=== PATIENT | male | born 1970 | race Caucasian/White ===

== ENCOUNTER 2018-07-12 10:08 | Inpatient (IN) | payer MEDICAID, SELFPAY ==
[2015-04-11 18:33] VITALS: BMI 28.0
[2018-07-12 10:10] VITALS: BP 172/114; PULSE 88; RESP 16; TEMP 36.5; O2SAT 97; BMI 28.8
[2018-07-12 10:57] LABS: Absolute Neutrophil Count 5.1 X10^3/uL (2.0-7.7); Basophil# 0.03 X10^3/uL; Basophil% 0.4 % (0-1); Eosinophil# 0.09 X10^3/uL; Eosinophils% 1.1 % (0-5); Hemoglobin 14.6 g/dl (13.0-16.5); Lymphocyte % 19.6 % (19-41); Mean Corp Hgb Conc 33.2 g/gl (32-36); Mean Corpuscular Hgb 33.2 pg (27.0-32.0); Mean Platelet Vol. 9.1 fl (6.2-12.0); Monocyte# 1.31 X10^3/uL; Neutrophil # 5.12 X10^3/uL (2.7-7.7); Neutrophil % 62.7 % (47-70); Platelet Count 289 K/mm3 (150-450); RBC Distribution Width CV 12.9 % (11.6-14.6); RBC Distribution Width SD 47.4 fl (35.1-43.9); White Blood Count 8.2 K/mm3 (4.4-11.0)
[2018-07-12 10:58] LABS: POSITIVE COUNT NO; POSITIVE DIFFERENTIAL NO; POSITIVE MORPHOLOGY NO
[2018-07-12 11:09] LABS: ALB/GLOB Ratio 0.9 RATIO (0.9-2.4); AST(SGOT) 37 U/L (15-37); Alanine Aminotransfer ALT/SGPT 83 U/L (16-61); Albumin, Serum 3.9 g/dL (3.2-5.0); Alkaline Phosphatase 68 U/L (45-117); Anion Gap 7 (5-15); BUN 12 mg/dL (7-18); BUN/Creat Ratio 13.2 RATIO (10-20); Calcium,Total 8.3 mg/dL (8.5-10.1); Chloride 101 mmol/L (98-107); Creatinine, Serum 0.91 mg/dL (0.70-1.30); EST Glomerular Filtration Rate 94 mL/min (>60); Est Glom Filt Rate - Afr Amer 114 mL/min (>60); Estimated Creatinine Clearance 97.12 ml/min; Globulin 4.2 g/dL (2.2-4.2); Glucose 102 mg/dL (74-106); Lipase 291 U/L (73-393); Potassium 3.9 mmol/L (3.5-5.1); Protein, Total 8.1 g/dL (6.4-8.2); Sodium Level 136 mmol/L (136-145)
--- NOTE | 2018-07-12 11:13 | ED.VISSUMM ---
- ER Visit Summary Date of Service: 07/12/18 Chief Complaint: [Request for detox from alcohol] History of Present Illness: The patient is a 48 M [presents to the emergency department complaining of wanting to detox from alcohol today. Patient states his last drink was around 3 AM today. Patient spoke with Lindsey Junior and was advised to come to the emergency department. Patient complains of some mild nausea and feeling shaky. Patient states he last went through detox a week ago and was admitted as an inpatient for 4 days. Patient started drinking again the day he got out. Patient states that he has been since let go from his job even though he had a doctor's excuse for being absent. Patient feels like that caused him to want to continue drinking. Patient denies feeling homicidal or suicidal. He denies any significant abdominal pain, chest pain, shortness of breath. Patient has a history of hypertension.] Physical Examination: [HEENT-PERRLA, EOMI. Cranial nerves II through XII grossly intact. TMs clear. Mucous membranes moist. No adenopathy. Cardiovascular-regular rate and rhythm without murmur or ectopy Lungs-clear to auscultation, chest wall stable without crepitus or subcu emphysema Abdomen-normoactive bowel sounds, soft, nontender, no rebound or rigidity, no peritoneal signs. Neuro hrjf-ipqezo-uaeo and heel ordoñez testing within normal limits, negative Romberg, negative for drift, fundi benign. Patient has a faint tremor noted with arms extended. Extremities-intact ?4, normal range of motion, normal pulses, atraumatic] Test Results: [CBC with differential obtained was normal. Chemistries unremarkable. LFTs were normal. Lipase was 291. Alcohol level was 168.] Emergency Department Course and Treatment: [Patient received Librium 25 mg p.o. Patient was evaluated by lindsey junior and recommendation was made for admission.] Treatment Plan: [Patient will be evaluated by hospitalist for admission] Disposition: [Admit] Impression: [Alcohol withdrawal Request for alcohol detox] This note was generated with [employer] dictation software. It may contain incorrect words, spelling, and punctuation that were not noted in review of the chart prior to signing ED Disposition - Plan for ED Patient: Referrals: Care Physician,No Primary [Primary Care Provider] -
[2018-07-12] MEDS: chlordiazePOXIDE 25 MG Capsule PO (12:05)
--- NOTE | 2018-07-12 12:48 | HP.PCM_ITS ---
Problem List (1) Alcohol withdrawal Status: Acute (2) Essential (primary) hypertension Status: Chronic (3) Alcohol dependence Status: Chronic (4) Tobacco dependence Status: Chronic History of Present Illness Date of Admission: 07/12/18 Chief Complaint: Tremors The patient is a 48 year old M with past medical history pertinent for alcohol dependence who recently completed alcohol detox at the facility in [facility] but resumed drinking after getting out of the facility. Patient presented to the emergency department with chief complaints of tremulousness. His last alcohol use was on the morning prior to being admitted. Alcohol level on admission was 168. His CIWA score was estimated to be 15. Admitted to regular nursing floor for medical stabilization. Questioning patient denied any hallucination denied any nausea no vomiting but did complain of tremulousness as stated above in addition to feeling anxious. Past Medical History Past Medical History (Chronic Problems): Chronic Problems Essential (primary) hypertension (Chronic) Alcohol dependence (Chronic) Tobacco dependence (Chronic) Allergies No Known Allergies Allergy (Verified 07/12/18 10:10) Smoking Status: Heavy Smoker (>10/day) - *Family History Paternal History Items: - - No documented history of hypertension, diabetes, no alcohol use Review of Systems Constitutional: Denies: Anorexia, Chills, Fever, Night Sweats, Weight Change HEENT: Denies: Head Aches, Sinus Congestion, Sinus Drainage Cardiovascular: Denies: Chest Pain, Orthopnea, Palpitations, Paroxysmal Noc. Dyspnea Respiratory: Denies: Cough, Shortness of breath at rest, Shortness of breath upon exertion, Sputum production Gastrointestinal: Denies: Abdominal Pain, Hematemesis, Hematochezia, Nausea, Melena, Vomiting Genitourinary: Denies: Dysuria, Frequency, Hematuria, Urgency Musculoskeletal: Denies: Joint Pain, Joint Tenderness Skin: Denies: Rash Neurological: Reports: Tremor. Denies: Focal weakness, Numbness, Tingling Psychiatric: Reports: Anxiety. Denies: Homicidal Ideations, Suicidal Ideations Hematologic/ Lymphatic: Denies: Easy Bruising, Easy Bleeding VTE Information - Inpt Only VTE Present on Admission: No VTE Mechan Device Prophylaxis: None Reason prophylaxis not ordered:: Treatment Not Indicated Patient Problems: Active and Suspected Problems Alcohol withdrawal (Acute) Objective: GENERAL: cooperative HEENT: Atraumatic; moist oral mucosa EYES; Anicteric, Normal Conjunctiva NECK; supple, normal thyroid, no distended JVD. RESPIRATORY: Diminished to auscultation bilaterally, CARDIOVASCULAR: Regular S1 S2, no audible murmurs GI: soft, non-tender, normoactive bowel sounds, : No Renal angle tenderness; EXTREMITIES: No edema, no clubbing, no cyanosis. MUSCULOSKELETAL: No Joint Tenderness; no muscle waisting NEURO: Awake; no lateralizing signs. SKIN: No Rash PSYCH; Normal affect - Physical Exam Vital Signs Temp Pulse Resp BP Pulse Ox 97.7 F L 88 16 172/114 H 97 07/12/18 10:10 07/12/18 10:10 07/12/18 10:10 07/12/18 10:10 07/12/18 10:10 Oxygen Delivery Method Room Air Weight: 88.4 kg Body Mass Index (BMI) 28.8 Laboratory Tests Past 24 Hrs 07/12/18 07/12/18 07/12/18 10:45 10:45 10:45 WBC 8.2 RBC 4.40 L Hgb 14.6 Hct 44.0 MCV 100.0 H MCH 33.2 H MCHC 33.2 RDW 12.9 RDW Differential 47.4 H Plt Count 289 MPV 9.1 Immature Gran % (Auto) 0.200 Neut % (Auto) 62.7 Lymph % (Auto) 19.6 [place] % (Auto) 16.0 H Eos % (Auto) 1.1 Baso % (Auto) 0.4 Absolute Neuts (auto) 5.1 Absolute Lymphs (auto) 1.60 Total Counted Not Reportable Sodium 136 Potassium 3.9 Chloride 101 Carbon Dioxide 28.0 Anion Gap 7 BUN 12 Creatinine 0.91 Estim Creat Clear Calc 97.12 Est GFR (MDRD) Af Amer 114 Est GFR (MDRD) Non-Af 94 BUN/Creatinine Ratio 13.2 Glucose 102 Calcium 8.3 L Total Bilirubin 0.30 AST 37 ALT 83 H Alkaline Phosphatase 68 Total Protein 8.1 Albumin 3.9 Globulin 4.2 Albumin/Globulin Ratio 0.9 Lipase 291 Ethyl Alcohol 168.0 Assessment/Plan All Active Problems Alcohol withdrawal (Acute) Patient is a 48-year-old gentleman with history of chronic alcohol use presented with withdrawal symptoms 1. Acute alcohol withdrawal patient has been admitted to regular nursing floor for medical stabilization using Librium 2. Chronic alcohol abuse counseled on cessation 3. Tobacco dependence counseled on cessation, offered nicotine patch for tobacco cravings 4. Hypertension previously on lisinopril however patient has not remained compliant 5. DVT prophylaxis low risk did encourage early ambulation Code Visit Inpatient E&M: 35956 Init Hosp L3
[2018-07-12 13:52] VITALS: BMI 27.6
[2018-07-12 13:57] VITALS: BP 153/109; PULSE 85; RESP 18; TEMP 36.7; O2SAT 99
[2018-07-12 14:00] VITALS: BP 153/109; PULSE 85; RESP 18; TEMP 36.7
[2018-07-12 14:05] VITALS: BMI 27.6
[2018-07-12] MEDS: Multivitamins,Therapeutic Tablet 1 TABLET PO ×2 (14:49)
[2018-07-12] MEDS: Lactated Ringers 1,000 ML 125 ML IV (14:49)
[2018-07-12] MEDS: chlordiazePOXIDE 25 MG Capsule 50 MG PO ×2 (14:49→20:44)
[2018-07-12] MEDS: hydrOXYzine PAM 25 MG Capsule 50 MG PO (14:50)
[2018-07-12] MEDS: Famotidine 20 MG Tablet PO ×2 (14:50)
[2018-07-12] MEDS: Thiamine Hydrochloride 100 MG Tablet PO ×2 (14:50)
[2018-07-12 18:00] VITALS: BP 150/98; PULSE 96; RESP 18; TEMP 36.8
[2018-07-12] MEDS: Methocarbamol 750 MG Tablet PO (20:44)
[2018-07-12] MEDS: traZODone 50 MG Tablet PO (20:44)
[2018-07-12 20:52] VITALS: BP 149/80; PULSE 87; RESP 16; TEMP 36.7; O2SAT 97
[2018-07-12 20:55] VITALS: BP 149/80; PULSE 87; RESP 16; TEMP 36.7
[2018-07-13] MEDS: chlordiazePOXIDE 25 MG Capsule 50 MG PO ×3 (02:07→18:51)
[2018-07-13 02:14] VITALS: BP 130/85; PULSE 62; RESP 16; TEMP 36.3
[2018-07-13] MEDS: Methocarbamol 750 MG Tablet PO (06:35)
[2018-07-13] MEDS: hydrOXYzine PAM 25 MG Capsule 50 MG PO (06:35)
[2018-07-13] MEDS: 0.9% NaCl Peripheral Flush Adult/Peds IV (06:36)
[2018-07-13 06:39] VITALS: BP 121/87; PULSE 73; RESP 16; TEMP 36.3
--- NOTE | 2018-07-13 07:37 | PN_ITS ---
Patient Problems: Active and Suspected Problems Alcohol withdrawal (Acute) Subjective: Patient is a 48-year-old gentleman with history of chronic alcohol abuse admitted with acute alcohol withdrawal admitted to regular nursing floor where he is currently undergoing medical stabilization. Patient seen still complains of feeling tremulous Objective: GENERAL: cooperative HEENT: Atraumatic; moist oral mucosa EYES; Anicteric, Normal Conjunctiva NECK; supple, normal thyroid, no distended JVD. RESPIRATORY: Diminished to auscultation bilaterally, CARDIOVASCULAR: Regular S1 S2, no audible murmurs GI: soft, non-tender, normoactive bowel sounds, : No Renal angle tenderness; EXTREMITIES: No edema, no clubbing, no cyanosis. NEURO: Awake; no lateralizing signs. SKIN: No Rash PSYCH; Normal affect Vitals/I&O's: Vital Signs Temp Pulse Resp BP Pulse Ox 97.4 F L 73 16 121/87 H 97 07/13/18 06:39 07/13/18 06:39 07/13/18 06:39 07/13/18 06:39 07/12/18 20:52 Oxygen Delivery Method Room Air Weight: 84.822 kg Body Mass Index (BMI) 27.6 Intake and Output for Last 24 Hours 07/11/18 07/12/18 07/13/18 23:59 23:59 23:59 Intake Total 1643 / 1643 Balance 1643 / 1643 Laboratory Results 07/12/18 10:45: WBC 8.2, RBC 4.40 L, Hgb 14.6, Hct 44.0, MCV 100.0 H, MCH 33.2 H , MCHC 33.2, RDW 12.9, RDW Differential 47.4 H, Plt Count 289, MPV 9.1, Immature Gran % (Auto) 0.200, Neut % (Auto) 62.7, Lymph % (Auto) 19.6, [place] % (Auto) 16.0 H, Eos % (Auto) 1.1, Baso % (Auto) 0.4, Absolute Neuts (auto) 5.1, Absolute Lymphs (auto) 1.60, Total Counted Not Reportable 07/12/18 10:45: Sodium 136, Potassium 3.9, Chloride 101, Carbon Dioxide 28.0, Anion Gap 7, BUN 12, Creatinine 0.91, Estim Creat Clear Calc 97.12, Est GFR (MDRD) Af Amer 114, Est GFR (MDRD) Non-Af 94, BUN/Creatinine Ratio 13.2, Glucose 102, Calcium 8.3 L, Total Bilirubin 0.30, AST 37, ALT 83 H, Alkaline Phosphatase 68, Total Protein 8.1, Albumin 3.9, Globulin 4.2, Albumin/Globulin Ratio 0.9, Lipase 291 07/12/18 10:45: Ethyl Alcohol 168.0 Current Medications Acetaminophen (Tylenol) 500 mg PO Q4H PRN PRN PRN Reason: Temp > 100.4 F Al Hydroxide/Mg Hydroxide (Mylanta Ii) 30 ml PO Q6H PRN PRN PRN Reason: dyspesia Bisacodyl (Dulcolax) 10 mg RECTAL DAILY PRN PRN Reason: Constipation Bisacodyl (Dulcolax) 5 mg PO DAILY PRN PRN PRN Reason: Constipation Chlordiazepoxide (Librium) 50 mg PO Q6H COUNT INCLUDES THE [facility]; Taper Stop: 07/15/18 16:59 Last Admin: 07/13/18 02:07 Dose: 50 mg Dicyclomine HCl (Bentyl) 20 mg PO Q6H PRN PRN PRN Reason: abdominal discomfort Famotidine (Pepcid) 20 mg PO BID COUNT INCLUDES THE [facility] Last Admin: 07/12/18 14:50 Dose: 20 mg [facility]) [facility] Hydroxyzine Pamoate (Vistaril Pamoate Capsule) 50 mg PO Q6H PRN PRN PRN Reason: Mild Anxiety (score 1/3) Last Admin: 07/13/18 06:35 Dose: 50 mg Thiamine HCl 200 mg/ Sodium (Chloride) 52 mls @ 200 mls/hr IV DAILY COUNT INCLUDES THE [facility] Ibuprofen (Motrin) 600 mg PO Q8H PRN PRN PRN Reason: Mild-Moderate Pain (1-5/10) Loperamide HCl (Imodium) 2 - 4 mg PO UD PRN PRN Reason: LOOSE STOOLS Lorazepam (Ativan) 1 mg IV Q4H PRN PRN PRN Reason: Severe Anxiety Magnesium Hydroxide (Milk Of Magnesia) 30 ml PO DAILY PRN PRN PRN Reason: Constipation Methocarbamol (Methocarbamol) 750 mg PO Q6H PRN PRN PRN Reason: Muscle Aches Last Admin: 07/13/18 06:35 Dose: 750 mg Multivitamins (Multivitamin) [facility] Last Admin: 07/12/18 14:49 Dose: 1 tablet Nicotine (Nicoderm Cq (Pbkc)) 21 mg TRANSDERM. DAILY COUNT INCLUDES THE [facility] Last Admin: 07/12/18 14:50 Dose: 21 mg Ondansetron HCl (Zofran Odt) 4 mg PO Q6H PRN PRN PRN Reason: NAUSEA Psyllium Hydrophilic Mucilloid (Metamucil) 1 packet PO DAILY PRN PRN PRN Reason: CONSTIPATION Senna (Senokot) 1 tablet PO QHS PRN PRN Reason: Constipation Sodium Chloride () 5 - 15 ml IV UD PRN PRN Reason: SALINE FLUSH Last Admin: 07/13/18 06:36 Dose: 10 ml Thiamine HCl (Vitamin B1) [facility] Last Admin: 07/12/18 14:50 Dose: 100 mg Trazodone HCl (Desyrel) 50 mg PO QHS COUNT INCLUDES THE [facility] Last Admin: 07/12/18 20:44 Dose: 50 mg Medical Necessity - Tobacco Use Smoking Status: Heavy Smoker (>10/day) Assessment/Plan All Active Problems Alcohol withdrawal (Acute) Patient is a 48-year-old gentleman with history of chronic alcohol use presented with withdrawal symptoms 1. Acute alcohol withdrawal patient has been admitted to regular nursing floor for medical stabilization using Librium 2. Chronic alcohol abuse counseled on cessation 3. Tobacco dependence counseled on cessation, offered nicotine patch for tobacco cravings 4. Hypertension previously on lisinopril however patient has not remained compliant 5. DVT prophylaxis low risk did encourage early ambulation Code Visit Inpatient E&M: 11990 Subs Hosp L3
[2018-07-13 09:07] VITALS: BP 117/72; PULSE 70; RESP 16; TEMP 36.6; O2SAT 98
[2018-07-13] MEDS: Thiamine Hydrochloride 100 MG Tablet PO (09:23)
[2018-07-13] MEDS: Famotidine 20 MG Tablet PO ×2 (09:23→20:49)
[2018-07-13] MEDS: Folic Acid 1 MG Tablet PO (09:23)
[2018-07-13] MEDS: Multivitamins,Therapeutic Tablet 1 TABLET PO (09:23)
[2018-07-13 14:21] VITALS: BP 139/99; PULSE 79; RESP 18; TEMP 36.8; O2SAT 98
--- NOTE | 2018-07-13 16:09 | CHAPLAIN ---
Type of Pastoral Visit _x__ Initial Visit ___ Follow-up Visit ___ On-call Visit ___ General Patient Visit ___ Spiritual Assessment ___ Family Conference ___ Bereavement ___ Rapid Response ___ Code Blue ___ Other (describe below) Pastoral Care Referral From _x__ Patient ___ Family ___ Nurse ___ Physician ___ Bilingual Hr Generalist ___ Anatomic Pathologist _x- [facility] staff - Other (describe below) Sacrament/Intervention _x__ Active listening ___ Anointing ___ Religious ___ Bereavement ___ Communion _x__ Leanne exploration ___ _x__ Life review _x__ Prayer ___ Reconciliation ___ Sacrament of Sick _x__ Supportive presence ___ Wedding ___ Other (describe below) Pastoral Comments long presentation of life story and admissions of life regrets and decisions; pt has a heritage of [employer] and [employer] attendance in childhood and is open to spiritual help; pt is disconnected from spiritual support at this time but has supportive parents; pt says that his three children are doing very well in life; pt describes his situation as being at rock bottom; patient describes a list of worries and has anxiety about how he is going to get out of this mess; pt welcomes prayer and is open to further visits
[2018-07-13 18:52] VITALS: BP 131/72; PULSE 69; RESP 16; TEMP 36.4; O2SAT 97
[2018-07-13] MEDS: traZODone 50 MG Tablet PO (20:49)
[2018-07-13 20:56] VITALS: BP 113/71; PULSE 60; RESP 16; TEMP 36.4; O2SAT 97
[2018-07-14] MEDS: chlordiazePOXIDE 25 MG Capsule 50 MG PO ×2 (01:05→08:52)
[2018-07-14 01:32] VITALS: BP 117/79; PULSE 66; RESP 16; TEMP 36.3
[2018-07-14] MEDS: hydrOXYzine PAM 25 MG Capsule 50 MG PO (05:28)
--- NOTE | 2018-07-14 07:24 | PCM.PN.HOSP ---
Patient Problems: Active and Suspected Problems Alcohol withdrawal (Acute) Subjective: Patient seen he wants to be discharged so he can go to [facility] for his long-term rehab Objective: GENERAL: cooperative HEENT: Atraumatic; moist oral mucosa EYES; Anicteric, Normal Conjunctiva NECK; supple, normal thyroid, no distended JVD. RESPIRATORY: Diminished to auscultation bilaterally, CARDIOVASCULAR: Regular S1 S2, no audible murmurs GI: soft, non-tender, normoactive bowel sounds, : No Renal angle tenderness; EXTREMITIES: No edema, no clubbing, no cyanosis. NEURO: Awake; no lateralizing signs. SKIN: No Rash PSYCH; Normal affect Vitals/I&O's: Vital Signs Temp Pulse Resp BP Pulse Ox 97.4 F L 66 16 117/79 97 07/14/18 01:32 07/14/18 01:32 07/14/18 01:32 07/14/18 01:32 07/13/18 20:56 Oxygen Delivery Method Room Air Weight: 84.8 kg Body Mass Index (BMI) 27.6 Intake and Output for Last 24 Hours 07/12/18 07/13/18 07/14/18 23:59 23:59 23:59 Intake Total 1643 / 1643 Balance 1643 / 1643 Current Medications Acetaminophen (Tylenol) 500 mg PO Q4H PRN PRN PRN Reason: Temp > 100.4 F Al Hydroxide/Mg Hydroxide (Mylanta Ii) 30 ml PO Q6H PRN PRN PRN Reason: dyspesia Bisacodyl (Dulcolax) 10 mg RECTAL DAILY PRN PRN Reason: Constipation Bisacodyl (Dulcolax) 5 mg PO DAILY PRN PRN PRN Reason: Constipation Chlordiazepoxide (Librium) 50 mg PO Q8H COUNTS INCLUDE 234 BEDS AT THE [facility]; Taper Stop: 07/15/18 16:59 Last Admin: 07/14/18 01:05 Dose: 50 mg Dicyclomine HCl (Bentyl) 20 mg PO Q6H PRN PRN PRN Reason: abdominal discomfort Famotidine (Pepcid) 20 mg PO BID COUNTS INCLUDE 234 BEDS AT THE [facility] Last Admin: 07/13/18 20:49 Dose: 20 mg [facility] Last Admin: 07/13/18 09:23 Dose: 1 mg Hydroxyzine Pamoate (Vistaril Pamoate Capsule) 50 mg PO Q6H PRN PRN PRN Reason: Mild Anxiety (score 1/3) Last Admin: 07/14/18 05:28 Dose: 50 mg Ibuprofen (Motrin) 600 mg PO Q8H PRN PRN PRN Reason: Mild-Moderate Pain (1-5/10) Loperamide HCl (Imodium) 2 - 4 mg PO UD PRN PRN Reason: LOOSE STOOLS Lorazepam (Ativan) 1 mg IV Q4H PRN PRN PRN Reason: Severe Anxiety Magnesium Hydroxide (Milk Of Magnesia) 30 ml PO DAILY PRN PRN PRN Reason: Constipation Methocarbamol (Methocarbamol) 750 mg PO Q6H PRN PRN PRN Reason: Muscle Aches Last Admin: 07/13/18 06:35 Dose: 750 mg Multivitamins (Multivitamin) [facility] Last Admin: 07/13/18 09:23 Dose: 1 tablet Nicotine (Nicoderm Cq (Pbkc)) 21 mg TRANSDERM. DAILY COUNTS INCLUDE 234 BEDS AT THE [facility] Last Admin: 07/13/18 18:51 Dose: 21 mg Ondansetron HCl (Zofran Odt) 4 mg PO Q6H PRN PRN PRN Reason: NAUSEA Psyllium Hydrophilic Mucilloid (Metamucil) 1 packet PO DAILY PRN PRN PRN Reason: CONSTIPATION Senna (Senokot) 1 tablet PO QHS PRN PRN Reason: Constipation Sodium Chloride () 5 - 15 ml IV UD PRN PRN Reason: SALINE FLUSH Last Admin: 07/13/18 06:36 Dose: 10 ml Thiamine HCl (Vitamin B1) [facility] Last Admin: 07/13/18 09:23 Dose: 100 mg Trazodone HCl (Desyrel) 50 mg PO QHS COUNTS INCLUDE 234 BEDS AT THE [facility] Last Admin: 07/13/18 20:49 Dose: 50 mg Medical Necessity - Tobacco Use Smoking Status: Heavy Smoker (>10/day) Assessment/Plan All Active Problems Alcohol withdrawal (Acute) Patient is a 48-year-old gentleman with history of chronic alcohol use presented with withdrawal symptoms 1. Acute alcohol withdrawal patient has been admitted to regular nursing floor for medical stabilization using Librium 2. Chronic alcohol abuse counseled on cessation 3. Tobacco dependence counseled on cessation, offered nicotine patch for tobacco cravings 4. Hypertension previously on lisinopril however patient has not remained compliant 5. DVT prophylaxis low risk did encourage early ambulation Code Visit Inpatient E&M: 45216 Subs Hosp L2
--- NOTE | 2018-07-14 08:06 | DCINST_ITS ---
- Discharge Diagnoses Current Active Problems: Current Active and Chronic Problems Essential (primary) hypertension (Chronic) Alcohol withdrawal (Acute) Alcohol dependence (Chronic) Tobacco dependence (Chronic) You will use the following diet at home:: No restrictions Discharge Activity: May not drive while taking narcotic pain medications. Allergies/Adverse Reactions: Allergies No Known Allergies Allergy (Unverified 07/12/18 10:10) Medications to take at Discharge Allopurinol [Zyloprim] 100 mg PO DAILYCM 04/11/15 Hydrocodone/Acetaminophen [Hydrocodone-Acetamin 10-325 mg] 1 each PO DAILY 04/11/15 Omeprazole [Prilosec] 40 mg PO DAILY 04/11/15 Ondansetron [Zofran Odt] 8 mg PO Q8H PRN PRN #10 04/11/15 Lisinopril [Prinivil] 5 mg PO 07/12/18 Primary Care Physician: Care Physician,No Primary [Primary Care Provider] - Please follow up with your Primary Care Physician in: in 1-2 weeks Test Results: Test results from this visit will be discussed in further detail at your follow- up appointment, if applicable. Proposed Discharge Date: 07/14/18
--- NOTE | 2018-07-14 08:06 | PCM.DC.SUM ---
Discharge Date and Diagnosis - Problem List Patient Problems: Active and Suspected Problems Alcohol withdrawal (Acute) Date of Admission: 07/12/18 Date of Discharge: 07/14/18 - Primary Discharge Diagnosis Active and Suspected Problems Alcohol withdrawal (Acute) - Secondary Discharge Diagnosis Chronic Problems Essential (primary) hypertension (Chronic) Alcohol dependence (Chronic) Tobacco dependence (Chronic) Hospital Course and Treatment Summary of Care Provided: Patient is a 48-year-old gentleman with history of chronic alcohol use presented with withdrawal symptoms 1. Acute alcohol withdrawal patient has been admitted to regular nursing floor for medical stabilization using Librium patient requested to be discharged on 07/14/2018 2 days after his hospitalization so he called transition to [facility] in [facility] for long-term rehab 2. Chronic alcohol abuse counseled on cessation 3. Tobacco dependence counseled on cessation, offered nicotine patch for tobacco cravings 4. Hypertension previously on lisinopril however patient has not remained compliant 5. DVT prophylaxis low risk did encourage early ambulation Patient Problems: Active and Suspected Problems Alcohol withdrawal (Acute) Objective: GENERAL: cooperative HEENT: Atraumatic; moist oral mucosa EYES; Anicteric, Normal Conjunctiva NECK; supple, normal thyroid, no distended JVD. RESPIRATORY: Diminished to auscultation bilaterally, CARDIOVASCULAR: Regular S1 S2, no audible murmurs GI: soft, non-tender, normoactive bowel sounds, : No Renal angle tenderness; EXTREMITIES: No edema, no clubbing, no cyanosis. NEURO: Awake; no lateralizing signs. SKIN: No Rash PSYCH; Normal affect - Physical Exam Vital Signs Temp Pulse Resp BP Pulse Ox 97.4 F L 66 16 117/79 97 07/14/18 01:32 07/14/18 01:32 07/14/18 01:32 07/14/18 01:32 07/13/18 20:56 Oxygen Delivery Method Room Air Weight: 84.8 kg Body Mass Index (BMI) 27.6 Intake and Output for Last 24 Hours 07/12/18 07/13/18 07/14/18 23:59 23:59 23:59 Intake Total 1643 / 1643 Balance 1643 / 1643 Discharge Activity: May not drive while taking narcotic pain medications. Home Medications: Medications to take at Discharge Allopurinol [Zyloprim] 100 mg PO DAILYCM 04/11/15 Hydrocodone/Acetaminophen [Hydrocodone-Acetamin 10-325 mg] 1 each PO DAILY 04/11/15 Omeprazole [Prilosec] 40 mg PO DAILY 04/11/15 Ondansetron [Zofran Odt] 8 mg PO Q8H PRN PRN #10 04/11/15 Lisinopril [Prinivil] 5 mg PO 07/12/18 Primary Care Physician: Care Physician,No Primary [Primary Care Provider] - Please follow up with your Primary Care Physician in: in 1-2 weeks Disposition: Home Minutes spent on discharge:: 35 Patient Condition:: Stable Medical Necessity - Tobacco Use Smoking Status: Heavy Smoker (>10/day) Tobacco Use: Cigarettes Meaningful Use Info Meaningful Use Diagnoses (Choose all that apply): None applicable Code Visit Inpatient E&M: 48880 Disch Hosp
[2018-07-14] MEDS: Folic Acid 1 MG Tablet PO (08:41)
[2018-07-14] MEDS: Thiamine Hydrochloride 100 MG Tablet PO (08:41)
[2018-07-14] MEDS: Famotidine 20 MG Tablet PO (08:41)
[2018-07-14] MEDS: Multivitamins,Therapeutic Tablet 1 TABLET PO (08:42)
--- NOTE | 2018-07-14 08:58 | DCINST_ITS ---
- Discharge Diagnoses Current Active Problems: Current Active and Chronic Problems Essential (primary) hypertension (Chronic) Alcohol withdrawal (Acute) Alcohol dependence (Chronic) Tobacco dependence (Chronic) Discharge Activity: May not drive while taking narcotic pain medications. Allergies/Adverse Reactions: Allergies No Known Allergies Allergy (Unverified 07/12/18 10:10) Medications to take at Discharge Allopurinol [Zyloprim] 100 mg PO DAILYCM 04/11/15 Hydrocodone/Acetaminophen [Hydrocodone-Acetamin 10-325 mg] 1 each PO DAILY 04/11/15 Omeprazole [Prilosec] 40 mg PO DAILY 04/11/15 Ondansetron [Zofran Odt] 8 mg PO Q8H PRN PRN #10 04/11/15 Lisinopril [Prinivil] 5 mg PO DAILY 90 Days #90 tab 07/14/18 The following prescriptions were given: Lisinopril [Prinivil] 5 mg PO DAILY 90 Days #90 tab Primary Care Physician: Care Physician,No Primary [Primary Care Provider] - Please follow up with your Primary Care Physician in: in 1-2 weeks Test Results: Test results from this visit will be discussed in further detail at your follow- up appointment, if applicable. Proposed Discharge Date: 07/14/18
[2018-07-14 09:01] VITALS: BP 150/99; PULSE 83; RESP 18; TEMP 36.7; O2SAT 98
== END 2018-07-14 09:09 | disposition home or self-care (01) | DRG 775 ==
LOC: ED 10:50 → MS2 12:44
PROVIDERS: Admitting Provider Internal Medicine; Emergency Provider Emergency Medicine; Referring Provider Internal Medicine; Visit Provider Internal Medicine
DX: F10.239 Alcohol dependence with withdrawal, unspecified (principal); Y90.6 Blood alcohol level of 120-199 mg/100 ml; F17.210 Nicotine dependence, cigarettes, uncomplicated; I10 Essential (primary) hypertension
CPT/HCPCS: 80053; 80320; 83690; 85025; 97802; 99282; 99406; J7120; A4216; G0480

== ENCOUNTER → 2023-12-14 | Outpatient (CLI) | payer MEDICAID, SELFPAY ==
--- NOTE | 2023-12-14 14:50 | RAD_ITS ---
STUDY: X-RAY - CERVICAL SPINE REASON FOR EXAM: Male, 53 years old. Chronic neck pain TECHNIQUE: 5 view(s) of the cervical spine were obtained. COMPARISON: None FINDINGS: Normal anterior atlantoaxial articulation. Normal odontoid process. Normal cervical lordosis. 2 mm retrolisthesis of C5 on C6. There is multi-level endplate spondylosis. There is multi-level degenerative disc disease with multilevel disc space narrowing. There is multi-level osseous foraminal stenosis. The soft tissue structures are unremarkable. RAD/Cerv Spine 4 or 5 Views IMPRESSION: Degenerative disc disease. MRI may be useful. Electronically Signed: Conrad Clark MD at 8:49 EDT ,
== END | disposition home or self-care (01) ==
PROVIDERS: PCP Family Medicine; Referring Provider Family Medicine; Visit Provider Family Medicine
DX: M54.2 Cervicalgia (principal); G89.29 Other chronic pain
CPT/HCPCS: 72050

== ENCOUNTER 2024-07-30 06:11 | Outpatient (CLI) | payer MEDICAID, SELFPAY ==
[2024-07-30 06:31] LABS: Absolute Lymphocyte Count 2.78 X10^3/uL (0.83-4.51); Absolute Neutrophil Count 4.2 X10^3/uL (2.0-7.7); Basophil# 0.05 X10^3/uL; Basophil% 0.6 % (0-1); Eosinophil# 0.17 X10^3/uL; Eosinophils% 2.1 % (0-5); Hematocrit 40.5 % (40-54); Hemoglobin 13.2 g/dL (13.0-16.5); Lymphocyte # 2.78 X10^3/ul (0.83-4.51); Lymphocyte % 34.2 % (19-41); Mean Corp Hgb Conc 32.6 g/dL (32-36); Mean Corpuscular Hgb 31.8 pg (27.0-32.0); Mean Corpuscular Volume 97.6 fL (80-94); Mean Platelet Vol. 8.7 fl (6.2-12.0); Monocyte# 0.86 X10^3/uL; Monocyte% 10.6 % (0-10); NRBC Flagged by Analyzer 0 % (0-5); Neutrophil # 4.22 X10^3/uL (2.7-7.7); Neutrophil % 51.8 % (47-70); Platelet Count 281 K/mm3 (150-450); RBC Distribution Width CV 13.6 % (11.6-14.6); Red Blood Count 4.15 M/mm3 (4.6-6.2); White Blood Count 8.1 K/mm3 (4.4-11.0)
[2024-07-30 06:50] LABS: Hemoglobin A1c 5.7 % (<=5.6)
[2024-07-30 14:06] LABS: ALB/GLOB Ratio 1.3 RATIO (0.9-2.4); AST(SGOT) 18 U/L (<=37); Alanine Aminotransfer ALT/SGPT 9 U/L (<=46); Albumin, Serum 4.4 g/dL (3.5-5.0); Alkaline Phosphatase 84 U/L (40-129); Anion Gap 12 (5-15); BUN 18 mg/dL (4-19); BUN/Creat Ratio 10.8 RATIO (10-20); Calcium,Total 9.4 mg/dL (7.6-11.0); Carbon Dioxide 24.7 mmol/L (21.0-32.0); Chloride 101 mmol/L (98-108); Cholesterol 192 mg/dL (<=200); Creatinine, Serum 1.65 mg/dL (0.70-1.20); EST Glomerular Filtration Rate 48 (>60); Globulin 3.4 g/dL (2.2-4.2); Glucose 109 mg/dL (70-99); High Density Lipoprotein 55 mg/dL; Low Density Lipoprotein Calc. 101 mg/dL; Potassium 4.9 mmol/L (3.3-5.1); Protein, Total 7.8 g/dL (5.9-8.4); Sodium Level 138 mmol/L (133-145); Total Bilirubin 0.29 mg/dL (0.00-1.30); Triglycerides 183 mg/dL; Very Low Density Lipoprotein 37 mg/dL (5-40)
== END 2024-07-30 23:59 | disposition home or self-care (01) ==
PROVIDERS: PCP Family Medicine; Referring Provider Family Medicine; Visit Provider Family Medicine
DX: I10 Essential (primary) hypertension (principal); J44.9 Chronic obstructive pulmonary disease, unspecified; Z12.5 Encounter for screening for malignant neoplasm of prostate; Z13.220 Encounter for screening for lipoid disorders; R53.83 Other fatigue
CPT/HCPCS: 36415; 80053; 80061; 82306; 83036; 84443; 85025

== ENCOUNTER 2024-08-21 00:04 | Inpatient (IN) | payer MEDICAID, SELFPAY ==
[2024-08-21] VITALS (8 sets, daily range): BP systolic 115–145; BP diastolic 68–90; PULSE 66–89; RESP 16–18; TEMP 36.5–36.8; O2SAT 93–98; BMI 32.6; BMI 32.2
[2024-08-21 02:51] LABS: ALB/GLOB Ratio 1.3 RATIO (0.9-2.4); AST(SGOT) 20 U/L (<=37); Alanine Aminotransfer ALT/SGPT 8 U/L (<=46); Albumin, Serum 4.3 g/dL (3.5-5.0); Alcohol, Blood (Medical)-Serum < 10.1 mg/dL (<=10.0); Alkaline Phosphatase 87 U/L (40-129); Anion Gap 13 (5-15); BUN 25 mg/dL (4-19); BUN/Creat Ratio 16.3 RATIO (10-20); Calcium,Total 9.1 mg/dL (7.6-11.0); Carbon Dioxide 22.2 mmol/L (21.0-32.0); Chloride 100 mmol/L (98-108); Creatinine, Serum 1.53 mg/dL (0.70-1.20); EST Glomerular Filtration Rate 53 (>60); Estimated Creatinine Clearance 60.98 ml/min (50-250); Globulin 3.3 g/dL (2.2-4.2); Glucose 94 mg/dL (70-99); Potassium 4.4 mmol/L (3.3-5.1); Protein, Total 7.5 g/dL (5.9-8.4); Sodium Level 135 mmol/L (133-145); Total Bilirubin 0.35 mg/dL (0.00-1.30)
[2024-08-21 02:52] LABS: Amphetamine Urine NEGATIVE (<1000 ng/mL); Barbiturate Urine NEGATIVE (< 200 ng/mL); Benzodiazepine Urine PRESUMPTIVE POSITIVE (< 200 ng/mL); Buprenorphine Urine NEGATIVE (< 200 ng/mL); Cocaine Urine NEGATIVE (< 300 ng/mL); Fentanyl, Urine NEGATIVE; Methadone Urine NEGATIVE (< 300 ng/mL); Opiates Urine NEGATIVE (< 300 ng/mL); Oxycodone, Urine NEGATIVE (< 100 ng/mL); PCP Urine NEGATIVE (< 25 ng/mL); THC Urine NEGATIVE (< 50 ng/mL)
[2024-08-21 02:58] LABS: Absolute Lymphocyte Count 1.75 X10^3/uL (0.83-4.51); Absolute Neutrophil Count 5.1 X10^3/uL (2.0-7.7); Basophil# 0.04 X10^3/uL; Basophil% 0.5 % (0-1); Eosinophil# 0.16 X10^3/uL; Eosinophils% 2.1 % (0-5); Hematocrit 37.4 % (40-54); Hemoglobin 12.7 g/dL (13.0-16.5); Lymphocyte # 1.75 X10^3/ul (0.83-4.51); Lymphocyte % 22.9 % (19-41); Mean Corpuscular Hgb 32.8 pg (27.0-32.0); Mean Corpuscular Volume 96.6 fL (80-94); Mean Platelet Vol. 8.6 fl (6.2-12.0); Monocyte# 0.55 X10^3/uL; Monocyte% 7.2 % (0-10); NRBC Flagged by Analyzer 0.3 % (0-5); Neutrophil # 5.08 X10^3/uL (2.7-7.7); Neutrophil % 66.5 % (47-70); Platelet Count 262 K/mm3 (150-450); RBC Distribution Width CV 14.6 % (11.6-14.6); RBC Distribution Width SD 51.8 fl (35.1-43.9); Red Blood Count 3.87 M/mm3 (4.6-6.2); White Blood Count 7.6 K/mm3 (4.4-11.0)
--- NOTE | 2024-08-21 03:25 | PCM.HP.STD ---
[facility] - General General Date of Admission: 08/21/24 Date of Service: 08/21/24 Chief Complaint: EtOH Withdrawal. HPI Narrative CARROLL BUTTS, is a 54 M with a past medical history of essential hypertension; on amlodipine and lisinopril, hypothyroidism; on levothyroxine, obesity; with a BMI of 32.6 this admission, MONICA, chronic alcohol abuse; with patient admitting to drinking 1/5 of vodka daily plus multiple 'screwdrivers', history of tobacco abuse;with subsequent COPD, history of RA, history of umbilical hernia; s/p repair, history of renal calculi, RLS, bipolar disorder; on escitalopram, fluoxetine, bupropion, alprazolam nightly and as needed hydroxyzine 3 times daily and history of admission here from July 12, 2018 to July 14, 2018 for treatment of acute alcohol withdrawal with patient subsequently transition to [facility] in [place], [place] for long-term rehabilitation who presents to [facility] ER complaining of alcohol withdrawal. Mr. Butts reports his symptoms began approximately shortly after he took his last alcoholic drink on the morning of August 20, 2024 with a gradual-onset of tremors and heightened anxiety so he decided to come in for further evaluation and treatment. He also admits to increasing abdominal distention that is new with patient denying history of cirrhosis or similar previous episodes. His accompanied him at the bedside and helped augment the history. There was no report of fever, chills, nausea, vomiting, diarrhea, abdominal pain, chest pain or headache. In the ER he was noted to have a MADHU less than 10 mg/dL and he was diagnosed with Acute EtOH Withdrawal in the setting of Chronic EtOH Abuse complicated by suspected new-onset Cirrhosis and he was then admitted to the general medical floor for ongoing care for stay that is expected to extend beyond 2 midnights. FOR[facility], LATER [facility] Medical History (Updated 08/21/24 @ 04:[address] Julito Jones, DO) Umbilical hernia Restless legs High cholesterol Substance abuse Alcohol abuse Bipolar disorder Anxiety Depression Hypothyroidism Diabetes Rheumatoid arthritis Kidney stones Smoker Sleep apnea COPD (chronic obstructive pulmonary disease) Irregular heart beat Chest pain Hypertension Home Medications ?Medication ?Instructions ?Recorded ?Last Taken ?Type alprazolam 0.5 mg tablet 0.5 mg PO QHS anxiety 08/21/24 Unknown History amlodipine 10 mg tablet 10 mg PO DAILY bp 08/21/24 Unknown History bupropion HCl 150 mg 24 hr tablet, 150 mg PO DAILY depression 08/21/24 Unknown History extended release escitalopram oxalate 20 mg tablet 20 mg PO DAILY mood 08/21/24 Unknown History fluoxetine 20 mg capsule 20 mg PO DAILY mood 08/21/24 Unknown History hydroxyzine HCl 25 mg tablet 25 mg PO TID PRN PRN anxiety 08/21/24 Unknown History levothyroxine 50 mcg tablet 50 mcg PO DAILY thyroid 08/21/24 Unknown History lisinopril 10 mg tablet 10 mg PO DAILY bp 08/21/24 Unknown History Allergy/AdvReac Type Severity Reaction Status Date / Time No Known Allergies Allergy Verified 08/21/24 00:07 Social History (System 08/08/18 @ 14:59 by Yoselyn Winchester) Smoking Status: Heavy Smoker (>10/day) ROS ROS Narrative Review of Systems: Constitutional: Patient denies fever or chills. Eyes: Patient denies changes in vision or discharge from eyes. ENT: Patient denies runny nose, sore throat or ear pain. Resp: Patient denies shortness of breath or cough. CV: Patient denies chest pain, palpitations or heart racing. GI: Patient admits to increasing abdominal distention but he denies pain, nausea, vomiting, constipation or diarrhea. : Patient denies dysuria or hematuria. MSK: Patient denies arthralgias or myalgias. Skin: Patient denies rash, abscess, wounds or jaundice. Psych: Patient admits to heightened anxiety but he denies SI or HI. Neuro: Patient admits to tremors in his upper extremities but he denies headache, paresthesias or focal neurologic deficits. Allergy: Patient denies lip swelling, tongue swelling or urticaria. Hematology: Patient denies easy bleeding or easy bruisability. Endocrinology: Patient denies polyuria, polydipsia, polyphagia or heat/cold intolerance. 14 point ROS otherwise negative except for positives noted above in HPI. Vital Signs Vital Signs Vital Signs: 08/21/24 00:05 Temperature 98 F Temperature Source Oral Pulse Rate 81 Respiratory Rate 16 Blood Pressure 136/90 H Blood Pressure Mean 105 Pulse Ox 97 Oxygen Delivery Method Room Air Weight Weight: 214 lb 9.6 oz Body Mass Index (BMI) 32.6 Physical Exam Const alert, oriented x3 and no apparent distress Constitutional Narrative: Obese and tremulous. General Appearance: cooperative HEENT normocephalic, head/scalp atraumatic, hearing grossly normal bilaterally and moist oral mucous membranes Eyes PERRL and EOMs intact bilaterally Neck no lymphadenopathy and supple Resp normal respiratory effort, no retractions, no use of accessory muscles and clear to auscultation bilaterally Cardio regular rate and regular rhythm GI normal to inspection, nondistended, normoactive bowel sounds, soft to palpation, non-tender and non-distended Extremity normal to inspection, full ROM and no clubbing, cyanosis or edema Skin Skin Narrative: Patient has no evidence of rash, abscess, wounds or jaundice. Neuro oriented x3, CN's II-XII intact bilaterally, moves all extremities and no focal motor deficits Sensorium / Orientation: awake, alert, oriented to person, oriented to place and oriented to time Speech: speech normal Psych affect normal Results Medical Records Data Attestation: I reviewed the patient's medical records Lab / Micro Data Attestation: I reviewed the patient's lab results. 08/21/24 01:05 08/21/24 01:05 Labs: Laboratory Results - last 24 hr 08/21/24 01:05: WBC 7.6, RBC 3.87 L, Hgb 12.7 L, Hct 37.4 L, MCV 96.6 H, MCH 32.8 H, MCHC 34.0, RDW Std Deviation 51.8 H, RDW Coeff of Debbie 14.6, Plt Count 262, MPV 8.6, Immature Gran % (Auto) 0.800, Neut % (Auto) 66.5, Lymph % (Auto) 22.9, [place] % (Auto) 7.2, Eos % (Auto) 2.1, Baso % (Auto) 0.5, Absolute Neuts (auto) 5.1, Absolute Lymphs (auto) 1.75, Nucleated RBC % 0.3, Sodium 135, Potassium 4.4, Chloride 100, Carbon Dioxide 22.2, Anion Gap 13, BUN 25 H, Creatinine 1.53 H, Estim Creat Clear Calc 60.98, Est GFR (MDRD) Non-Af 53 L, BUN/Creatinine Ratio 16.3, Glucose 94, Calcium 9.1, Total Bilirubin 0.35, AST 20, ALT 8, Alkaline Phosphatase 87, Total Protein 7.5, Albumin 4.3, Globulin 3.3, Albumin/Globulin Ratio 1.3, Ethyl Alcohol < 10.1 08/21/24 01:15: Urine Opiates Screen NEGATIVE, U Buprenorphine Qual NEGATIVE, Ur Oxycodone Screen NEGATIVE, Urine Methadone Screen NEGATIVE, Urine Fentanyl Screen NEGATIVE, Ur Barbiturates Screen NEGATIVE, Ur Phencyclidine Scrn NEGATIVE, Ur Amphetamines Screen NEGATIVE, U Benzodiazepines Scrn PRESUMPTIVE POSITIVE, Urine Cocaine Screen NEGATIVE, U Cannabinoids Screen NEGATIVE Assessment & Plan Assessment/Plan (1) Alcohol withdrawal: QUALIFIERS: Complication of substance-induced condition: uncomplicated Qualified Code(s): F10.930 - Alcohol use, unspecified with withdrawal, uncomplicated (2) Alcohol dependence: QUALIFIERS: Complication of substance-induced condition: uncomplicated Substance use status: in withdrawal Qualified Code(s): F10.230 - Alcohol dependence with withdrawal, uncomplicated (3) Cirrhosis: QUALIFIERS: Hepatic cirrhosis type: alcoholic cirrhosis Ascites presence: with ascites Qualified Code(s): K70.31 - Alcoholic cirrhosis of liver with ascites (4) Bipolar disorder: QUALIFIERS: Active/Remission status: remission status unspecified Qualified Code(s): F31.9 - Bipolar disorder, unspecified (5) Essential (primary) hypertension: (6) Obesity (BMI 30.0-34.9): (7) Tobacco dependence: PLAN: Plan 1. Acute EtOH Withdrawal in setting of Chronic EtOH Abuse; with suspected new Cirrhosis - Admit to general medical floor for treatment under the EtOH detoxification program primarily consisting of phenobarbital taper. EtOH cessation will be strongly encouraged. Give ondansetron ODT as needed for nausea and vomiting. Give ibuprofen as needed for pain or fever. Check PT/INR to evaluate liver synthetic function. Check abdominal ultrasound to confirm suspicion of cirrhosis and quantify amount of ascites. We will consult case management see this patient on rounds in a.m. to help set him up with a RAMP program with help appreciated in advance. Finally, we will consult gastroenterology disease patient on rounds in the a.m. for further recommendations regarding his new cirrhosis with help appreciated in advance. 2. Bipolar disorder; on escitalopram, fluoxetine, bupropion, alprazolam nightly and as needed hydroxyzine 3 times daily complicating #1 - Maintain home regimen. 3. Essential hypertension; on amlodipine and lisinopril compounding #1 & #2 - Continue home regimen as previous plus give as needed IV hydralazine for systolic blood pressure greater than 160 mmHg. 4. Obesity; with a BMI of 32.6 this admission plus MONICA adding to the burden of disease outlined in #1 - #3 - Weight loss will be recommended. Check TSH. This complicates his case and may hamper recovery 5. History of tobacco abuse; with subsequent COPD - Tobacco Cessation will be strongly encouraged with Nicotine patch offered to control cravings. 6. History of admission here from July 12, 2018 to July 14, 2018 for treatment of acute alcohol withdrawal with patient subsequently transition to [facility] in [place], [place] for long-term rehabilitation - Noted. 7. Hypothyroidism; on levothyroxine - Resume levothyroxine as before and check TSH. 8. History of RA - Stable with no evidence of acute flare. 9. History of renal calculi - Noted with no evidence of recurrence at this time. 10. RLS - Stable. 11. History of umbilical hernia; s/p repair - Noted. 12. DVT prophylaxis - Lovenox 40 mg q daily. Total time: Approximately (but not less than) 75 minutes. Charges/Coding Visit Charges Inpatient E&M: 69244 Init Hosp L3
--- NOTE | 2024-08-21 03:29 | EX.ED.DYSGE1 ---
HPI History of Present Illness Chief Complaint: Substance Abuse Informant: patient and spouse/S.O. Narrative Narrative: Patient is a 54-year-old male with past medical history of hypertension as well as bipolar disorder. He also reports a longstanding history of alcohol abuse/use. 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 He states he has been in rehab before but the most recent placement was in 2016. He states that his last drink was at 8 AM on August 20. He denies any known history of cirrhosis. However this time he states he wishes to try and get sober once again and therefore comes in for evaluation. He admits alcohol use but states he does not use any other illicit substance. He also denies any progression to delirium tremens/seizures with his previous times in rehab [facility] Medical History (Updated 08/21/24 @ 06:[address] Jay Crocker, DO) Umbilical hernia Restless legs High cholesterol Substance abuse Alcohol abuse Bipolar disorder Anxiety Depression Hypothyroidism Diabetes Rheumatoid arthritis Kidney stones Smoker Sleep apnea COPD (chronic obstructive pulmonary disease) Irregular heart beat Chest pain Hypertension Home Medications ?Medication ?Instructions ?Recorded ?Last Taken ?Type alprazolam 0.5 mg tablet 0.5 mg PO QHS anxiety 08/21/24 Unknown History amlodipine 10 mg tablet 10 mg PO DAILY bp 08/21/24 Unknown History bupropion HCl 150 mg 24 hr tablet, 150 mg PO DAILY depression 08/21/24 Unknown History extended release escitalopram oxalate 20 mg tablet 20 mg PO DAILY mood 08/21/24 Unknown History fluoxetine 20 mg capsule 20 mg PO DAILY mood 08/21/24 Unknown History hydroxyzine HCl 25 mg tablet 25 mg PO TID PRN PRN anxiety 08/21/24 Unknown History levothyroxine 50 mcg tablet 50 mcg PO DAILY thyroid 08/21/24 Unknown History lisinopril 10 mg tablet 10 mg PO DAILY bp 08/21/24 Unknown History Allergy/AdvReac Type Severity Reaction Status Date / Time No Known Allergies Allergy Verified 08/21/24 00:07 Social History (System 08/08/18 @ 14:59 by Yoselyn Winchester) Smoking Status: Heavy Smoker (>10/day) ROS ROS ED Constitutional Constitutional ED: Denies chills or fever(s) Eyes Eyes: Denies blurry vision or change in vision ENT ENT ED: Denies sore throat Cardiovascular Cardiovascular: Denies chest pain, palpitations or racing heartbeat Respiratory/Chest Respiratory/Chest: Denies cough or dyspnea Gastrointestinal Gastrointestinal: Denies abdominal pain, diarrhea, nausea or vomiting Genitourinary Genitourinary ED: Denies dysuria Musculoskeletal Musculoskeletal: Denies myalgias Integumentary Denies rash Neurologic Neurologic: Denies headache(s) Psychiatric Psychiatric: Denies suicidal ideation or suicidal thoughts Hematologic/Lymphatic Hematologic/Lymphatic: Denies easy bleeding or easy bruising EXAM Physical Exam Const Vital Signs: 08/21/24 00:05 08/21/24 02:05 08/21/24 03:37 Temperature 98 F 98 F Temperature Source Oral Pulse Rate 81 89 78 Respiratory Rate 16 16 16 Blood Pressure 136/90 H 145/70 H 133/73 H Blood Pressure Mean 105 95 93 Pulse Ox 97 98 95 Oxygen Delivery Method Room Air Room Air Positive well nourished, well developed and obese General Appearance ED: well developed Nutritional Appearance: obese HEENT HEENT Narrative: Normocephalic atraumatic Eyes PERRL and EOMs intact bilaterally Eyes Narrative: Faint scleral icterus is noted Neck supple and no JVD Resp normal respiratory effort and clear to auscultation bilaterally Cardio regular rate and regular rhythm GI non-tender and no masses GI Narrative: Abdomen is soft with slight distention. There is no pain with palpation. Bowel sounds are normal active. There is faint fluid wave noted concerning for abdominal ascites. No peritoneal signs. No rigidity. No pulsatile mass Auscultation: normoactive bowel sounds Palpation: soft Extremity Extremity Narrative: There is +1 pitting edema to the bilateral lower extremities that is equal and symmetric Negative Homans' sign bilaterally Neuro oriented x3, CN's II-XII intact bilaterally and no sensory deficits noted Neuro Narrative: Patient does have faint tremors of bilateral hands Sensorium / Orientation: alert Motor Exam: strength 5/5 throughout Psych mental status grossly normal Psych Narrative: No homicidal or suicidal ideation Skin no rashes or lesions noted General Skin Exam: Negative for jaundice MDM MDM MDM Narrative Medical decision making narrative: Patient arrived to the ER with stable vitals. He reported approximate 24 hours from his last drink. At this time with the large amount of alcohol he ingested over a prolonged period there is high likelihood for progression to delirium tremens/seizure disorder if he continues without alcohol for another 24 to 48 hours. Secondary to this he was given 130 mg of IV phenobarbital to prevent this. In order to ensure he does not have acute kidney injury severe electrolyte abnormality or acute blood loss anemia from the chronic alcohol use basic blood work was obtained. Labs revealed no clinically significant findings. At this time his CIWA score is low but as he is high likelihood to progress to a critical value if left untreated I do not feel that outpatient therapy is his safest option. Therefore the case was discussed with the hospitalist who agrees to accept the patient for continued care History & Record Review Discussion w/independent historian: Patient and Significant other Lab Data Attestation: I reviewed the patient's lab results. Labs: Laboratory Results - last 24 hr 08/21/24 08/21/24 01:05 01:15 WBC 7.6 RBC 3.87 L Hgb 12.7 L Hct 37.4 L MCV 96.6 H MCH 32.8 H MCHC 34.0 RDW Std Deviation 51.8 H RDW Coeff of Debbie 14.6 Plt Count 262 MPV 8.6 Immature Gran % (Auto) 0.800 Neut % (Auto) 66.5 Lymph % (Auto) 22.9 [place] % (Auto) 7.2 Eos % (Auto) 2.1 Baso % (Auto) 0.5 Absolute Neuts (auto) 5.1 Absolute Lymphs (auto) 1.75 Nucleated RBC % 0.3 Sodium 135 Potassium 4.4 Chloride 100 Carbon Dioxide 22.2 Anion Gap 13 BUN 25 H Creatinine 1.53 H Estim Creat Clear Calc 60.98 Est GFR (MDRD) Non-Af 53 L BUN/Creatinine Ratio 16.3 Glucose 94 Calcium 9.1 Magnesium 2.0 Total Bilirubin 0.35 AST 20 ALT 8 Alkaline Phosphatase 87 Total Protein 7.5 Albumin 4.3 Globulin 3.3 Albumin/Globulin Ratio 1.3 Urine Opiates Screen NEGATIVE U Buprenorphine Qual NEGATIVE Ur Oxycodone Screen NEGATIVE Urine Methadone Screen NEGATIVE Urine Fentanyl Screen NEGATIVE Ur Barbiturates Screen NEGATIVE Ur Phencyclidine Scrn NEGATIVE Ur Amphetamines Screen NEGATIVE U Benzodiazepines Scrn PRESUMPTIVE POSITIVE Urine Cocaine Screen NEGATIVE U Cannabinoids Screen NEGATIVE Ethyl Alcohol < 10.1 Management Discussion w/another healthcare provider: Hospitalist Discharge Plan Dx/Rx/DC Orders Clinical Impression: Alcohol withdrawal, Essential (primary) hypertension, Alcohol dependence, Desire for detoxification, Bipolar disorder Disposition Disposition: Acute Care Hospital [facility] Discharge Date/Time: 08/21/24 04:02
[2024-08-21] MEDS: 0.9% Saline Lock 10 ML Syringe IV ×4 (04:36→21:10)
[2024-08-21] MEDS: 0.9% Normal Saline (1000mL) 1,000 ML 100 ML IV (04:36)
--- NOTE | 2024-08-21 05:00 | US_ITS ---
PROCEDURE: ABDOMEN COMPLETE 08/21/2024 REASON FOR EXAM: NEW-ONSET CIRRHOSIS. TECHNIQUE: Complete abdominal ultrasound jones-scale images with color doppler. PATIENT PREPARATION: Per protocol COMPARISON: No relevant prior. FINDINGS: Liver: Mild hepatomegaly at 19.1 cm in length. Hyperechogenic parenchyma. Homogeneous texture. Gallbladder: Unremarkable. Common bile duct: 0.56 cm in diameter. No ductal dilatation.. Pancreas: Normal. No ductal dilatation. Kidneys: The right kidney measures 11.2 x 5.3 x 5.7 cm. Right renal cortex measures 1.5 cm. The left kidney measures 11.2 x 5.4 x 5.5 cm.. Left renal cortex measures 1.0 cm. Left renal cyst measuring 3.2 x 3.2 x 3.0 cm. No calcifications. Spleen: 8.5 x 3.6 x 3.7 cm. No masses or other abnormalities.. Portal blood flow: Hepatopetal. Aorta: The proximal and distal aorta were not visualized. Mid abdominal aorta measures 1.5 cm in diameter. IVC: Unremarkable. Peritoneal Findings: Unremarkable. US/Abdomen Complete IMPRESSION: Mild hepatomegaly. Steatosis. Left renal cyst. Suboptimal evaluation of the aorta due to superimposed bowel-gas. Reading Location: [place] [id number]
[2024-08-21] MEDS: Phenobarbital 32.4 MG Tablet 64.8 MG PO ×4 (05:05→21:11)
[2024-08-21] MEDS: Levothyroxine 50 MCG Tablet PO (05:06)
--- NOTE | 2024-08-21 08:27 | PN.HOSP_ITS ---
Reason for Visit Reason for Visit: Acute alcohol withdrawal Subjective Subjective Mr. Cabrera is a 54-year-old white male who presents emergency department at [facility] early on the morning of 08/22/2023 with a chief complaint of alcohol withdrawal. On presentation he admitted to drinking 1/5 of vodka daily plus multiple screwdrivers. He was admitted here from July 12 through July 14, 2018 and transitioned to [facility] in [facility] for long-term rehabilitation. Clearly, since then he has relapsed. Patient reported he took his also alcohol drink on the morning of 08/20/2024 and had a gradual onset of tremors with heightened anxiety so he decided he wanted to come in for evaluation and treatment. He also complained of increasing abdominal distention that was new and had no previous diagnosis of cirrhosis. Vital signs on presentation showed a temperature of 98, heart rate 81, blood pressure 136/90 and pulse ox was 97% room air. CBC on presentation showed mild anemia with a hemoglobin of 12.7. This is macrocytic in nature. Platelet count was normal. Coags are pending. Chemistry panel showed elevated serum creatinine 1.53 but was otherwise unremarkable. Liver functions were normal. Liver functions were normal. Toxicology was presumptive positive for benzodiazepines and alcohol level was less than 10. Ultrasound of the abdomen was ordered and pending due to patient's complaint of abdominal swelling. Objective Data Objective Data Vital Signs: Vital Signs Temp Pulse Resp BP Pulse Ox O2 Del Method 98.2 F 68 18 123/69 H 94 Room Air 08/21/24 04:27 08/21/24 04:27 08/21/24 04:27 08/21/24 04:27 08/21/24 04:27 08/21/24 04:48 Oxygen Delivery Method Room Air Weight: 96.1 kg Body Mass Index (BMI) 32.2 Intake & Output: Intake and Output for Last 24 Hours 08/19/24 08/20/24 08/21/24 23:59 23:59 23:59 Intake Total 200 / 200 Balance 200 / 200 Lab / Micro Data 08/21/24 01:05 08/21/24 01:05 Labs: Laboratory Results - last 24 hr 08/21/24 01:05: WBC 7.6, RBC 3.87 L, Hgb 12.7 L, Hct 37.4 L, MCV 96.6 H, MCH 32.8 H, MCHC 34.0, RDW Std Deviation 51.8 H, RDW Coeff of Debbie 14.6, Plt Count 262, MPV 8.6, Immature Gran % (Auto) 0.800, Neut % (Auto) 66.5, Lymph % (Auto) 22.9, [place] % (Auto) 7.2, Eos % (Auto) 2.1, Baso % (Auto) 0.5, Absolute Neuts (auto) 5.1, Absolute Lymphs (auto) 1.75, Nucleated RBC % 0.3, Sodium 135, Potassium 4.4, Chloride 100, Carbon Dioxide 22.2, Anion Gap 13, BUN 25 H, C reatinine 1.53 H, Estim Creat Clear Calc 60.98, Est GFR (MDRD) Non-Af 53 L, BUN/Creatinine Ratio 16.3, Glucose 94, Calcium 9.1, Magnesium 2.0, Total Bilirubin 0.35, AST 20, ALT 8, Alkaline Phosphatase 87, Total Protein 7.5, Albumin 4.3, Globulin 3.3, Albumin/Globulin Ratio 1.3, Ethyl Alcohol < 10.1 08/21/24 01:15: Urine Opiates Screen NEGATIVE, U Buprenorphine Qual NEGATIVE, Ur Oxycodone Screen NEGATIVE, Urine Methadone Screen NEGATIVE, Urine Fentanyl Screen NEGATIVE, Ur Barbiturates Screen NEGATIVE, Ur Phencyclidine Scrn NEGATIVE, Ur Amphetamines Screen NEGATIVE, U Benzodiazepines Scrn PRESUMPTIVE POSITIVE, Urine Cocaine Screen NEGATIVE, U Cannabinoids Screen NEGATIVE Assessment & Plan Assessment/Plan (1) Alcohol withdrawal: (2) Alcohol dependence: (3) Abdominal distention, non-gaseous: PLAN: Plan Acute alcohol withdrawal -LFTs are within normal limits -Patient is drinking about 1/5 of vodka daily plus multiple mixed drinks -Phenobarbital taper as ordered -Supportive medications as needed -180 consultation pending Abdominal Swelling -Hold on GI consultation for now--> no acute need for GI and if patient is cirrhotic we will treat appropriately and make outpatient referral unless something acute changes -Ultrasound is pending -Coags are pending -LFTs are normal -Patient has mild macrocytic anemia but normal platelet count Macrocytic anemia -Suspect chronic -Hemoglobin appears to be close to baseline -Monitor as needed Elevated serum creatinine -Baseline is unknown -Will repeat in a.m. to reassess Bipolar disorder -Continue escitalopram -Continue fluoxetine -Continue Wellbutrin -Continue as needed hydroxyzine Essential hypertension -Continue home amlodipine -Continue home lisinopril -Continue as needed Xanax but would recommend using sparingly -As needed hydralazine available for systolic pressures greater than 160 Hypothyroidism -Continue home levothyroxine -TSH is just slightly elevated but suspect euthyroid sick syndrome Tobacco abuse -Patient still smoking but recommend cessation strongly -Nicotine patch available Obesity -BMI is 32.2 -Recommend weight loss -Complicates treatment, prognosis, outcomes CODE STATUS -Full code
[2024-08-21 08:51] LABS: Phosphorus 3.2 mg/dL (2.7-4.5)
[2024-08-21 09:05] LABS: Prothrombin Time (Protime)PT. 13.5 SECONDS (11.7-14.9)
[2024-08-21] MEDS: Enoxaparin 40 MG/0.4 ML Syringe SC (10:46)
--- NOTE | 2024-08-21 12:11 | ADDICTION ---
This property underwriter met with PT to conduct ASAM, MSE, AUDIT, DUDIT assessments and to plan for d/c. PT A+Ox4 and participated actively. All assessments completed. PT plans to f/u with [facility] for follow-up outpatient treatment services. Pt reports he does not have a need for transportation post discharge.
--- NOTE | 2024-08-21 12:34 | ADDICTION ---
Pt was screened and assessed for the Vivitrol shot. He meets criteria and would like it administered before discharge. He will have follow up injections at [facility].
[2024-08-21] MEDS: buPROPion (XL) 150 MG TABLET.XL PO (14:51)
[2024-08-21] MEDS: amLODIPine 10 MG Tablet PO (14:51)
[2024-08-21] MEDS: Folic Acid 1 MG Tablet PO (14:52)
[2024-08-21] MEDS: Escitalopram Oxalate 20 MG Tablet PO (14:52)
[2024-08-21] MEDS: FLUoxetine 20 MG Capsule PO (14:52)
[2024-08-21] MEDS: Thiamine Hydrochloride 100 MG Tablet PO (14:52)
[2024-08-21] MEDS: Lisinopril 10 MG Tablet PO (14:52)
[2024-08-21] MEDS: Glucerna Shake 120 ML LIQUID PO (14:57)
[2024-08-21] MEDS: hydrOXYzine PAM 25 MG Capsule PO (18:41)
[2024-08-21] MEDS: MELATONIN 3 MG TABLET PO (21:11)
[2024-08-22 00:46] VITALS: BP 120/71; PULSE 65; RESP 18; TEMP 36.3; O2SAT 94
[2024-08-22] MEDS: Phenobarbital 32.4 MG Tablet 64.8 MG PO ×6 (00:48→20:41)
[2024-08-22 04:53] VITALS: BP 122/80; PULSE 73; RESP 18; TEMP 36.6; O2SAT 95
[2024-08-22] MEDS: hydrOXYzine PAM 25 MG Capsule PO (04:54)
[2024-08-22] MEDS: Levothyroxine 50 MCG Tablet PO (04:54)
[2024-08-22 06:00] VITALS: BMI 32.1
--- NOTE | 2024-08-22 07:27 | PN.HOSP_ITS ---
Reason for Visit Reason for Visit: EtOH withdrawl Subjective Subjective No reported issues overnight. Pt sleeping at the time of my evaluation. Objective Data Objective Data Vital Signs: Vital Signs Temp Pulse Resp BP Pulse Ox O2 Del Method 97.9 F 73 18 122/80 H 95 Room Air 08/22/24 04:53 08/22/24 04:53 08/22/24 04:53 08/22/24 04:53 08/22/24 04:53 08/22/24 04:53 Oxygen Delivery Method Room Air Weight: 96.1 kg Body Mass Index (BMI) 32.1 Intake & Output: Intake and Output for Last 24 Hours 08/20/24 08/21/24 08/22/24 23:59 23:59 23:59 Intake Total 2100 / 2100 200 / 200 Output Total 1800 / 1800 700 / 700 Balance 300 / 300 -500 / -500 Lab / Micro Data 08/22/24 06:58 08/22/24 06:58 Labs: Laboratory Results - last 24 hr 08/21/24 07:41: PT 13.5, INR 1.0, Phosphorus 3.2, TSH 5.180 H Physical Exam Const no apparent distress and well nourished Constitutional Narrative: Obese middle aged white male lying in bed, sleeping, appears comfortable HEENT head/scalp atraumatic Head and Scalp: normocephalic Resp normal respiratory effort, no retractions, no use of accessory muscles and clear to auscultation bilaterally Resp Narrative: diminished but clear Auscultation: Negative for rales, rhonchi or wheezes Cardio regular rate, regular rhythm, S1 normal heart sound, S2 normal heart sound, no murmurs, no rub, no gallops and no clicks GI normal to inspection, nondistended, normoactive bowel sounds, soft to palpation and non-tender GI Narrative: no fluid wave Extremity no clubbing, cyanosis or edema Extremity Narrative: 2+ pedal pulses Neuro Neuro Narrative: sleeping Psych Psych Narrative: sleeping Assessment & Plan Assessment/Plan (1) Desire for detoxification: (2) Alcohol dependence: QUALIFIERS: Substance use status: in withdrawal Complication of substance-induced condition: uncomplicated Qualified Code(s): F10.230 - Alcohol dependence with withdrawal, uncomplicated (3) Alcohol withdrawal: QUALIFIERS: Complication of substance-induced condition: u ncomplicated Qualified Code(s): F10.930 - Alcohol use, unspecified with withdrawal, uncomplicated PLAN: Plan Acute alcohol withdrawal -LFTs are within normal limits -Patient is drinking about 1/5 of vodka daily plus multiple mixed drinks -Phenobarbital taper as ordered -Supportive medications as needed -180 consultation following and plan is Vivitrol at d/c with f/u at a new day Abdominal Swelling -not cirrhosis -US shows mild hepatomegaly and steatosis -suspect weight gain Macrocytic anemia -Suspect chronic -hgb remains stable -Monitor as needed Elevated serum creatinine -resolved Bipolar disorder -Continue escitalopram -Continue fluoxetine -Continue Wellbutrin -Continue as needed Xanax but would recommend using sparingly -Continue as needed hydroxyzine Essential hypertension -BP control is good -Continue home amlodipine -Continue home lisinopril -As needed hydralazine available for systolic pressures greater than 160 Hypothyroidism -Continue home levothyroxine -TSH is just slightly elevated but suspect euthyroid sick syndrome--> outpt f/u Tobacco abuse -Patient still smoking but recommend cessation strongly -Nicotine patch available Obesity -BMI is 32.2 -Recommend weight loss -Complicates treatment, prognosis, outcomes CODE STATUS -Full code Charges/Coding Visit Charges Inpatient E&M: 60526 Subs Hosp L2
[2024-08-22 07:41] LABS: Absolute Lymphocyte Count 1.91 X10^3/uL (0.83-4.51); Absolute Neutrophil Count 3.2 X10^3/uL (2.0-7.7); Basophil# 0.04 X10^3/uL; Basophil% 0.7 % (0-1); Eosinophil# 0.16 X10^3/uL; Eosinophils% 2.7 % (0-5); Hematocrit 35.4 % (40-54); Lymphocyte # 1.91 X10^3/ul (0.83-4.51); Lymphocyte % 32.6 % (19-41); Mean Corp Hgb Conc 33.9 g/dL (32-36); Mean Corpuscular Hgb 32.8 pg (27.0-32.0); Mean Corpuscular Volume 96.7 fL (80-94); Mean Platelet Vol. 8.9 fl (6.2-12.0); Monocyte# 0.55 X10^3/uL; Monocyte% 9.4 % (0-10); NRBC Flagged by Analyzer 0 % (0-5); Neutrophil # 3.15 X10^3/uL (2.7-7.7); Neutrophil % 53.7 % (47-70); Platelet Count 232 K/mm3 (150-450); RBC Distribution Width CV 14.4 % (11.6-14.6); RBC Distribution Width SD 51.2 fl (35.1-43.9); Red Blood Count 3.66 M/mm3 (4.6-6.2); White Blood Count 5.9 K/mm3 (4.4-11.0)
[2024-08-22 08:11] LABS: Magnesium 2.1 mg/dL (1.5-2.2)
[2024-08-22 08:30] LABS: AST(SGOT) 19 U/L (<=37); Alanine Aminotransfer ALT/SGPT 6 U/L (<=46); Albumin, Serum 3.4 g/dL (3.5-5.0); Alkaline Phosphatase 72 U/L (40-129); Anion Gap 11 (5-15); BUN 16 mg/dL (4-19); BUN/Creat Ratio 13.5 RATIO (10-20); Calcium,Total 8.4 mg/dL (7.6-11.0); Chloride 100 mmol/L (98-108); Creatinine, Serum 1.17 mg/dL (0.70-1.20); EST Glomerular Filtration Rate 73 (>60); Estimated Creatinine Clearance 79.25 ml/min (50-250); Globulin 3.3 g/dL (2.2-4.2); Glucose 82 mg/dL (70-99); Potassium 4.4 mmol/L (3.3-5.1); Protein, Total 6.8 g/dL (5.9-8.4); Sodium Level 132 mmol/L (133-145); Total Bilirubin < 0.15 mg/dL (0.00-1.30)
[2024-08-22 09:08] VITALS: BP 97/63; PULSE 72; RESP 18; TEMP 36.7; O2SAT 96
[2024-08-22] MEDS: Thiamine Hydrochloride 100 MG Tablet PO (09:17)
[2024-08-22] MEDS: Folic Acid 1 MG Tablet PO (09:17)
[2024-08-22] MEDS: Escitalopram Oxalate 20 MG Tablet PO (09:17)
[2024-08-22] MEDS: buPROPion (XL) 150 MG TABLET.XL PO (09:17)
[2024-08-22] MEDS: FLUoxetine 20 MG Capsule PO (09:18)
[2024-08-22] MEDS: Glucerna Shake 120 ML LIQUID PO ×2 (09:20→17:05)
[2024-08-22] MEDS: Enoxaparin 40 MG/0.4 ML Syringe SC (10:55)
[2024-08-22] MEDS: amLODIPine 10 MG Tablet PO (10:56)
[2024-08-22] MEDS: Lisinopril 10 MG Tablet PO (10:56)
[2024-08-22 10:59] VITALS: BP 110/72; PULSE 70; RESP 18; O2SAT 92
[2024-08-22 16:52] VITALS: BP 121/68; PULSE 67; RESP 16; TEMP 36.5; O2SAT 97
[2024-08-22 20:40] VITALS: BP 107/70; PULSE 71; RESP 16; TEMP 36.7; O2SAT 97
[2024-08-22] MEDS: MELATONIN 3 MG TABLET PO (20:41)
[2024-08-22] MEDS: 0.9% Saline Lock 10 ML Syringe IV (20:41)
[2024-08-22 21:28] LABS: Phosphorus 3.2 mg/dL (2.7-4.5)
[2024-08-23] MEDS: Phenobarbital 32.4 MG Tablet 64.8 MG PO ×5 (01:26→18:36)
[2024-08-23 04:29] VITALS: BMI 32.4
[2024-08-23 05:10] VITALS: BP 109/68; PULSE 61; RESP 18; TEMP 36.6; O2SAT 99
[2024-08-23] MEDS: Levothyroxine 50 MCG Tablet PO (05:13)
[2024-08-23] MEDS: hydrOXYzine PAM 25 MG Capsule PO (05:13)
[2024-08-23 08:42] VITALS: BP 128/84; PULSE 70; RESP 18; TEMP 36.6; O2SAT 94
[2024-08-23] MEDS: amLODIPine 10 MG Tablet PO (08:46)
[2024-08-23] MEDS: Thiamine Hydrochloride 100 MG Tablet PO (08:47)
[2024-08-23] MEDS: Enoxaparin 40 MG/0.4 ML Syringe SC (08:47)
[2024-08-23] MEDS: FLUoxetine 20 MG Capsule PO (08:48)
[2024-08-23] MEDS: Escitalopram Oxalate 20 MG Tablet PO (08:48)
[2024-08-23] MEDS: Folic Acid 1 MG Tablet PO (08:48)
[2024-08-23] MEDS: buPROPion (XL) 150 MG TABLET.XL PO (08:48)
[2024-08-23 08:52] VITALS: PULSE 70
[2024-08-23 11:12] VITALS: BP 121/80; PULSE 66
--- NOTE | 2024-08-23 11:23 | NURSING ---
Nickie Collins notified pt will not be discharged today, she was very understanding.
--- NOTE | 2024-08-23 13:54 | PN.HOSP_ITS ---
Reason for Visit Reason for Visit: Acute alcohol withdrawal Subjective Subjective Patient states overall he is feeling much better. CIWA is still 5. Continues on phenobarbital taper. Patient is agreeable to get Vivitrol and follow-up at a new date at the time of discharge. We discussed that he would likely be ready tomorrow. Objective Data Objective Data Vital Signs: Vital Signs Temp Pulse Resp BP Pulse Ox O2 Del Method 97.9 F 66 18 121/80 H 94 Room Air 08/23/24 08:42 08/23/24 11:12 08/23/24 08:42 08/23/24 11:12 08/23/24 08:42 08/23/24 08:42 Oxygen Delivery Method Room Air Weight: 97.2 kg Body Mass Index (BMI) 32.4 Intake & Output: Intake and Output for Last 24 Hours 08/21/24 08/22/24 08/23/24 23:59 23:59 23:59 Intake Total 2100 / 2100 1600 / 1600 300 / 300 Output Total 1800 / 1800 1100 / 1100 Balance 300 / 300 500 / 500 300 / 300 Lab / Micro Data 08/22/24 06:58 08/22/24 06:58 Labs: Laboratory Results - last 24 hr 08/22/24 06:58: Phosphorus 3.2 Physical Exam Const alert, oriented x3, no apparent distress and well nourished; Negative for average body habitus or healthy appearing Constitutional Narrative: Obese middle aged white male sitting up in bed watching television, appears comfortable and nontoxic General Appearance: cooperative Resp Resp Narrative: diminished but clear GI GI Narrative: no fluid wave Extremity Extremity Narrative: 2+ pedal pulses Skin Skin Narrative: Patient has no evidence of rash, abscess, wounds or jaundice. Psych affect normal Psych Narrative: Eye contact is good and patient interacts appropriately Assessment & Plan Assessment/Plan (1) Desire for detoxification: (2) Alcohol dependence: QUALIFIERS: Substance use status: in withdrawal Complication of substance-induced condition: uncomplicated Qualified Code(s): F10.230 - Alcohol dependence with withdrawal, uncomplicated (3) Alcohol withdrawal: QUALIFIERS: Complication of substance-induced condition: u ncomplicated Qualified Code(s): F10.930 - Alcohol use, unspecified with withdrawal, uncomplicated PLAN: Plan Acute alcohol withdrawal -LFTs are within normal limits -Patient is drinking about 1/5 of vodka daily plus multiple mixed drinks -Phenobarbital taper as ordered -KEO is currently about 5 -Vistaril ordered for a.m. his discharge is likely tomorrow -Supportive medications as needed -180 consultation following and plan is Vivitrol at d/c with f/u at a new day Abdominal Swelling -not cirrhosis -US shows mild hepatomegaly and steatosis -suspect weight gain -No further workup required at this time Macrocytic anemia -Suspect chronic -hgb remains stable -Monitor as needed Elevated serum creatinine -resolved Bipolar disorder -Continue escitalopram -Continue fluoxetine -Continue Wellbutrin -Continue as needed Xanax but would recommend using sparingly -Continue as needed hydroxyzine Essential hypertension -BP control is good -Continue home amlodipine -Continue home lisinopril -As needed hydralazine available for systolic pressures greater than 160 Hypothyroidism -Continue home levothyroxine -TSH is just slightly elevated but suspect euthyroid sick syndrome--> outpt f/u Tobacco abuse -Patient still smoking but recommend cessation strongly -Nicotine patch available Obesity -BMI is 32.6 -Recommend weight loss -Complicates treatment, prognosis, outcomes CODE STATUS -Full code Charges/Coding Visit Charges Inpatient E&M: 11271 Subs Hosp L1
[2024-08-23 15:48] VITALS: BP 117/80; PULSE 61; RESP 18; TEMP 36.7; O2SAT 95
[2024-08-23] MEDS: Lisinopril 10 MG Tablet PO (15:57)
[2024-08-23 20:24] VITALS: BP 124/88; PULSE 66; RESP 14; TEMP 36.8; O2SAT 93
[2024-08-24 00:24] VITALS: BP 124/87; PULSE 70; RESP 16; TEMP 36.8; O2SAT 95
[2024-08-24] MEDS: Phenobarbital 32.4 MG Tablet 64.8 MG PO ×2 (00:40→06:25)
[2024-08-24] MEDS: MELATONIN 3 MG TABLET PO (00:40)
[2024-08-24] MEDS: hydrOXYzine PAM 25 MG Capsule PO (00:40)
[2024-08-24 03:23] VITALS: BMI 32.3
[2024-08-24] MEDS: Levothyroxine 50 MCG Tablet PO (06:25)
[2024-08-24 06:42] VITALS: BP 119/74; PULSE 59; RESP 16; TEMP 36.4; O2SAT 96
[2024-08-24] MEDS: Thiamine Hydrochloride 100 MG Tablet PO (07:58)
[2024-08-24] MEDS: Escitalopram Oxalate 20 MG Tablet PO (07:58)
[2024-08-24] MEDS: buPROPion (XL) 150 MG TABLET.XL PO (07:58)
[2024-08-24] MEDS: amLODIPine 10 MG Tablet PO (07:58)
[2024-08-24] MEDS: FLUoxetine 20 MG Capsule PO (07:58)
[2024-08-24] MEDS: Folic Acid 1 MG Tablet PO (07:58)
[2024-08-24] MEDS: Enoxaparin 40 MG/0.4 ML Syringe SC (07:59)
[2024-08-24] MEDS: Lisinopril 10 MG Tablet PO (11:15)
[2024-08-24 11:17] VITALS: BP 115/71; PULSE 62; RESP 18; TEMP 36.7; O2SAT 97
[2024-08-24] MEDS: Naltrexone Microspheres 380 MG SYRINGE IM (11:58)
[2024-08-24] MEDS: Vivitrol Administration Needles 1 EACH MC (11:59)
[2024-08-24] MEDS: Vivitrol ID Card 1 EACH MC (12:00)
--- NOTE | 2024-08-24 12:02 | PCM.DC.SUM ---
Providers Date of Admission: 08/21/24 Date of Discharge: 08/24/24 Primary Care Physician: Iris Potter MD Reason For Visit: ACUTE ETOH WITHDRAWAL Diagnosis Discharge Diagnosis (1) Desire for detoxification: Status: Acute (2) Alcohol dependence: Status: Chronic Code(s): F10.20 - Alcohol dependence, uncomplicated Qualifiers: Complication of substance-induced condition: uncomplicated Substance use status: in withdrawal Qualified Code(s): F10.230 - Alcohol dependence with withdrawal, uncomplicated (3) Alcohol withdrawal: Status: Acute Code(s): F10.239 - Alcohol dependence with withdrawal, unspecified Qualifiers: Complication of substance-induced condition: uncomplicated Qualified Code(s): F10.930 - Alcohol use, unspecified with withdrawal, uncomplicated Medications at Discharge Home Medications alprazolam 0.5 mg tablet 0.5 mg PO QHS anxiety 08/21/24 amlodipine 10 mg tablet 10 mg PO DAILY bp 08/21/24 bupropion HCl 150 mg 24 hr tablet, extended release 150 mg PO DAILY depression 08/21/24 escitalopram oxalate 20 mg tablet 20 mg PO DAILY mood 08/21/24 fluoxetine 20 mg capsule 20 mg PO DAILY mood 08/21/24 hydroxyzine HCl 25 mg tablet 25 mg PO TID PRN PRN anxiety 08/21/24 levothyroxine 50 mcg tablet 50 mcg PO DAILY thyroid 08/21/24 lisinopril 10 mg tablet 10 mg PO DAILY bp 08/21/24 Hospital Course Summary of Care Provided Minutes Spent on Discharge: 22 Hospital Course: Mr. Cabrera is a 54-year-old white male who presents emergency department at [facility] early on the morning of 08/22/2023 with a chief complaint of alcohol withdrawal. On presentation he admitted to drinking 1/5 of vodka daily plus multiple screwdrivers. He was admitted here from July 12 through July 14, 2018 and transitioned to [facility] in [facility] for long-term rehabilitation. Clearly, since then he has relapsed. Patient reported he took his also alcohol drink on the morning of 08/20/2024 and had a gradual onset of tremors with heightened anxiety so he decided he wanted to come in for evaluation and treatment. He also complained of increasing abdominal distention that was new and had no previous diagnosis of cirrhosis. Vital signs on presentation showed a temperature of 98, heart rate 81, blood pressure 136/90 and pulse ox was 97% room air. CBC on presentation showed mild anemia with a hemoglobin of 12.7. This is macrocytic in nature. Platelet count was normal. Coags are pending. Chemistry panel showed elevated serum creatinine 1.53 but was otherwise unremarkable. Liver functions were normal. Liver functions were normal. Toxicology was presumptive positive for benzodiazepines and alcohol level was less than 10. Ultrasound the abdomen was unremarkable for any signs of cirrhosis and only showed some hepatosteatosis related to his alcohol use. He was placed on a phenobarbital taper with supportive medications for symptoms of withdrawal. He did fairly well and was seen by 180 during his hospitalization. He is to set up an appointment with a new day after discharge and was given Vivitrol on the day of discharge. The patient was discharged home with no medication changes other than the Vivitrol in stable condition and asked to call a new day after discharge to set up an appointment to be seen. Discharge diagnoses: Acute alcohol withdrawal Chronic alcohol abuse Macrocytic anemia Elevated serum creatinine-resolved Bipolar disorder Essential hypertension Hypothyroidism Tobacco abuse Obesity Physical Exam Const alert, oriented x3, no apparent distress, no limitations and well nourished; Negative for average body habitus or healthy appearing Constitutional Narrative: Obese middle aged white male sitting up in bed watching television, appears comfortable and nontoxic General Appearance: cooperative, comfortable, well kempt and well developed HEENT normocephalic, head/scalp atraumatic and moist oral mucous membranes Resp normal respiratory effort, no retractions, no use of accessory muscles and clear to auscultation bilaterally Resp Narrative: diminished but clear Auscultation: Negative for rales, rhonchi or wheezes Cardio regular rate, regular rhythm, S1 normal heart sound, S2 normal heart sound, no murmurs, no rub, no gallops and no clicks GI normal to inspection, nondistended, normoactive bowel sounds, soft to palpation and non-tender Extremity no clubbing, cyanosis or edema Extremity Narrative: 2+ pedal pulses Neuro oriented x3, moves all extremities and no focal motor deficits Neuro Narrative: sleeping Speech: speech normal Psych affect normal Psych Narrative: Eye contact is good and patient interacts appropriately Weight / BMI Weight Weight: 97 kg Body Mass Index (BMI) 32.3 ABG / Lab / Microbiology Data 08/22/24 06:58 08/22/24 06:58 D/C Instructions Discharge Diet: No restrictions Discharge Activity: Return to Normal Activity Return to work on: 08/25/24 DC O2, CPAP, BIPAP Needs Home O2 Discharge instructions: No Meaningful Use Info Meaningful Use Meaningful Use Diagnoses (Choose all that apply): None applicable Ischemic Stroke Statin Dosing Therapy Reference: STATIN DOSE THERAPY REFERENCE: * Patients > 75 years receive moderate or high dose statin therapy. * Patients 75 years or YOUNGER should receive HIGH intensity statin dose unless contraindicated. You will be required to document reason for non-treatment if statin daily dose does not meet guidelines. HIGH DOSE STATIN THERAPY DAILY Atorvastatin > than or = to 40 mg Rosuvastatin > than or = to 20 mg Amlodipine + Atorvastatin > than or = to 2.5/40 mg Ezetimibe + Simvastatin 10/80 mg Simvastatin 80mg Discharge Plan Admission Admit Date/Time: 08/21/24 03:45 Primary Reason for Your Visit: Alcohol detox Attending Provider: Eveline Bradford Primary Care Provider: Iris Potter Consulting Providers: Julito Jones Instructions Additional Instructions / Restrictions: 1. Please follow-up at a new day as instructed by addiction medicine Discharge Orders/Prescriptions Prescriptions: Continued alprazolam 0.5 mg tablet 0.5 mg PO QHS amlodipine 10 mg tablet 10 mg PO DAILY hydroxyzine HCl 25 mg tablet 25 mg PO TID PRN PRN (Reason: anxiety) escitalopram oxalate 20 mg tablet 20 mg PO DAILY bupropion HCl 150 mg tablet extended release 24 hr 150 mg PO DAILY fluoxetine 20 mg capsule 20 mg PO DAILY levothyroxine 50 mcg tablet 50 mcg PO DAILY lisinopril 10 mg tablet 10 mg PO DAILY Referrals / Follow Up: Iris Potter MD [Primary Care Provider] - In 1 Week Disposition Disposition (needs filled in before D/C Order can be placed): Home, Self Care Charges/Coding Visit Charges Inpatient E&M: 42865 Disch Hosp
== END 2024-08-24 12:29 | disposition home or self-care (01) | DRG 775 ==
LOC: ED 03:29 → MS3 03:56
PROVIDERS: Admitting Provider Internal Medicine; Emergency Provider Emergency Medicine; PCP Family Medicine; Visit Provider Internal Medicine
DX: F10.130 Alcohol abuse with withdrawal, uncomplicated (principal); F31.9 Bipolar disorder, unspecified; D53.9 Nutritional anemia, unspecified; E11.9 Type 2 diabetes mellitus without complications; E03.9 Hypothyroidism, unspecified; E07.81 Sick-euthyroid syndrome; J44.9 Chronic obstructive pulmonary disease, unspecified; I10 Essential (primary) hypertension; K76.0 Fatty (change of) liver, not elsewhere classified; E66.9 Obesity, unspecified; G47.33 Obstructive sleep apnea (adult) (pediatric); E78.00 Pure hypercholesterolemia, unspecified; F17.200 Nicotine dependence, unspecified, uncomplicated; K70.0 Alcoholic fatty liver; Y90.0 Blood alcohol level of less than 20 mg/100 ml; R79.89 Other specified abnormal findings of blood chemistry; Z68.32 Body mass index [BMI] 32.0-32.9, adult; Z79.890 Hormone replacement therapy; Z79.899 Other long term (current) drug therapy
CPT/HCPCS: 36415; 76700; 80053; 80307; 82077; 83735; 84100; 84443; 85025; 85610; 94668; 99284; 99406; A4216

== ENCOUNTER → 2024-08-24 | Outpatient (CLI) | payer MEDICAID, SELFPAY ==
--- NOTE | 2024-08-24 12:40 | RAD_ITS ---
EXAM: XR Lumbosacral Spine Flexion/Extension Only, 2 or 3 Views CLINICAL INDICATION: LOW BACK PAIN TECHNIQUE: Lateral flexion/extension views of the lumbar spine and sacrum. COMPARISON: No relevant prior studies available. FINDINGS: VERTEBRAE: Facet arthropathy of L5-S1. Normal sagittal alignment. No acute fracture. SACRUM/COCCYX: Unremarkable as visualized. No acute fracture. DISC SPACES: No acute findings. No significant narrowing. SOFT TISSUES: Unremarkable. RAD/L/S Spine Min 4 Views IMPRESSION: No acute fracture. Reading Location: [facility]
--- NOTE | 2024-08-24 12:40 | RAD_ITS ---
EXAM: XR Bilateral Hips With Pelvis When Performed, 2 Views CLINICAL INDICATION: PAIN TECHNIQUE: Frontal view of the bilateral hips with pelvis when performed. COMPARISON: No relevant prior studies available. FINDINGS: BONES/JOINTS: Unremarkable. No acute fracture. No dislocation. SOFT TISSUES: Unremarkable. RAD/Hips B/L min 2 views w/ Pelvis IMPRESSION: Normal bilateral hip x-ray. Reading [facility]
== END | disposition home or self-care (01) ==
LOC: RAD 12:34
PROVIDERS: PCP Family Medicine; Referring Provider Family Medicine; Visit Provider Family Medicine
DX: M54.50 Low back pain, unspecified (principal); M25.551 Pain in right hip; M25.552 Pain in left hip
CPT/HCPCS: 72110; 73521

== ENCOUNTER 2024-11-05 16:53 | Observation (INO) | payer MEDICAID, SELFPAY ==
[2024-11-05 16:53] VITALS: BP 116/71; PULSE 93; RESP 14; TEMP 36.6; O2SAT 98; BMI 31.2
--- NOTE | 2024-11-05 17:48 | EX.ED.SAOD ---
HPI History of Present Illness Chief Complaint: ETOH Intox Informant: patient Onset/Context/Timing Onset: Weeks (3) Context: Gradual Onset Timing: Continuous Worsened by: Nothing Relieved by: Nothing Associated Symptoms Associated Symptoms: Positive for tremor; Negative for vomiting*, diarrhea*, fever*, rash*, seizure, palpatations, change in mental status, trauma, suicidal ideation or homicidal ideation Narrative Narrative: Patient presents requesting detox from alcohol. Patient states he drinks a fifth of alcohol per day. Patient states his last drink was this morning. Patient states he went through detox approximately 2 months ago but started drinking again 3 weeks ago. Patient admits to some tremors. Patient denies any seizures. Patient denies any vomiting or diarrhea. Patient admits to some nausea and abdominal cramping. Patient denies any suicidal or homicidal ideations. [facility] Medical History Obesity (BMI 30.0-34.9) Bipolar disorder Alcohol dependence Tobacco dependence Alcohol dependence Essential (primary) hypertension Umbilical hernia Restless legs High cholesterol Substance abuse Alcohol abuse Bipolar disorder Anxiety Depression Hypothyroidism Diabetes Rheumatoid arthritis Kidney stones Smoker Sleep apnea COPD (chronic obstructive pulmonary disease) Irregular heart beat Chest pain Hypertension Home Medications ?Medication ?Instructions ?Recorded ?Last Taken ?Type amlodipine 10 mg tablet 10 mg PO DAILY bp 08/21/24 11/05/24 History bupropion HCl 150 mg 24 hr tablet, 150 mg PO DAILY depression 08/21/24 11/05/24 History extended release escitalopram oxalate 20 mg tablet 20 mg PO DAILY mood 08/21/24 11/05/24 History hydroxyzine HCl 25 mg tablet 25 mg PO TID PRN PRN anxiety 08/21/24 11/05/24 History lisinopril 10 mg tablet 10 mg PO DAILY bp 08/21/24 11/05/24 History cariprazine 1.5 mg capsule 1.5 mg PO DAILY 11/05/24 11/05/24 History (Vraylar) levothyroxine 75 mcg tablet 75 mcg PO DAILY 11/05/24 11/05/24 History lorazepam 1 mg tablet 1 mg PO BID 11/05/24 11/05/24 History Allergy/AdvReac Type Severity Reaction Status Date / Time No Known Allergies Allergy Verified 11/05/24 16:54 Social History (Updated 11/05/24 @ 17:[address] Armani Sosa, DO) Smoking Status: Heavy Smoker (>10/day) alcohol intake: current alcohol intake frequency: 3 or more drinks per day Alcohol type: hard liquor ROS ROS ED Constitutional Constitutional ED: Denies chills or fever(s) Eyes Eyes: Denies blurry vision or change in vision ENT ENT ED: Reports sore throat; Denies rhinorrhea Cardiovascular Cardiovascular: Denies chest pain or palpitations Respiratory/Chest Respiratory/Chest: Reports cough; Denies dyspnea Gastrointestinal Gastrointestinal: Reports abdominal pain and nausea; Denies vomiting Genitourinary Genitourinary ED: Denies dysuria or hematuria Musculoskeletal Musculoskeletal: Denies back pain or neck pain Integumentary Denies abscess or rash Neurologic Neurologic: Denies headache(s) or weakness Allergic/Immunologic Allergic/Immunologic ED: Denies mouth swelling or urticaria EXAM Physical Exam Const Vital Signs: 11/05/24 16:53 Temperature 98 F Temperature Source Temporal Pulse Rate 93 Respiratory Rate 14 Blood Pressure 116/71 Blood Pressure Mean 86 Pulse Ox 98 Oxygen Delivery Method Room Air Positive well nourished and well developed General Appearance ED: well developed and NAD HEENT Reports moist mucous membranes Neck supple and no JVD Chest Wall palpation of chest normal Resp normal respiratory effort and clear to auscultation bilaterally Cardio regular rate and regular rhythm GI soft to palpation, non-tender and non-distended Neuro oriented x3, CN's II-XII intact bilaterally and no sensory deficits noted Ragini Coma Scale: document GCS findings Spontaneous Obeys Commands Oriented 15 Sensorium / Orientation: alert Motor Exam: strength 5/5 throughout Psych mental status grossly normal and thought process normal MDM MDM MDM Narrative Medical decision making narrative: Medical screening labs will be obtained. CBC will be obtained to assess for leukocytosis and anemia. Comprehensive metabolic profile will be obtained to assess for hepatic function, renal function, and electrolyte abnormality. Lipase will be obtained to assess for pancreatitis. Serum alcohol level will be obtained to assess for alcohol intoxication. Urine drug screen will be obtained to assess for substance abuse. History & Record Review Additional record(s) reviewed:: Prior inpatient record, Prior ED visit and Prior labs Lab Data Attestation: I reviewed the patient's lab results. Lab results narrative: CBC reviewed. There is a mild anemia with hemoglobin of 12.5 and hematocrit of 37.0. Platelets were normal. Comprehensive metabolic profile was reviewed. BUN was 21 and creatinine was 1.55. This is consistent with previous results. Lipase was reviewed and was normal at 42. Serum alcohol level was reviewed and was slightly elevated at 47.9. Labs: Laboratory Results - last 24 hr 11/05/24 18:00 WBC 5.0 RBC 3.85 L Hgb 12.5 L Hct 37.0 L MCV 96.1 H MCH 32.5 H MCHC 33.8 RDW Std Deviation 53.1 H RDW Coeff of Debbie 15.2 H Plt Count 275 MPV 8.6 Immature Gran % (Auto) 1.600 H Neut % (Auto) 58.3 Lymph % (Auto) 28.4 Garfield % (Auto) 8.5 Eos % (Auto) 2.4 Baso % (Auto) 0.8 Absolute Neuts (auto) 2.9 Absolute Lymphs (auto) 1.43 Nucleated RBC % 0.6 Sodium 136 Potassium 4.9 Chloride 100 Carbon Dioxide 22.6 Anion Gap 13 BUN 21 H Creatinine 1.55 H Estim Creat Clear Calc 60.86 Est GFR (MDRD) Non-Af 52 L BUN/Creatinine Ratio 13.5 Glucose 92 Calcium 8.7 Total Bilirubin 0.20 AST 14 ALT 8 Alkaline Phosphatase 90 Total Protein 6.8 Albumin 4.0 Globulin 2.8 Albumin/Globulin Ratio 1.4 Lipase 42 Ethyl Alcohol 47.9 H Management Discussion w/another healthcare provider: Hospitalist Treatment and Re-Evaluation Narrative: Case was discussed with the hospitalist for admission. She will admit the patient to her service. Patient understood and was agreeable with plan. All questions were answered. Discharge Plan Triage Chief Complaint: ETOH Intox ED Provider: Armani Sosa Dx/Rx/DC Orders Clinical Impression: Alcohol withdrawal, Essential (primary) hypertension, Tobacco dependence Prescriptions: No Action amlodipine 10 mg tablet 10 mg PO DAILY hydroxyzine HCl 25 mg tablet 25 mg PO TID PRN PRN (Reason: anxiety) escitalopram oxalate 20 mg tablet 20 mg PO DAILY Patient Comments: states pt is taking 30mg bupropion HCl 150 mg tablet extended release 24 hr 150 mg PO DAILY lisinopril 10 mg tablet 10 mg PO DAILY levothyroxine 75 mcg tablet 75 mcg PO DAILY lorazepam 1 mg tablet 1 mg PO BID Vraylar 1.5 mg capsule 1.5 mg PO DAILY Primary Care Provider: Iris Potter Referrals: Iris Potter MD [Primary Care Provider] - Print Language: Irish Disposition Disposition: Acute Care Hospital [facility]
[2024-11-05 17:53] VITALS: BP 112/77; PULSE 91; RESP 18; O2SAT 99
[2024-11-05 18:06] LABS: Absolute Lymphocyte Count 1.43 X10^3/uL (0.83-4.51); Absolute Neutrophil Count 2.9 X10^3/uL (2.0-7.7); Basophil# 0.04 X10^3/uL; Basophil% 0.8 % (0-1); Eosinophil# 0.12 X10^3/uL; Eosinophils% 2.4 % (0-5); Hemoglobin 12.5 g/dL (13.0-16.5); Lymphocyte # 1.43 X10^3/ul (0.83-4.51); Lymphocyte % 28.4 % (19-41); Mean Corp Hgb Conc 33.8 g/dL (32-36); Mean Corpuscular Hgb 32.5 pg (27.0-32.0); Mean Corpuscular Volume 96.1 fL (80-94); Mean Platelet Vol. 8.6 fl (6.2-12.0); Monocyte# 0.43 X10^3/uL; Monocyte% 8.5 % (0-10); NRBC Flagged by Analyzer 0.6 % (0-5); Neutrophil # 2.93 X10^3/uL (2.7-7.7); Neutrophil % 58.3 % (47-70); Platelet Count 275 K/mm3 (150-450); RBC Distribution Width CV 15.2 % (11.6-14.6); RBC Distribution Width SD 53.1 fl (35.1-43.9); Red Blood Count 3.85 M/mm3 (4.6-6.2)
[2024-11-05 18:29] LABS: ALB/GLOB Ratio 1.4 RATIO (0.9-2.4); AST(SGOT) 14 U/L (<=37); Alanine Aminotransfer ALT/SGPT 8 U/L (<=46); Alcohol, Blood (Medical)-Serum 47.9 mg/dL (<=10.0); Alkaline Phosphatase 90 U/L (40-129); Anion Gap 13 (5-15); BUN 21 mg/dL (4-19); BUN/Creat Ratio 13.5 RATIO (10-20); Calcium,Total 8.7 mg/dL (7.6-11.0); Carbon Dioxide 22.6 mmol/L (21.0-32.0); Chloride 100 mmol/L (98-108); Creatinine, Serum 1.55 mg/dL (0.70-1.20); EST Glomerular Filtration Rate 52 (>60); Estimated Creatinine Clearance 60.86 ml/min (50-250); Globulin 2.8 g/dL (2.2-4.2); Glucose 92 mg/dL (70-99); Lipase 42 U/L (13-75); Potassium 4.9 mmol/L (3.3-5.1); Protein, Total 6.8 g/dL (5.9-8.4); Sodium Level 136 mmol/L (133-145)
[2024-11-05 18:45] VITALS: BP 112/77; PULSE 91; RESP 18; TEMP 36.4; O2SAT 99
--- NOTE | 2024-11-05 18:50 | PCM.HP.STD ---
HPI - General General Date of Admission: 11/05/24 Date of Service: 11/05/24 Chief Complaint: Requesting ETOH detox HPI Narrative CARROLL BUTTS, is a 54-year-old male history of alcohol and tobacco dependence, hypertension, hypothyroidism, depression and anxiety presented to [facility] ED 11/05/2024 requesting detox from alcohol. He states he drinks 1/5 a day with his last drink this a.m. Last went through detox 2 months ago but started drinking again 3 weeks ago. In the ED creatinine 1.55, LFTs within normal limits, lipase normal, blood alcohol level 47.9, CBC with hemoglobin 12.5 which seems to be baseline. Vitally stable. Hospitalist contacted for admission for alcohol detox. Patient evaluated at bedside. He reports 3 weeks ago he relapsed and has been drinking 1/5th of whiskey daily with last drink this AM. Currently feeling a little shaky and nauseated. No headache, no abd pain, no diarrhea. No other new or acute complaints. Does note he has an appt w/ his psychiatrist on Tuesday and will need to be d/c'd by Tuesday morning [facility] Medical History Obesity (BMI 30.0-34.9) Bipolar disorder Alcohol dependence Tobacco dependence Alcohol dependence Essential (primary) hypertension Umbilical hernia Restless legs High cholesterol Substance abuse Alcohol abuse Bipolar disorder Anxiety Depression Hypothyroidism Diabetes Rheumatoid arthritis Kidney stones Smoker Sleep apnea COPD (chronic obstructive pulmonary disease) Irregular heart beat Chest pain Hypertension Home Medications ?Medication ?Instructions ?Recorded ?Last Taken ?Type amlodipine 10 mg tablet 10 mg PO DAILY bp 08/21/24 11/05/24 History bupropion HCl 150 mg 24 hr tablet, 150 mg PO DAILY depression 08/21/24 11/05/24 History extended release escitalopram oxalate 20 mg tablet 20 mg PO DAILY mood 08/21/24 11/05/24 History hydroxyzine HCl 25 mg tablet 25 mg PO TID PRN PRN anxiety 08/21/24 11/05/24 History lisinopril 10 mg tablet 10 mg PO DAILY bp 08/21/24 11/05/24 History cariprazine 1.5 mg capsule 1.5 mg PO DAILY 11/05/24 11/05/24 History ([place]) levothyroxine 75 mcg tablet 75 mcg PO DAILY 11/05/24 11/05/24 History lorazepam 1 mg tablet 1 mg PO BID 11/05/24 11/05/24 History Allergy/AdvReac Type Severity Reaction Status Date / Time No Known Allergies Allergy Verified 11/05/24 16:54 Social History (Updated 11/05/24 @ 17:[address] Armani Sosa, DO) Smoking Status: Heavy Smoker (>10/day) alcohol intake: current alcohol intake frequency: 3 or more drinks per day Alcohol type: hard liquor ROS ROS Narrative General: Denies fever/chills HENT: Denies headache, denies stuffy nose, denies sore throat EYES: Denies changes in vision Resp: Denies cough, denies shortness of breath Cardiac: Denies chest pain GI: Denies abdominal pain, denies changes in bowel, a little bit of nausea : Denies changes in urination Extremity: Denies swelling MSK: Denies weakness Neuro: Denies any numbness/tingling, is feeling shaky Heme: Denies any bleeding or bruising Skin: Denies rashes Psychiatric: feels like shit Vital Signs Vital Signs Vital Signs: 11/05/24 16:53 11/05/24 17:53 11/05/24 18:45 Temperature 98 F 97.6 F L Temperature Source Temporal Pulse Rate 93 91 91 Respiratory Rate 14 18 18 Blood Pressure 116/71 112/77 112/77 Blood Pressure Mean 86 88 88 Pulse Ox 98 99 99 Oxygen Delivery Method Room Air Weight Weight: 96.1 kg Body Mass Index (BMI) 31.2 Physical Exam Narrative General: Alert, oriented, appears to feel unwell HEENT: Atraumatic, normocephalic Eyes: Anicteric, normal conjunctiva, extraocular movements grossly intact Neck: Supple Respiratory: Clear to auscultation bilaterally, normal respiratory effort Cardiovascular: Regular rate and rhythm GI: slightly firm, non tender, no rebound, guarding, rigidity Extremities: No edema Musculoskeletal: Moving all extremities Neuro: No overt focal neurological deficits, some tremors appreciated Skin: No rashes appreciated Psych: overall cooperative Results Lab / Micro Data 11/05/24 18:00 11/05/24 18:00 Labs: Laboratory Results - last 24 hr 11/05/24 18:00: WBC 5.0, RBC 3.85 L, Hgb 12.5 L, Hct 37.0 L, MCV 96.1 H, MCH 32.5 H, MCHC 33.8, RDW Std Deviation 53.1 H, RDW Coeff of Debbie 15.2 H, Plt Count 275, MPV 8.6, Immature Gran % (Auto) 1.600 H, Neut % (Auto) 58.3, Lymph % (Auto) 28.4, Braxton % (Auto) 8.5, Eos % (Auto) 2.4, Baso % (Auto) 0.8, Absolute Neuts (auto) 2.9, Absolute Lymphs (auto) 1.43, Nucleated RBC % 0.6, Sodium 136, Potassium 4.9, Chloride 100, Carbon Dioxide 22.6, Anion Gap 13, BUN 21 H, Creatinine 1.55 H, Estim Creat Clear Calc 60.86, Est GFR (MDRD) Non-Af 52 L, BUN/Creatinine Ratio 13.5, Glucose 92, Calcium 8.7, Total Bilirubin 0.20, AST 14, ALT 8, Alkaline Phosphatase 90, Total Protein 6.8, Albumin 4.0, Globulin 2.8, Albumin/Globulin Ratio 1.4, Lipase 42, Ethyl Alcohol 47.9 H Assessment & Plan Assessment/Plan (1) Alcohol withdrawal: PLAN: Plan #Alcohol use disorder - We will begin CIWA every 4 for 24 hours, then every 6 for 24 hours, then every 12 until discharge -Will begin phenobarbital taper -Gabapentin 300 mg every 8 as needed -Will start Bentyl and hydroxyzine as needed as well as loperamide as needed -Trazodone 100 mg p.o. nightly as needed sleep -Begin thiamine and folic acid supplementation -Zofran as needed for nausea -Case management consult to assist with discharge planning -EtOH 47.9 -UDS ordered #Hypothyroidism -Continue Synthroid #Depression/anxiety -Continue home medications #Hypertension - Hold home antihypertensives as multiple of the detox medications can lower blood pressure #DVT ppx: Low risk, ambulatory Bev Garcia MD Charges/Coding Visit Charges Inpatient E&M: 30602 Init Hosp L2
[2024-11-05 19:50] VITALS: BP 127/80; PULSE 85; RESP 18; TEMP 36.8; O2SAT 95
[2024-11-05 19:50] LABS: Amphetamine Urine NEGATIVE (<1000 ng/mL); Barbiturate Urine NEGATIVE (< 200 ng/mL); Benzodiazepine Urine PRESUMPTIVE POSITIVE (< 200 ng/mL); Buprenorphine Urine NEGATIVE (< 200 ng/mL); Cocaine Urine NEGATIVE (< 300 ng/mL); Fentanyl, Urine NEGATIVE; Methadone Urine NEGATIVE (< 300 ng/mL); Opiates Urine NEGATIVE (< 300 ng/mL); Oxycodone, Urine NEGATIVE (< 100 ng/mL); PCP Urine NEGATIVE (< 25 ng/mL); THC Urine NEGATIVE (< 50 ng/mL)
[2024-11-05 19:59] VITALS: BMI 31.4
[2024-11-05] MEDS: Ondansetron 8 MG Tablet PO (20:21)
[2024-11-05] MEDS: Loperamide 2 MG Capsule PO (20:21)
[2024-11-05] MEDS: Phenobarbital 32.4 MG Tablet 64.8 MG PO (20:21)
[2024-11-05] MEDS: hydrOXYzine PAM 25 MG Capsule 50 MG PO (20:21)
[2024-11-05] MEDS: 0.9% Normal Saline (1000mL) 1,000 ML 100 ML IV (20:21)
--- OUTSIDE RECORDS SUMMARY | 2024-11-05 23:18 | XMS RPT_ITS | CCD ---
Author Organization [facility] Care Team Providers Care Commodity Loan Clerk Name Role Phone Esther Chavez Adilia Unavailable Unavailable Aniya Perez Attending Unavailabl e REFERRING, PHY WO ID Primary Care Physician Unav ailable REFERRING, MARYANY WO RETA Attending Unavailable REFERRING, PHCarter WO RETA Primary Care Unavailable Tariq CISNEROS, Iris Primary Care Provider [phone] Iris Potter MD Attending Provider [phone] Iris Potter MD Referring Provider Dr. Jay Crocker DO Emergency Provider Jones DO, Dr. Vila Admit Provider Unavail able Jones DO, Dr. Vila Attending Provider Unav isabelable Jones DO, Dr. Vila Other Provider Unavail able Dr. Eveline Bradford DO Attending Provider [phone] Dr. Eveline Bradford DO Other Provider Tariq, Chalon Primary Care Unavailable Tariq, Iris Attending Unavailable Tariq, Chalon Referring Unavailable Tariq, Chalon Primary Care Unavailable Tariq, Iirs Attending Unavailable Tariq, Chalon Referring Unavailable Eveline Bradford Attending Unavailable Julito Jones Consulting Unavailable Julito Jones Admitting Unavailable Tariq, Chalon Primary Care Unavailable Eveline Bradford Consulting Unavailable Tariq, Chalon Primary Care Unavailable Eveline Bradford Attending Unavailable Julito Jones Admitting Unavailable Julito Jones Consulting Unavailable Julito Jones Attending Unavailable Tariq, Iris Attending Unavailable Tariq, Chalon Referring Unavailable Tariq, Chalon Primary Care Unavailable Medications Current Medications Medication Drug Class(es) Dates Sig (Normalized) Sig (Original) ALPRAZolam 0.5 mg oral tablet (3 sources) Benzodiazepine Start: 08-21-2024 take 1 tablet by mouth at bedtime Alprazolam 0.5 mg tablet Active 0.5 mg PO AT BEDTIME August 21, 2024 12:00am amLODIPine 10 mg oral tablet (3 sources) Dihydropyridine Calcium Channel Lauren Start: 08-21-2024 take 1 tablet by mouth once daily Amlodipine 10 mg tablet Active 10 mg PO DAILY August 21, 2024 12:00am 24 hr buPROPion hydrochloride 150 mg extended release oral tablet (3 sources) Aminoketone Start: 08-21-2024 take 1 tablet by mouth once daily Bupropion Hcl 150 mg tablet extended release 24 hr Active 150 mg PO DAILY August 21, 2024 12:00am escitalopram 20 mg oral tablet (3 sources) Serotonin Reuptake Inhibitor Start: 08-21-2024 take 1 tablet by mouth once daily Escitalopram Oxalate 20 mg tablet Active 20 mg PO DAILY August 21, 2024 12:00am FLUoxetine 20 mg oral capsule (3 sources) Serotonin Reuptake Inhibitor Start: 08-21-2024 take 1 capsule by mouth once daily Fluoxetine 20 mg capsule Active 20 mg PO DAILY August 21, 2024 12:00am hydrOXYzine hydrochloride 25 mg oral tablet (3 sources) Antihistamine Start: 08-21-2024 take 1 tablet by mouth three times daily as needed for anxiety Hydroxyzine Hcl 25 mg tablet Active 25 mg PO 3 TIMES DAILY NEEDED as needed for anxiety August 21, 2024 12:00am levothyroxine sodium 0.05 mg oral tablet (3 sources) l-Thyroxine Start: 08-21-2024 take 1 tablet by mouth once daily Levothyroxine 50 mcg tablet Active 50 ug PO DAILY August 21, 2024 12:00am lisinopril 10 mg oral tablet (11 sources) Angiotensin Converting Enzyme Inhibitor Start: 08-21-2024 take 1 tablet by mouth once daily Lisinopril 10 mg tablet Active 10 mg PO DAILY August 21, 2024 12:00am Start: 07-12-2018 End: 10-12-2018 take 1 tablet by mouth once daily Lisinopril 5 MG tablet Discontinued 5 mg PO DAILY 90 90 July 14, 2018 9:57am October 11, 2018 12:00am October 12, 2018 12:06am Completed/Discontinued Medications Medication Drug Class(es) Dates Sig (Normalized) Sig (Original) allopurinol 100 mg oral tablet (4 sources) Xanthine Oxidase Inhibitor Start: 04-11-2015 End: 08-21-2024 take 1 tablet by mouth once daily at mealtime as needed for pain Allopurinol 100 MG tablet Discontinued 100 mg PO DAILY WITH MEALS as needed for Pain April 11, 2015 1:00am August 21, 2024 1:33am gout Problems Active Problems Problem Classification Problem Date Documented Da te Episodic/Chronic Alcohol-related disorders (20 sources) Alcohol dependence; Translations: [Alcohol dependence, uncomplicated] Onset: 08-24-2024 07-12-2018 Chronic Essential hypertension (13 sources) Essential hypertension; Translations: [Essential (primary) hypertension] Onset: 08-04-2024 07-12-2018 Chronic Mood disorders (7 sources) Bipolar disorder; Translations: [Bipolar disorder, unspecified] Onset: 08-24-2024 08-21-2024 Chronic Other gastrointestinal disorders (4 sources) Swollen abdomen; Translations: [Abdominal distension (gaseous)] 08-21-2024 Episodic Other gastrointestinal disorders (1 source) Abdominal distension (gaseous); Translations: [Abdominal distension (gaseous)] Onset: 08-24-2024 Episodic Other liver diseases (2 sources) Cirrhosis of liver; Translations: [Unspecified cirrhosis of liver] 08-24-2024 Chronic Other nutritional; endocrine; and metabolic disorders (6 sources) Obese class I; Translations: [Class 1 obesity] 08-21-2024 Chronic Substance-related disorders (12 sources) Tobacco dependence syndrome; Translations: [Nicotine dependence, unspecified, uncomplicated] Onset: 08-24-2024 07-12-2018 Chronic Unclassified (2 sources) Z79.899,E55.9~ Onset: 08-11-2018 Unclassified (5 sources) Readiness finding 08-21-2024 Unclassified (1 source) Low back pain, unspecified; Translations: [Low back pain, unspecified] Onset: 08-29-2024 Unclassified (1 source) Alcohol use, unspecified with withdrawal, uncomplicated; Translations: [Alcohol use, unspecified with withdrawal, uncomplicated] Onset: 08-24-2024 Unclassified (1 source) Obesity, class 1; Translations: [Obesity, class 1] Onset: 08-24-2024 Past or Other Problems Problem Classification Problem Date Documented Da te Episodic/Chronic Spondylosis; intervertebral disc disorders; other back problems (1 source) Cervicalgia; Translations: [Cervicalgia] Onset: 01-08-2024 Episodic Results Test Name Value Interpretation Reference Range Facility Hips B/L min 2 views w/ Pelv nick 08-24-2024 Hips B/L min 2 views w/ Pelvis [facility] Imaging Services [address] [place] [address] Hips B/L min 2 views w/ Pelvis MR#: [id number] Acct: [id number] Name: CARROLL BUTTS P Rep #: [id number] : 1970 M 54 From: Ferny Khan MD PCP: Dr. Iris Potter MD Status: REG CLI Study: Hips B/L min 2 views w/ Pelvis Date of Exam: 0 08/24/24 Exam# [id number] Ordering Dr: Iris Potter MD EXAM: XR Bilateral Hips With Pelvis When Performed, 2 Views CLINICAL INDICATION: PAIN TECHNIQUE: Frontal view of the bilateral hips with pelvis when performed. COMPARISON: No relevant prior studies available. FINDINGS: BONES/JOINTS: Unremarkable. No acute fracture. No dislocation. SOFT TISSUES: Unremarkable. RAD/Hips B/L min 2 views w/ Pelvis IMPRESSION: Normal bilateral hip x-ray. [facility] CC: Dr. Iris Potter MD Design Assistant: Signed Normal [facility] L/S Spine Min 4 Viewson 08-14 L/S Spine Min 4 Views [facility] Imaging Services [address] [place] [address] L/S Spine Min 4 Views MR#: [id number] Acct: [id number] Name: LIZZYRASTACARROLL P Rep #: [id number] : 1970 M 54 From: Ferny Khan MD PCP: Dr. Iris Potter MD Status: REG CLI Study: L/S Spine Min 4 Views Date of Exam: 08/24/24 Exam# [id number] Ordering Dr: Iris Potter MD EXAM: XR Lumbosacral Spine Flexion/Extension Only, 2 or 3 Views CLINICAL INDICATION: LOW BACK PAIN TECHNIQUE: Lateral flexion/extension views of the lumbar spine and sacrum. COMPARISON: No relevant prior studies available. FINDINGS: VERTEBRAE: Facet arthropathy of L5-S1. Normal sagittal alignment. No acute fracture. SACRUM/COCCYX: Unremarkable as visualized. No acute fracture. DISC SPACES: No acute findings. No significant narrowing. SOFT TISSUES: Unremarkable. RAD/L/S Spine Min 4 Views IMPRESSION: No acute fracture. Reading Location: [facility] CC: Dr. Iris Potter MD Design Assistant: Signed Normal [facility] Absolute neutrophil countOrd ered By: Julito Dela Cruz on 08-22-2024 Neutrophils (Bld) [#/Vol] 3.2 10*3/uL 2.0-7.7 [facility] Anion gap in Serum or Plasma Ordered By: Julito Dela Cruz on 08-22-2024 Anion gap [Moles/Vol] 11 mmol/L 5-15 [facility] BUN/creatinine ratioOrdered By: Julito Dela Cruz on 08-22-2024 Urea nitrogen/Creatinine [Mass ratio] 13.5 mg/mg 10-20 [facility] Basophil percentageOrdered B y: Julito Dela Cruz on 08-22-2024 Basophils/100 WBC (Bld) 0.7 % 0-1 [facility] Bilirubin, totalOrdered By: Julito Dela Cruz on 08-22-2024 Bilirubin [Mass/Vol] mg/dL 0.00-1.30 [facility] CBC W/Diff, Automatedon 04-0 Absolute Lymph 1.91 X10 3/uL Normal 0.83-4.51 [facility] Comment on above: Performed By: #### L 501.5200, L500.4050, L100.0100 ####[facility] [address] [place], [address] Absolute Neut 3.2 X10 3/uL Normal 2.0-7.7 [facility] Comment on above: Performed By: #### L 501.5200, L500.4050, L100.0100 ####[facility] [address] [place], [address] Basophils/100 WBC (Bld) 0.7 % Normal 0-1 [facility] Comment on above: Performed By: #### L 501.5200, L500.4050, L100.0100 ####[facility] [address] [place], [address] Eosinophils/100 WBC (Bld) 2.7 % Normal 0-5 [facility] Comment on above: Performed By: #### L 501.5200, L500.4050, L100.0100 ####[facility] [address] [place], [address] Erythrocyte distribution width (RBC) [Ratio] 14.4 % Normal 11.6-14.6 [facility] Comment on above: Performed By: #### L 501.5200, L500.4050, L100.0100 ####[facility] [address] [place], [address] Hematocrit (Bld) [Volume fraction] 35.4 % Low 40-54 [facility] Comment on above: Performed By: #### L 501.5200, L500.4050, L100.0100 ####[facility] [address] [place], [address] Hemoglobin (Bld) [Mass/Vol] 12.0 g/dL Low 13.0-16.5 [facility] Comment on above: Performed By: #### L 501.5200, L500.4050, L100.0100 ####[facility] [address] [place], [address] IG% 0.900 Normal 0.0-0.9 [facility] Comment on above: Result Comment: IG% - Immature Granulocytes (promyelocytes, myelocytes and metamyelocytes) > 1% indicates that a LEFT SHIFT is Present. Performed By: #### L 501.5200, L500.4050, L100.0100 ####[facility] [address] [place], [address] Lymphocytes/100 WBC (Bld) 32.6 % Normal 19-41 [facility] Comment on above: Performed By: #### L 501.5200, L500.4050, L100.0100 ####[facility] [address] [place], [address] MCH (RBC) [Entitic mass] 32.8 pg High 27.0-32.0 [facility] Comment on above: Performed By: #### L 501.5200, L500.4050, L100.0100 ####[facility] [address] [place], [address] MCHC (RBC) [Mass/Vol] 33.9 g/dL Normal 32-36 [facility] Comment on above: Performed By: #### L 501.5200, L500.4050, L100.0100 ####[facility] [address] [place], [address] MCV (RBC) [Entitic vol] 96.7 fL High 80-94 [facility] Comment on above: Performed By: #### L 501.5200, L500.4050, L100.0100 ####[facility] [address] [place], [address] Monocytes/100 WBC (Bld) 9.4 % Normal 0-10 [facility] Comment on above: Performed By: #### L 501.5200, L500.4050, L100.0100 ####[facility] [address] [place], [address] Neutrophils/100 WBC (Bld) 53.7 % Normal 47-70 [facility] Comment on above: Performed By: #### L 501.5200, L500.4050, L100.0100 ####[facility] [address] [place], [address] Nucleated RBC (Bld) [#/Vol] 0 10*3/uL Normal 0-5 [facility] Comment on above: Performed By: #### L 501.5200, L500.4050, L100.0100 ####[facility] [address] [place], [address] Platelet mean volume (Bld) [Entitic vol] 8.9 fL Normal 6.2-12.0 [facility] Comment on above: Performed By: #### L 501.5200, L500.4050, L100.0100 ####[facility] [address] [place], [address] Platelets (Bld) [#/Vol] 232 10*3/uL Normal 150-450 [facility] Comment on above: Performed By: #### L 501.5200, L500.4050, L100.0100 ####[facility] [address] [place], [address] RBC (Bld) [#/Vol] 3.66 10*6/uL Low 4.6-6.2 [facility] Comment on above: Performed By: #### L 501.5200, L500.4050, L100.0100 ####[facility] [address] [place], [address] RDW SD 51.2 fl High 35.1-43.9 [facility] Comment on above: Performed By: #### L 501.5200, L500.4050, L100.0100 ####[facility] [address] [place], [address] WBC (Bld) [#/Vol] 5.9 10*3/uL Normal 4.4-11.0 [facility] Comment on above: Performed By: #### L 501.5200, L500.4050, L100.0100 ####[facility] [address] [place], [address] Carbon dioxide, total [Moles /volume] in Central venous bloodOrdered By: Julito Dela Cruz on 08-22-2024 CO2 [Moles/Vol] 21.0 mmol/L 21.0-32.0 [facility] Chloride assayOrdered By: Ajay Dela Cruz on 08-22-2024 Chloride [Moles/Vol] 100 mmol/L 98-108 [facility] Comprehensive Metabolic Prof ilon 08-22-2024 Albumin [Mass/Vol] 3.4 g/dL Low 3.5-5.0 [facility] Comment on above: Performed By: #### L 100.0100, L500.4100 #### [facility] [address] [place], [address] Albumin/Globulin [Mass ratio] 1.0 {ratio} Normal 0.9-2.4 [facility] Comment on above: Performed By: #### L 100.0100, L500.4100 #### [facility] [address] [place], [address] ALK PHOS 72 U/L Normal 40-129 [facility] Comment on above: Performed By: #### L 100.0100, L500.4100 #### [facility] [address] [place], [address] ALT [Catalytic activity/Vol] 6 U/L Normal <=46 [facility] Comment on above: Performed By: #### L 100.0100, L500.4100 #### [facility] [address] [place], [address] AST [Catalytic activity/Vol] 19 U/L Normal <=37 [facility] Comment on above: Performed By: #### L 100.0100, L500.4100 #### [facility] [address] [place], [address] BUN/CRE 13.5 RATIO Normal 10-20 [facility] Comment on above: Performed By: #### L 100.0100, L500.4100 #### [facility] [address] [place], [address] Calcium [Mass/Vol] 8.4 mg/dL Normal 7.6-11.0 [facility] Comment on above: Performed By: #### L 100.0100, L500.4100 #### [facility] [address] [place], [address] Chloride [Moles/Vol] 100 mmol/L Normal 98-108 [facility] Comment on above: Performed By: #### L 100.0100, L500.4100 #### [facility] [address] [place], [address] CO2 [Moles/Vol] 21.0 mmol/L Normal 21.0-32.0 [facility] Comment on above: Performed By: #### L 100.0100, L500.4100 #### [facility] [address] [place], [address] Creatinine [Mass/Vol] 1.17 mg/dL Normal 0.70-1.20 [facility] Comment on above: Performed By: #### L 100.0100, L500.4100 #### [facility] [address] [place], [address] ECRCL 79.25 ml/min Normal 50-250 [facility] Comment on above: Performed By: #### L 100.0100, L500.4100 #### [facility] [address] [place], [address] GAP 11 Normal 5-15 [facility] Comment on above: Performed By: #### L 100.0100, L500.4100 #### [facility] [address] [place], [address] GFR/1.73 sq M.predicted among non-blacks MDRD (S/P/Bld) [Vol rate/Area] 73 mL/min/{1.73_m2} Normal >60 [facility] Comment on above: Result Comment: mL/m in/1.73m2 CKD-EPI Creatinine Equation (2020) Performed By: #### L 100.0100, L500.4100 #### [facility] [address] [place], [address] Globulin (S) [Mass/Vol] 3.3 g/dL Normal 2.2-4.2 [facility] Comment on above: Performed By: #### L 100.0100, L500.4100 #### [facility] [address] [place], [address] Glucose [Mass/Vol] 82 mg/dL Normal 70-99 [facility] Comment on above: Performed By: #### L 100.0100, L500.4100 #### [facility] [address] [place], [address] Potassium [Moles/Vol] 4.4 mmol/L Normal 3.3-5.1 [facility] Comment on above: Performed By: #### L 100.0100, L500.4100 #### [facility] [address] [place], [address] Sodium [Moles/Vol] 132 mmol/L Low 133-145 [facility] Comment on above: Performed By: #### L 100.0100, L500.4100 #### [facility] [address] [place], [address] T BILI < 0.15 Normal 0.00-1.30 [facility] Comment on above: Performed By: #### L 100.0100, L500.4100 #### [facility] [address] [place], [address] T PROT 6.8 g/dL Normal 5.9-8.4 [facility] Comment on above: Performed By: #### L 100.0100, L500.4100 #### [facility] [address] [place], [place], [address] Urea nitrogen [Mass/Vol] 16 mg/dL Normal 4-19 [facility] Comment on above: Performed By: #### L 100.0100, L500.4100 #### [facility] [address] [place], [place], [address] Eosinophil percentageOrdered By: Julito Dela Cruz on 08-22-2024 Eosinophils/100 WBC (Bld) 2.7 % 0-5 [facility] Erythrocyte distribution wid th (RBC) [Ratio]Ordered By: Julito Dela Cruz on 08-22-2024 Erythrocyte distribution width (RBC) [Entitic vol] 51.2 fL High 35.1-43.9 [facility] Erythrocyte distribution wid th ratioOrdered By: Julito Dela Cruz on 08-22-2024 Erythrocyte distribution width (RBC) [Ratio] 14.4 % 11.6-14.6 [facility] Estimation of creatinine rubin aranceOrdered By: Juliot Dela Cruz on 08-22-2024 Estimated Creatinine Clearance Calc 79.25 ml/min 50-250 [facility] GFR/1.73 sq M.predicted moreno g non-blacks MDRD (S/P/Bld) [Vol rate/Area]Ordered By: Julito Dela Cruz on 08-22-2024 Estimated GFR (MDRD) Non-Af Amer 73 >60 [facility] Comment on above: mL/min/1.73m2 CKD-EP I Creatinine Equation (2020) Hematocrit Auto (Bld) [Volum e fraction]Ordered By: Julito Dela Cruz on 08-22-2024 Hematocrit (Bld) [Volume fraction] 35.4 % Low 40-54 [facility] Hemoglobin measurementOrdere d By: Julito Dela Cruz on 08-22-2024 Hemoglobin (Bld) [Mass/Vol] 12.0 g/dL Low 13.0-16.5 [facility] Immature granulocytes/100 WB C Auto (Bld)Ordered By: Julito Dela Cruz on 08-22-2024 Immature granulocytes/100 WBC (Bld) 0.900 % 0.0-0.9 [facility] Comment on above: IG% - Immature Granu locytes (promyelocytes, myelocytes and metamyelocytes) > 1% indicates that a LEFT SHIFT is Present. Laboratory - Chemistry and C hemistry - challengeOrdered By: Julito Dela Cruz on 08-22-2024 AST [Catalytic activity/Vol] 19 U/L <38 [facility] Lymphocytes Auto (Unsp spec) [#/Vol]Ordered By: Julito Dela Cruz on 08-22-2024 Lymphocytes (Bld) [#/Vol] 1.91 10*3/uL 0.83-4.51 [facility] Lymphocytes/100 WBC Auto (Un sp spec)Ordered By: Julito Dela Cruz on 08-22-2024 Lymphocytes/100 WBC (Bld) 32.6 % 19-41 [facility] MCV (mean corpuscular volume ) determinationOrdered By: Julito Dela Cruz on 08-22-2024 MCV (RBC) [Entitic vol] 96.7 fL High 80-94 [facility] Magnesiumon 08-22-2024 Magnesium [Mass/Vol] 2.1 mg/dL Normal 1.5-2.2 [facility] Comment on above: Performed By: #### L 100.0100, L500.4100 #### [facility] [address] [place] [address], [address] Magnesium (Unsp spec) [Mass/ Vol]Ordered By: Eveline Bradford on 08-22-2024 Magnesium [Mass/Vol] 2.1 mg/dL 1.5-2.2 [facility] Mean corpuscular hemoglobin (MCH) determinationOrdered By: Julito Dela Cruz on 08-22-2024 MCH (RBC) [Entitic mass] 32.8 pg High 27.0-32.0 [facility] Mean corpuscular hemoglobin concentration (MCHC) determinationOrdered By: Julito Dela Cruz on 08-22-2024 MCHC (RBC) [Mass/Vol] 33.9 g/dL 32-36 [facility] Mean platelet volume determi nationOrdered By: Julito Dela Cruz on 08-22-2024 Platelet mean volume (Bld) [Entitic vol] 8.9 fL 6.2-12.0 [facility] Monocyte percentageOrdered B y: Julito Dela Cruz on 08-22-2024 Monocytes/100 WBC (Bld) 9.4 % 0-10 [facility] Neutrophil percentageOrdered By: Julito Dela Cruz on 08-22-2024 Neutrophils/100 WBC (Bld) 53.7 % 47-70 [facility] Nucleated red blood cell per centageOrdered By: Julito Dela Cruz on 08-22-2024 Nucleated RBC/100 WBC (Bld) [Ratio] 0 % 0-5 [facility] Phosphoruson 08-22-2024 Phosphate [Mass/Vol] 3.2 mg/dL Normal 2.7-4.5 [facility] Comment on above: Performed By: #### L 100.0100, L500.4100 #### [facility] [address] [place] [address], [address] Platelet countOrdered By: Ajay Dela Cruz on 08-22-2024 Platelets (Bld) [#/Vol] 232 10*3/uL 150-450 [facility] Potassium (Unsp spec) [Mass/ Vol]Ordered By: Julito Dela Cruz on 08-22-2024 Potassium [Moles/Vol] 4.4 mmol/L 3.3-5.1 [facility] RBC Auto (Bld) [#/Vol]Ordere d By: Julito Dela Cruz on 08-22-2024 RBC (Bld) [#/Vol] 3.66 10*6/uL Low 4.6-6.2 [facility] Serum creatinine measurement (mass/volume)Ordered By: Julito Dela Cruz on 08-22-2024 Creatinine [Mass/Vol] 1.17 mg/dL 0.70-1.20 [facility] Serum globulin measurementOr dered By: Julito Dela Cruz on 08-22-2024 Globulin (S) [Mass/Vol] 3.3 g/dL 2.2-4.2 [facility] Serum glucose measurement (m ass/volume)Ordered By: Julito Dela Cruz on 08-22-2024 Glucose [Mass/Vol] 82 mg/dL 70-99 [facility] Serum or plasma alanine urias otransferase (ALT) measurementOrdered By: Julito Dela Cruz on 08-22-2024 ALT [Catalytic activity/Vol] 6 U/L <47 [facility] Serum or plasma albumin antonio urement (mass/volume)Ordered By: Julito Dela Cruz on 08-22-2024 Albumin [Mass/Vol] 3.4 g/dL Low 3.5-5.0 [facility] Serum or plasma albumin/glob ulin mass ratioOrdered By: Julito Dela Cruz on 08-22-2024 Albumin/Globulin [Mass ratio] 1.0 {ratio} 0.9-2.4 [facility] Serum or plasma alkaline syd sphatase measurementOrdered By: Julito Dela Cruz on 08-22-2024 ALP [Catalytic activity/Vol] 72 U/L 40-129 [facility] Serum or plasma calcium antonio urement (mass/volume)Ordered By: Julito Dela Cruz on 08-22-2024 Calcium [Mass/Vol] 8.4 mg/dL 7.6-11.0 [facility] Serum or plasma urea nitroge n measurement (mass/volume)Ordered By: Julito Dela Cruz on 08-22-2024 Urea nitrogen [Mass/Vol] 16 mg/dL 4-19 [facility] Serum phosphorus measurement Ordered By: Eveline Bradford on 08-22-2024 Phosphorus Level 3.2 mg/dL 2.7-4.5 [facility] Sodium levelOrdered By: Eder Dela Cruz on 08-22-2024 Sodium [Moles/Vol] 132 mmol/L Low 133-145 [facility] Total proteinOrdered By: Tenzin Dela Cruz on 08-22-2024 Protein [Mass/Vol] 6.8 g/dL 5.9-8.4 [facility] White blood cell (WBC) count Ordered By: Julito Dela Cruz on 08-22-2024 WBC (Bld) [#/Vol] 5.9 10*3/uL 4.4-11.0 [facility] Abdomen Completeon Abdomen Complete [facility] Imaging Services [address] [place] [address] Abdomen Complete MR#: [id number] Acct: [id number] Name: CARROLL BUTTS Rep #: [id number] : 1970 M 54 From: Armani Garcia MD PCP: Dr. Iris Potter MD Status: ADM IN Study: Abdomen Complete Date of Exam: 08/21/24 Exam# [id number] Ordering Dr: Julito Jones DO PROCEDURE: ABDOMEN COMPLETE 08/21/2024 REASON FOR EXAM: NEW-ONSET CIRRHOSIS. TECHNIQUE: Complete abdominal ultrasound jones-scale images with color doppler. PATIENT PREPARATION: Per protocol COMPARISON: No relevant prior. FINDINGS: Liver: Mild hepatomegaly at 19.1 cm in length. Hyperechogenic parenchyma. Homogeneous texture. Gallbladder: Unremarkable. Common bile duct: 0.56 cm in diameter. No ductal dilatation.. Pancreas: Normal. No ductal dilatation. Kidneys: The right kidney measures 11.2 x 5.3 x 5.7 cm. Right renal cortex measures 1.5 cm. The left kidney measures 11.2 x 5.4 x 5.5 cm.. Left renal cortex measures 1.0 cm. Left renal cyst measuring 3.2 x 3.2 x 3.0 cm. No calcifications. Spleen: 8.5 x 3.6 x 3.7 cm. No masses or other abnormalities.. Portal blood flow: Hepatopetal. Aorta: The proximal and distal aorta were not visualized. Mid abdominal aorta measures 1.5 cm in diameter. IVC: Unremarkable. Peritoneal Findings: Unremarkable. US/Abdomen Complete IMPRESSION: Mild hepatomegaly. Steatosis. Left renal cyst. Suboptimal evaluation of the aorta due to superimposed bowel-gas. Reading Location: [place] [address] CC: Dr. Iris Potter MD; Dr. Julito Jones DO Design Assistant: Signed Normal [facility] Absolute neutrophil countOrd ered By: Jay Crocker on 08-21-2024 Neutrophils (Bld) [#/Vol] 5.1 10*3/uL 2.0-7.7 [facility] Alcohol, Blood (Medical)-Ser umon 08-21-2024 SERUM ETOH < 10.1 Normal <=10.0 [facility] Comment on above: Result Comment: This test is for medical purposes only. The legal definition of intoxication varies according to local law. Performed By: #### L 100.0100, L505.5000, L501.9100, L500.4050 #### [facility] Laboratory [address] [place], [address] Amphetamines Screen method > 1000 ng/mL Ql (U)Ordered By: Jay Crocker on 08-21-2024 Amphetamines Ql (U) Negative <1000 ng/mL [facility] Urine Barbiturates Screen Negative < 200 ng/mL [facility] Anion gap in Serum or Plasma Ordered By: Jay Crocker on 08-21-2024 Anion gap [Moles/Vol] 13 mmol/L 5-15 [facility] BUN/creatinine ratioOrdered By: Jay Crocker on 08-21-2024 Urea nitrogen/Creatinine [Mass ratio] 16.3 mg/mg 10-20 [facility] Basophil percentageOrdered B y: Jay Crocker on 08-21-2024 Basophils/100 WBC (Bld) 0.5 % 0-1 [facility] Bilirubin, totalOrdered By: Jay Crocker on 08-21-2024 Bilirubin [Mass/Vol] 0.35 mg/dL 0.00-1.30 [facility] CBC W/Diff, Automatedon 04 Absolute Lymph 1.75 X10 3/uL Normal 0.83-4.51 [facility] Comment on above: Performed By: #### L 100.0100, L505.5000, L501.9100, L500.4050 #### [facility] [address] [place], [place], [id number] Absolute Neut 5.1 X10 3/uL Normal 2.0-7.7 [facility] Comment on above: Performed By: #### L 100.0100, L505.5000, L501.9100, L500.4050 #### [facility] [address] [place], [address] Basophils/100 WBC (Bld) 0.5 % Normal 0-1 [facility] Comment on above: Performed By: #### L 100.0100, L505.5000, L501.9100, L500.4050 #### [facility] [address] [place], [address] Eosinophils/100 WBC (Bld) 2.1 % Normal 0-5 [facility] Comment on above: Performed By: #### L 100.0100, L505.5000, L501.9100, L500.4050 #### [facility] [address] [place], [address] Erythrocyte distribution width (RBC) [Ratio] 14.6 % Normal 11.6-14.6 [facility] Comment on above: Performed By: #### L 100.0100, L505.5000, L501.9100, L500.4050 #### [facility] [address] [place], [address] Hematocrit (Bld) [Volume fraction] 37.4 % Low 40-54 [facility] Comment on above: Performed By: #### L 100.0100, L505.5000, L501.9100, L500.4050 #### [facility] [address] [place], [address] Hemoglobin (Bld) [Mass/Vol] 12.7 g/dL Low 13.0-16.5 [facility] Comment on above: Performed By: #### L 100.0100, L505.5000, L501.9100, L500.4050 #### [facility] [address] [place], [address] IG% 0.800 Normal 0.0-0.9 [facility] Comment on above: Result Comment: IG% - Immature Granulocytes (promyelocytes, myelocytes and metamyelocytes) > 1% indicates that a LEFT SHIFT is Present. Performed By: #### L 100.0100, L505.5000, L501.9100, L500.4050 #### [facility] [address] [place], [address] Lymphocytes/100 WBC (Bld) 22.9 % Normal 19-41 [facility] Comment on above: Performed By: #### L 100.0100, L505.5000, L501.9100, L500.4050 #### [facility] [address] [place], [address] MCH (RBC) [Entitic mass] 32.8 pg High 27.0-32.0 [facility] Comment on above: Performed By: #### L 100.0100, L505.5000, L501.9100, L500.4050 #### [facility] [address] [place], [address] MCHC (RBC) [Mass/Vol] 34.0 g/dL Normal 32-36 [facility] Comment on above: Performed By: #### L 100.0100, L505.5000, L501.9100, L500.4050 #### [facility] [address] [place], [address] MCV (RBC) [Entitic vol] 96.6 fL High 80-94 [facility] Comment on above: Performed By: #### L 100.0100, L505.5000, L501.9100, L500.4050 #### [facility] [address] [place], [address] Monocytes/100 WBC (Bld) 7.2 % Normal 0-10 [facility] Comment on above: Performed By: #### L 100.0100, L505.5000, L501.9100, L500.4050 #### [facility] [address] [place], [address] Neutrophils/100 WBC (Bld) 66.5 % Normal 47-70 [facility] Comment on above: Performed By: #### L 100.0100, L505.5000, L501.9100, L500.4050 #### [facility] [address] [place], [address] Nucleated RBC (Bld) [#/Vol] 0.3 10*3/uL Normal 0-5 [facility] Comment on above: Performed By: #### L 100.0100, L505.5000, L501.9100, L500.4050 #### [facility] [address] [place], [address] Platelet mean volume (Bld) [Entitic vol] 8.6 fL Normal 6.2-12.0 [facility] Comment on above: Performed By: #### L 100.0100, L505.5000, L501.9100, L500.4050 #### [facility] [address] [place], [address] Platelets (Bld) [#/Vol] 262 10*3/uL Normal 150-450 [facility] Comment on above: Performed By: #### L 100.0100, L505.5000, L501.9100, L500.4050 #### [facility] [address] [place], [address] RBC (Bld) [#/Vol] 3.87 10*6/uL Low 4.6-6.2 [facility] Comment on above: Performed By: #### L 100.0100, L505.5000, L501.9100, L500.4050 #### [facility] [address] [place], [address] RDW SD 51.8 fl High 35.1-43.9 [facility] Comment on above: Performed By: #### L 100.0100, L505.5000, L501.9100, L500.4050 #### [facility] [address] [place], [address] WBC (Bld) [#/Vol] 7.6 10*3/uL Normal 4.4-11.0 [facility] Comment on above: Performed By: #### L 100.0100, L505.5000, L501.9100, L500.4050 #### [facility] [address] [place], [address] Carbon dioxide, total [Moles /volume] in Central venous bloodOrdered By: Jay Crocker on 08-21-2024 CO2 [Moles/Vol] 22.2 mmol/L 21.0-32.0 [facility] Chloride assayOrdered By: Mary Crocker on 08-21-2024 Chloride [Moles/Vol] 100 mmol/L 98-108 [facility] Comprehensive Metabolic Prof ilon 08-21-2024 Albumin [Mass/Vol] 4.3 g/dL Normal 3.5-5.0 [facility] Comment on above: Performed By: #### L 100.0100, L505.5000, L501.9100, L500.4050 #### [facility] [address] [place], [address] Albumin/Globulin [Mass ratio] 1.3 {ratio} Normal 0.9-2.4 [facility] Comment on above: Performed By: #### L 100.0100, L505.5000, L501.9100, L500.4050 #### [facility] [address] [place], [address] ALK PHOS 87 U/L Normal 40-129 [facility] Comment on above: Performed By: #### L 100.0100, L505.5000, L501.9100, L500.4050 #### [facility] [address] [place], [address] ALT [Catalytic activity/Vol] 8 U/L Normal <=46 [facility] Comment on above: Performed By: #### L 100.0100, L505.5000, L501.9100, L500.4050 #### [facility] [address] [place], [address] AST [Catalytic activity/Vol] 20 U/L Normal <=37 [facility] Comment on above: Performed By: #### L 100.0100, L505.5000, L501.9100, L500.4050 #### [facility] [address] [place], [address] Bilirubin [Mass/Vol] 0.35 mg/dL Normal 0.00-1.30 [facility] Comment on above: Performed By: #### L 100.0100, L505.5000, L501.9100, L500.4050 #### [facility] [address] [place], [address] BUN/CRE 16.3 RATIO Normal 10-20 [facility] Comment on above: Performed By: #### L 100.0100, L505.5000, L501.9100, L500.4050 #### [facility] [address] [place], [address] Calcium [Mass/Vol] 9.1 mg/dL Normal 7.6-11.0 [facility] Comment on above: Performed By: #### L 100.0100, L505.5000, L501.9100, L500.4050 #### [facility] [address] [place], [address] Chloride [Moles/Vol] 100 mmol/L Normal 98-108 [facility] Comment on above: Performed By: #### L 100.0100, L505.5000, L501.9100, L500.4050 #### [facility] [address] [place], [address] CO2 [Moles/Vol] 22.2 mmol/L Normal 21.0-32.0 [facility] Comment on above: Performed By: #### L 100.0100, L505.5000, L501.9100, L500.4050 #### [facility] [address] [place], [address] Creatinine [Mass/Vol] 1.53 mg/dL High 0.70-1.20 [facility] Comment on above: Performed By: #### L 100.0100, L505.5000, L501.9100, L500.4050 #### [facility] [address] [place], [address] ECRCL 60.98 ml/min Normal 50-250 [facility] Comment on above: Performed By: #### L 100.0100, L505.5000, L501.9100, L500.4050 #### [facility] [address] [place], [address] GAP 13 Normal 5-15 [facility] Comment on above: Performed By: #### L 100.0100, L505.5000, L501.9100, L500.4050 #### [facility] [address] [place], [address] GFR/1.73 sq M.predicted among non-blacks MDRD (S/P/Bld) [Vol rate/Area] 53 mL/min/{1.73_m2} Low >60 [facility] Comment on above: Result Comment: mL/m in/1.73m2 CKD-EPI Creatinine Equation (2020) Performed By: #### L 100.0100, L505.5000, L501.9100, L500.4050 #### [facility] [address] [place], [address] Globulin (S) [Mass/Vol] 3.3 g/dL Normal 2.2-4.2 [facility] Comment on above: Performed By: #### L 100.0100, L505.5000, L501.9100, L500.4050 #### [facility] [address] [place], [address] Glucose [Mass/Vol] 94 mg/dL Normal 70-99 [facility] Comment on above: Performed By: #### L 100.0100, L505.5000, L501.9100, L500.4050 #### [facility] [address] [place], [address] Potassium [Moles/Vol] 4.4 mmol/L Normal 3.3-5.1 [facility] Comment on above: Performed By: #### L 100.0100, L505.5000, L501.9100, L500.4050 #### [facility] [address] [place], [address] Sodium [Moles/Vol] 135 mmol/L Normal 133-145 [facility] Comment on above: Performed By: #### L 100.0100, L505.5000, L501.9100, L500.4050 #### [facility] [address] [place], [address] T PROT 7.5 g/dL Normal 5.9-8.4 [facility] Comment on above: Performed By: #### L 100.0100, L505.5000, L501.9100, L500.4050 #### [facility] [address] [place], [address] Urea nitrogen [Mass/Vol] 25 mg/dL High 4-19 [facility] Comment on above: Performed By: #### L 100.0100, L505.5000, L501.9100, L500.4050 #### [facility] [address] [place], [address] Emergency Department Summary on 08-21-2024 Emergency Department Summary [facility] Medical Records Department [address] [place] [address] Emergency Department Summary 08/21/24 MR#: [id number] Acct: [id number] Name: CARROLL BUTTS Rep #: [id number] : 1970 54 From: Jay Crocker DO PCP: Dr. Iris Potter MD Status:ADM IN Location: MS3 [id number] HPI History of Present Illness Chief Complaint: Substance Abuse Informant: patient and spouse/S.O. Narrative Narrative: Patient is a 54-year-old male with past medical history of hypertension as well as bipolar disorder. He also reports a longstanding history of alcohol abuse/use. 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 He states he has been in rehab before but the most recent placement was in 2016. He states that his last drink was at 8 AM on August 20. He denies any known history of cirrhosis. However this time he states he wishes to try and get sober once again and therefore comes in for evaluation. He admits alcohol use but states he does not use any other illicit substance. He also denies any progression to delirium tremens/seizures with his previous times in rehab [facility] Medical History (Updated 08/21/24 @ 06:[address] Jay Crocker DO) Umbilical hernia Restless legs High cholesterol Substance abuse Alcohol abuse Bipolar disorder Anxiety Depression Hypothyroidism Diabetes Rheumatoid arthritis Kidney stones Smoker Sleep apnea COPD (chronic obstructive pulmonary disease) Irregular heart beat Chest pain Hypertension Home Medications ???Medication ???Instructions ???Recorded ???Last Taken ???Type alprazolam 0.5 mg tablet 0.5 mg PO QHS anxiety 08/21/24 Unk nown History amlodipine 10 mg tablet 10 mg PO DAILY bp 08/21/24 Unknown History bupropion HCl 150 mg 24 hr tablet, 150 mg PO DAILY depression 08/21 Unknown History extended release escitalopram oxalate 20 mg tablet 20 mg PO DAILY mood 08/21/24 Unkn own History fluoxetine 20 mg capsule 20 mg PO DAILY mood 08/21/24 Unkno wn History hydroxyzine HCl 25 mg tablet 25 mg PO TID PRN PRN anxiety 08/21 Unknown History levothyroxine 50 mcg tablet 50 mcg PO DAILY thyroid 08/21/24 U nknown History lisinopril 10 mg tablet 10 mg PO DAILY bp 08/21/24 Unknown History Allergy/AdvReac Type Severity Reaction Status Date / Time No Known Allergies Allergy Verified 08/21/24 00:07 Social History (System 08/08/18 @ 14:59 by Yoselyn Winchester) Smoking Status: Heavy Smoker (>10/day) ROS ROS ED Constitutional Constitutional ED: Denies chills or fever(s) Eyes Eyes: Denies blurry vision or change in vision ENT ENT ED: Denies sore throat Cardiovascular Cardiovascular: Denies chest pain, palpitations or racing heartbeat Respiratory/Chest Respiratory/Chest: Denies cough or dyspnea Gastrointestinal Gastrointestinal: Denies abdominal pain, diarrhea, nausea or vomiting Genitourinary Genitourinary ED: Denies dysuria Musculoskeletal Musculoskeletal: Denies myalgias Integumentary Denies rash Neurologic Neurologic: Denies headache(s) Psychiatric Psychiatric: Denies suicidal ideation or suicidal thoughts Hematologic/Lymphatic Hematologic/Lymphatic: Denies easy bleeding or easy bruising EXAM Physical Exam Const Vital Signs: 08/21/24 00:05 08/21/24 02:05 08/21/24 03:37 Temperature 98 F 98 F Temperature Source Oral Pulse Rate 81 89 78 Respiratory Rate 16 16 16 Blood Pressure 136/90 H 145/70 H 133/73 H Blood Pressure Mean 105 95 93 Pulse Ox 97 98 95 Oxygen Delivery Method Room Air Room Air Positive well nourished, well developed and obese General Appearance ED: well developed Nutritional Appearance: obese HEENT HEENT Narrative: Normocephalic atraumatic Eyes PERRL and EOMs intact bilaterally Eyes Narrative: Faint scleral icterus is noted Neck supple and no JVD Resp normal respiratory effort and clear to auscultation bilaterally Cardio regular rate and regular rhythm GI non-tender and no masses GI Narrative: Abdomen is soft with slight distention. There is no pain with palpation. Bowel sounds are normal active. There is faint fluid wave noted concerning for abdominal ascites. No peritoneal signs. No rigidity. No pulsatile mass Auscultation: normoactive bowel sounds Palpation: soft Extremity Extremity Narrative: There is +1 pitting edema to the bilateral lower extremities that is equal and symmetric Negative Homans' sign bilaterally Neuro oriented x3, CN's II-XII intact bilaterally and no sensory deficits noted Neuro Narrative: Patient does have faint tremors of bilateral hands Sensorium / Orientation: alert Motor Exam: strength 5/5 t (more content not included)... Normal [facility] Eosinophil percentageOrdered By: Jay Crocker on 08-21-2024 Eosinophils/100 WBC (Bld) 2.1 % 0-5 [facility] Erythrocyte distribution wid th (RBC) [Ratio]Ordered By: Jay Crocker on 08-21-2024 Erythrocyte distribution width (RBC) [Entitic vol] 51.8 fL High 35.1-43.9 [facility] Erythrocyte distribution wid th ratioOrdered By: Jay Crocker on 08-21-2024 Erythrocyte distribution width (RBC) [Ratio] 14.6 % 11.6-14.6 [facility] Estimation of creatinine rubin aranceOrdered By: Jay Crocker on 08-21-2024 Estimated Creatinine Clearance Calc 60.98 ml/min 50-250 [facility] Ethanol [Mass/Vol]Ordered By : Jay Crocker on 08-21-2024 Ethyl Alcohol Level < 10.1 mg/dL <10.1 [facility] Comment on above: This test is for med ical purposes only. The legal definition of intoxication varies according to local law. GFR/1.73 sq M.predicted moreno g non-blacks MDRD (S/P/Bld) [Vol rate/Area]Ordered By: Jay Crocker on 08-21-2024 Estimated GFR (MDRD) Non-Af Amer 53 Low >60 [facility] Comment on above: mL/min/1.73m2 CKD-EP I Creatinine Equation (2020) H AND P Exam - [facility] 08-21-2024 H&P Exam - Hospitalist [facility] Medical Records Department [address] [place] [address] H P Exam - Hospitalist 08/21/24 0325 MR#: [id number] Acct: [id number] Name: CARROLL BUTTS Rep #: [id number] : 1970 54 From: Julito Jones DO PCP: Dr. Iris Potter MD Status:ADM IN Location: [facility] [id number] HPI - General General Date of Admission: 08/21/24 Date of Service: 08/21/24 Chief Complaint: EtOH Withdrawal. HPI Narrative CARROLL BUTTS, is a 54 M with a past medical history of essential hypertension; on amlodipine and lisinopril, hypothyroidism; on levothyroxine, obesity; with a BMI of 32.6 this admission, [place], chronic alcohol abuse; with patient admitting to drinking 1/5 of vodka daily plus multiple 'screwdrivers', history of tobacco abuse;with subsequent COPD, history of RA, history of umbilical hernia; s/p repair, history of renal calculi, RLS, bipolar disorder; on escitalopram, fluoxetine, bupropion, alprazolam nightly and as needed hydroxyzine 3 times daily and history of admission here from July 12, 2018 to July 14, 2018 for treatment of acute alcohol withdrawal with patient subsequently transition to [facility] in [place], [place] for long-term rehabilitation who presents to [facility] ER complaining of alcohol withdrawal. Mr. Butts reports his symptoms began approximately shortly after he took his last alcoholic drink on the morning of August 20, 2024 with a gradual-onset of tremors and heightened anxiety so he decided to come in for further evaluation and treatment. He also admits to increasing abdominal distention that is new with patient denying history of cirrhosis or similar previous episodes. His accompanied him at the bedside and helped augment the history. There was no report of fever, chills, nausea, vomiting, diarrhea, abdominal pain, chest pain or headache. In the ER he was noted to have a MADHU less than 10 mg/dL and he was diagnosed with Acute EtOH Withdrawal in the setting of Chronic EtOH Abuse complicated by suspected new-onset Cirrhosis and he was then admitted to the general medical floor for ongoing care for stay that is expected to extend beyond 2 midnights. [facility] Medical History (Updated 08/21/24 @ 04:[address] Julito Jones, DO) Umbilical hernia Restless legs High cholesterol Substance abuse Alcohol abuse Bipolar disorder Anxiety Depression Hypothyroidism Diabetes Rheumatoid arthritis Kidney stones Smoker Sleep apnea COPD (chronic obstructive pulmonary disease) Irregular heart beat Chest pain Hypertension Home Medications ???Medication ???Instructions ???Recorded ???Last Taken ???Type alprazolam 0.5 mg tablet 0.5 mg PO QHS anxiety 08/21/24 Unk nown History amlodipine 10 mg tablet 10 mg PO DAILY bp 08/21/24 Unknown History bupropion HCl 150 mg 24 hr tablet, 150 mg PO DAILY depression 08/21 Unknown History extended release escitalopram oxalate 20 mg tablet 20 mg PO DAILY mood 08/21/24 Unkn own History fluoxetine 20 mg capsule 20 mg PO DAILY mood 08/21/24 Unkno wn History hydroxyzine HCl 25 mg tablet 25 mg PO TID PRN PRN anxiety 08/21 Unknown History levothyroxine 50 mcg tablet 50 mcg PO DAILY thyroid 08/21/24 U nknown History lisinopril 10 mg tablet 10 mg PO DAILY bp 08/21/24 Unknown History Allergy/AdvReac Type Severity Reaction Status Date / Time No Known Allergies Allergy Verified 08/21/24 00:07 Social History (System 08/08/18 @ 14:59 by Yoselyn Winchester) Smoking Status: Heavy Smoker (>10/day) ROS ROS Narrative Review of Systems: Constitutional: Patient denies fever or chills. Eyes: Patient denies changes in vision or discharge from eyes. ENT: Patient denies runny nose, sore throat or ear pain. Resp: Patient denies shortness of breath or cough. CV: Patient denies chest pain, palpitations or heart racing. GI: Patient admits to increasing abdominal distention but he denies pain, nausea, vomiting, constipation or diarrhea. : Patient denies dysuria or hematuria. MSK: Patient denies arthralgias or myalgias. Skin: Patient denies rash, abscess, wounds or jaundice. Psych: Patient admits to heightened anxiety but he denies SI or HI. Neuro: Patient admits to tremors in his upper extremities but he denies headache, paresthesias or focal neurologic deficits. Allergy: Patient denies lip swelling, tongue swelling or urticaria. Hematology: Patient denies easy bleeding or easy bruisability. Endocrinology: Patient denies polyuria, polydipsia, polyphagia or heat/cold intolerance. 14 point ROS otherwise negative except for positives noted above in HPI. Vital Signs Vital Signs Vital Signs: 08/21/24 00:05 Temperature 98 F Temperature Source Oral Pulse Rate 81 Respiratory Rate 16 Blood Pressure 136/90 H Blood Pressure M (more content not included)... Normal [facility] Hematocrit Auto (Bld) [Volum e fraction]Ordered By: Jay Crocker on 08-21-2024 Hematocrit (Bld) [Volume fraction] 37.4 % Low 40-54 [facility] Hemoglobin measurementOrdere d By: Jay Crocker on 08-21-2024 Hemoglobin (Bld) [Mass/Vol] 12.7 g/dL Low 13.0-16.5 [facility] Immature granulocytes/100 WB C Auto (Bld)Ordered By: Jay Crocker on 08-21-2024 Immature granulocytes/100 WBC (Bld) 0.800 % 0.0-0.9 [facility] Comment on above: IG% - Immature Granu locytes (promyelocytes, myelocytes and metamyelocytes) > 1% indicates that a LEFT SHIFT is Present. International normalized rat io (INR) calculationOrdered By: Julito Dela Cruz on 08-21-2024 INR Coag (Bld) [Relative time] 1.0 {INR} [facility] Laboratory - Chemistry and C hemistry - challengeOrdered By: Jay Crocker on 08-21-2024 AST [Catalytic activity/Vol] 20 U/L <38 [facility] Lymphocytes Auto (Unsp spec) [#/Vol]Ordered By: Jay Crocker on 08-21-2024 Lymphocytes (Bld) [#/Vol] 1.75 10*3/uL 0.83-4.51 [facility] Lymphocytes/100 WBC Auto (Un sp spec)Ordered By: Jay Crocker on 08-21-2024 Lymphocytes/100 WBC (Bld) 22.9 % 19-41 [facility] MCV (mean corpuscular volume ) determinationOrdered By: Jay Crocker on 08-21-2024 MCV (RBC) [Entitic vol] 96.6 fL High 80-94 [facility] Magnesiumon 08-21-2024 Magnesium [Mass/Vol] 2.0 mg/dL Normal 1.5-2.2 [facility] Comment on above: Performed By: #### L 501.5200 #### [facility] [address] [place], [address] Magnesium (Unsp spec) [Mass/ Vol]Ordered By: Julito Dela Cruz on 08-21-2024 Magnesium [Mass/Vol] 2.0 mg/dL 1.5-2.2 [facility] Mean corpuscular hemoglobin (MCH) determinationOrdered By: Jay Crocker on 08-21-2024 MCH (RBC) [Entitic mass] 32.8 pg High 27.0-32.0 [facility] Mean corpuscular hemoglobin concentration (MCHC) determinationOrdered By: Jay Crocker on 08-21-2024 MCHC (RBC) [Mass/Vol] 34.0 g/dL 32-36 [facility] Mean platelet volume determi nationOrdered By: Jay Crocker on 08-21-2024 Platelet mean volume (Bld) [Entitic vol] 8.6 fL 6.2-12.0 [facility] Methadone, urineOrdered By: Jay Crocker on 08-21-2024 Urine Methadone Screen Negative < 300 ng/mL [facility] Monocyte percentageOrdered B y: Jay Crocker on 08-21-2024 Monocytes/100 WBC (Bld) 7.2 % 0-10 [facility] Neutrophil percentageOrdered By: Jay Crocker on 08-21-2024 Neutrophils/100 WBC (Bld) 66.5 % 47-70 [facility] No Panel InformationOrdered By: Jay Crocker on 08-21-2024 Urine Buprenorphine Qualitative Negative < 200 ng/mL [facility] Urine Oxycodone Screen Negative < 100 ng/mL [facility] Nucleated red blood cell per centageOrdered By: Jay Crocker on 08-21-2024 Nucleated RBC/100 WBC (Bld) [Ratio] 0.3 % 0-5 [facility] Phosphoruson 08-21-2024 Phosphate [Mass/Vol] 3.2 mg/dL Normal 2.7-4.5 [facility] Comment on above: Performed By: #### L 501.2158 #### [facility] [address] [place], [address] Platelet countOrdered By: Mary Crocker on 08-21-2024 Platelets (Bld) [#/Vol] 262 10*3/uL 150-450 [facility] Potassium (Unsp spec) [Mass/ Vol]Ordered By: Jay Crocker on 08-21-2024 Potassium [Moles/Vol] 4.4 mmol/L 3.3-5.1 [facility] Prothrombin Time w/INRon INR Coag (PPP) [Relative time] 1.0 {INR} Normal [facility] Comment on above: Performed By: #### L 501.9520, L300.3900 ####[facility] [address] [place], [address] PT Coag (PPP) [Time] 13.5 s Normal 11.7-14.9 [facility] Comment on above: Performed By: #### L 501.9520, L300.3900 ####[facility] [address] [place], [address] Prothrombin timeOrdered By: Julito Dela Cruz on 08-21-2024 PT Coag (PPP) [Time] 13.5 s 11.7-14.9 [facility] Quantitative urine opiates m easurementOrdered By: Jay Crocker on 08-21-2024 Opiates Ql (U) Negative < 300 ng/mL [facility] RBC Auto (Bld) [#/Vol]Ordere d By: Jay Crocker on 08-21-2024 RBC (Bld) [#/Vol] 3.87 10*6/uL Low 4.6-6.2 [facility] Serum creatinine measurement (mass/volume)Ordered By: Jay Crocker on 08-21-2024 Creatinine [Mass/Vol] 1.53 mg/dL High 0.70-1.20 [facility] Serum globulin measurementOr dered By: Jay Crocker on 08-21-2024 Globulin (S) [Mass/Vol] 3.3 g/dL 2.2-4.2 [facility] Serum glucose measurement (m ass/volume)Ordered By: Jay Crocker on 08-21-2024 Glucose [Mass/Vol] 94 mg/dL 70-99 [facility] Serum or plasma alanine urias otransferase (ALT) measurementOrdered By: Jay Crocker on 08-21-2024 ALT [Catalytic activity/Vol] 8 U/L <47 [facility] Serum or plasma albumin antonio urement (mass/volume)Ordered By: Jay Crocker on 08-21-2024 Albumin [Mass/Vol] 4.3 g/dL 3.5-5.0 [facility] Serum or plasma albumin/glob ulin mass ratioOrdered By: Jay Corcker on 08-21-2024 Albumin/Globulin [Mass ratio] 1.3 {ratio} 0.9-2.4 [facility] Serum or plasma alkaline syd sphatase measurementOrdered By: Jay Crocker on 08-21-2024 ALP [Catalytic activity/Vol] 87 U/L 40-129 [facility] Serum or plasma calcium antonio urement (mass/volume)Ordered By: Jay Crocker on 08-21-2024 Calcium [Mass/Vol] 9.1 mg/dL 7.6-11.0 [facility] Serum or plasma urea nitroge n measurement (mass/volume)Ordered By: Jay Crocker on 08-21-2024 Urea nitrogen [Mass/Vol] 25 mg/dL High 4-19 [facility] Sodium levelOrdered By: Meir Crocker on 08-21-2024 Sodium [Moles/Vol] 135 mmol/L 133-145 [facility] TSH DL <= 0.005 mIU/L QnOrde red By: Julito Dela Cruz on 08-21-2024 Thyroid Stimulating Hormone (TSH) 5.180 uIU/mL High 0.300-4.200 [facility] Thyroid Stim Hormone (TSH)on 08-21-2024 TSH 5.180 uIU/mL High 0.300-4.200 [facility] Comment on above: Performed By: #### L 501.9520, L300.3900 ####[facility] [address] [place], [place], [id number] Total proteinOrdered By: Mumtaz Crocker on 08-21-2024 Protein [Mass/Vol] 7.5 g/dL 5.9-8.4 [facility] Urine Drug Screen (VISTA)on 08-21-2024 AMPHETAMINES Negative Normal <1000 ng/mL [facility] Comment on above: Performed By: #### L 100.0100, L505.5000, L501.9100, L500.4050 #### [facility] [address] [place], [address] BARBITIURATES Negative Normal < 200 ng/mL [facility] Comment on above: Performed By: #### L 100.0100, L505.5000, L501.9100, L500.4050 #### [facility] [address] [place], [address] BENZODIAZIPINE Positive Normal < 200 ng/mL [facility] Comment on above: Result Comment: If c onfirmation testing is needed, a separate order will be required to send out testing to the reference laboratory. Performed By: #### L 100.0100, L505.5000, L501.9100, L500.4050 #### [facility] [address] [place], [address] BUP Ur Drug Scr Negative Normal < 200 ng/mL [facility] Comment on above: Performed By: #### L 100.0100, L505.5000, L501.9100, L500.4050 #### [facility] [address] [place], [address] COCAINE Negative Normal < 300 ng/mL [facility] Comment on above: Performed By: #### L 100.0100, L505.5000, L501.9100, L500.4050 #### [facility] [address] [place], [address] Fentanyl Negative Normal [facility] Comment on above: Performed By: #### L 100.0100, L505.5000, L501.9100, L500.4050 #### [facility] [address] [place], [address] METHADONE Negative Normal < 300 ng/mL [facility] Comment on above: Performed By: #### L 100.0100, L505.5000, L501.9100, L500.4050 #### [facility] [address] [place], [address] OPIATES Negative Normal < 300 ng/mL [facility] Comment on above: Performed By: #### L 100.0100, L505.5000, L501.9100, L500.4050 #### [facility] [address] [place], [address] OXYCODONE Negative Normal < 100 ng/mL [facility] Comment on above: Performed By: #### L 100.0100, L505.5000, L501.9100, L500.4050 #### [facility] [address] [place], [address] PCP Negative Normal < 25 ng/mL [facility] Comment on above: Performed By: #### L 100.0100, L505.5000, L501.9100, L500.4050 #### [facility] [address] [place], [address] THC Negative Normal < 50 ng/mL [facility] Comment on above: Performed By: #### L 100.0100, L505.5000, L501.9100, L500.4050 #### [facility] [address] [place], [address] Urine benzodiazepine levelOr dered By: Jay Crocker on 08-21-2024 Benzodiazepines Ql (U) Positive < 200 ng/mL [facility] Comment on above: If confirmation test ing is needed, a separate order will be required to send out testing to the reference laboratory. Urine cocaine levelOrdered B y: Jay Crocker on 08-21-2024 Cocaine Ql (U) Negative < 300 ng/mL [facility] Urine vrptq-4-emjndzecqwolva abinol (THC) measurementOrdered By: Jay Crocker on 08-21-2024 Cannabinoids Screen Ql (U) Negative < 50 ng/mL [facility] Urine phencyclidine (PCP) de tectionOrdered By: Jay Crocker on 08-21-2024 Phencyclidine Ql (U) Negative < 25 ng/mL [facility] White blood cell (WBC) count Ordered By: Jay Crocker on 08-21-2024 WBC (Bld) [#/Vol] 7.6 10*3/uL 4.4-11.0 [facility] fentaNYL Screen Ql (U)Ordere d By: Jay Crocker on 08-21-2024 Urine Fentanyl Screen Negative [facility] Absolute neutrophil countOrd ered By: Iris Potter on 07-30-2024 Neutrophils (Bld) [#/Vol] 4.2 10*3/uL 2.0-7.7 [facility] Anion gap in Serum or Plasma Ordered By: Iris Potter on 07-30-2024 Anion gap [Moles/Vol] 12 mmol/L 5-15 [facility] BUN/creatinine ratioOrdered By: Iris Potter on 07-30-2024 Urea nitrogen/Creatinine [Mass ratio] 10.8 mg/mg 10-20 [facility] Basophil percentageOrdered B y: Iris Potter on 07-30-2024 Basophils/100 WBC (Bld) 0.6 % 0-1 [facility] Bilirubin, totalOrdered By: Iris Potter on 07-30-2024 Bilirubin [Mass/Vol] 0.29 mg/dL 0.00-1.30 [facility] CBC W/Diff, Automatedon 07-14 Absolute Lymph 2.78 X10 3/uL Normal 0.83-4.51 [facility] Comment on above: Performed By: #### L 500.4050, L100.0100, L501.9520, L500.4100, L501.9985, L506.1001 ####[facility] [address] [place], [address] Absolute Neut 4.2 X10 3/uL Normal 2.0-7.7 [facility] Comment on above: Performed By: #### L 500.4050, L100.0100, L501.9520, L500.4100, L501.9985, L506.1001 ####[facility] [address] [place], [address] Basophils/100 WBC (Bld) 0.6 % Normal 0-1 [facility] Comment on above: Performed By: #### L 500.4050, L100.0100, L501.9520, L500.4100, L501.9985, L506.1001 ####[facility] [address] [place], [address] Eosinophils/100 WBC (Bld) 2.1 % Normal 0-5 [facility] Comment on above: Performed By: #### L 500.4050, L100.0100, L501.9520, L500.4100, L501.9985, L506.1001 ####[facility] [address] [place], [address] Erythrocyte distribution width (RBC) [Ratio] 13.6 % Normal 11.6-14.6 [facility] Comment on above: Performed By: #### L 500.4050, L100.0100, L501.9520, L500.4100, L501.9985, L506.1001 ####[facility] [address] [place], [address] Hematocrit (Bld) [Volume fraction] 40.5 % Normal 40-54 [facility] Comment on above: Performed By: #### L 500.4050, L100.0100, L501.9520, L500.4100, L501.9985, L506.1001 ####[facility] [address] [place], [address] Hemoglobin (Bld) [Mass/Vol] 13.2 g/dL Normal 13.0-16.5 [facility] Comment on above: Performed By: #### L 500.4050, L100.0100, L501.9520, L500.4100, L501.9985, L506.1001 ####[facility] [address] [place], [address] IG% 0.700 Normal 0.0-0.9 [facility] Comment on above: Result Comment: IG% - Immature Granulocytes (promyelocytes, myelocytes and metamyelocytes) > 1% indicates that a LEFT SHIFT is Present. Performed By: #### L 500.4050, L100.0100, L501.9520, L500.4100, L501.9985, L506.1001 ####[facility] [address] [place], [address] Lymphocytes/100 WBC (Bld) 34.2 % Normal 19-41 [facility] Comment on above: Performed By: #### L 500.4050, L100.0100, L501.9520, L500.4100, L501.9985, L506.1001 ####[facility] [address] [place], [address] MCH (RBC) [Entitic mass] 31.8 pg Normal 27.0-32.0 [facility] Comment on above: Performed By: #### L 500.4050, L100.0100, L501.9520, L500.4100, L501.9985, L506.1001 ####[facility] [address] [place], [address] MCHC (RBC) [Mass/Vol] 32.6 g/dL Normal 32-36 [facility] Comment on above: Performed By: #### L 500.4050, L100.0100, L501.9520, L500.4100, L501.9985, L506.1001 ####[facility] [address] [place], [address] MCV (RBC) [Entitic vol] 97.6 fL High 80-94 [facility] Comment on above: Performed By: #### L 500.4050, L100.0100, L501.9520, L500.4100, L501.9985, L506.1001 ####[facility] [address] [place], [address] Monocytes/100 WBC (Bld) 10.6 % High 0-10 [facility] Comment on above: Performed By: #### L 500.4050, L100.0100, L501.9520, L500.4100, L501.9985, L506.1001 ####[facility] [address] [place], [address] Neutrophils/100 WBC (Bld) 51.8 % Normal 47-70 [facility] Comment on above: Performed By: #### L 500.4050, L100.0100, L501.9520, L500.4100, L501.9985, L506.1001 ####[facility] [address] [place], [address] Nucleated RBC (Bld) [#/Vol] 0 10*3/uL Normal 0-5 [facility] Comment on above: Performed By: #### L 500.4050, L100.0100, L501.9520, L500.4100, L501.9985, L506.1001 ####[facility] [address] [place], [address] Platelet mean volume (Bld) [Entitic vol] 8.7 fL Normal 6.2-12.0 [facility] Comment on above: Performed By: #### L 500.4050, L100.0100, L501.9520, L500.4100, L501.9985, L506.1001 ####[facility] [address] [place], [address] Platelets (Bld) [#/Vol] 281 10*3/uL Normal 150-450 [facility] Comment on above: Performed By: #### L 500.4050, L100.0100, L501.9520, L500.4100, L501.9985, L506.1001 ####[facility] [address] [place], [address] RBC (Bld) [#/Vol] 4.15 10*6/uL Low 4.6-6.2 [facility] Comment on above: Performed By: #### L 500.4050, L100.0100, L501.9520, L500.4100, L501.9985, L506.1001 ####[facility] [address] [place], [address] RDW SD 49.0 fl High 35.1-43.9 [facility] Comment on above: Performed By: #### L 500.4050, L100.0100, L501.9520, L500.4100, L501.9985, L506.1001 ####[facility] [address] [place], [address] WBC (Bld) [#/Vol] 8.1 10*3/uL Normal 4.4-11.0 [facility] Comment on above: Performed By: #### L 500.4050, L100.0100, L501.9520, L500.4100, L501.9985, L506.1001 ####[facility] [address] [place], [address] Absolute Neut Normal 2.0-7.7 [facility] Comment on above: Order Comment: Order Date: 07/06/24 Order Info: 0184-1 - CBCD Result Comment: DUPL ICATE ORDERS Performed By: #### L 100.0100, L500.4100 #### [facility] [address] [place], [address] HCT Normal 40-54 [facility] Comment on above: Order Comment: Order Date: 07/06/24 Order Info: 0184-1 - CBCD Result Comment: DUPL ICATE ORDERS Performed By: #### L 100.0100, L500.4100 #### [facility] [address] [place], [address] HGB Normal 13.0-16.5 [facility] Comment on above: Order Comment: Order Date: 07/06/24 Order Info: 0184-1 - CBCD Result Comment: DUPL ICATE ORDERS Performed By: #### L 100.0100, L500.4100 #### [facility] [address] [place], [address] MCH Normal 27.0-32.0 [facility] Comment on above: Order Comment: Order Date: 07/06/24 Order Info: [id number] - CBCD Result Comment: DUPL ICATE ORDERS Performed By: #### L 100.0100, L500.4100 #### [facility] [address] [place], [address] MCHC Normal 32-36 [facility] Comment on above: Order Comment: Order Date: 07/06/24 Order Info: 0184- - CBCD Result Comment: DUPL ICATE ORDERS Performed By: #### L 100.0100, L500.4100 #### [facility] [address] [place], [address] MCV Normal 80-94 [facility] Comment on above: Order Comment: Order Date: 07/06/24 Order Info: 0184-1 - CBCD Result Comment: DUPL ICATE ORDERS Performed By: #### L 100.0100, L500.4100 #### [facility] [address] [place], [address] NEUT% Normal 47-70 [facility] Comment on above: Order Comment: Order Date: 07/06/24 Order Info: [id number] - CBCD Result Comment: DUPL ICATE ORDERS Performed By: #### L 100.0100, L500.4100 #### [facility] [address] [place], [address] PLT Normal 150-450 [facility] Comment on above: Order Comment: Order Date: 07/06/24 Order Info: 0184-1 - CBCD Result Comment: DUPL ICATE ORDERS Performed By: #### L 100.0100, L500.4100 #### [facility] [address] [place], [address] RBC Normal 4.6-6.2 [facility] Comment on above: Order Comment: Order Date: 07/06/24 Order Info: 018- - CBCD Result Comment: DUPL ICATE ORDERS Performed By: #### L 100.0100, L500.4100 #### [facility] [address] [place], [address] RDW CV Normal 11.6-14.6 [facility] Comment on above: Order Comment: Order Date: 07/06/24 Order Info: 018- - CBCD Result Comment: DUPL ICATE ORDERS Performed By: #### L 100.0100, L500.4100 #### [facility] [address] [place], [address] RDW SD Normal 35.1-43.9 [facility] Comment on above: Order Comment: Order Date: 07/06/24 Order Info: 0184- - CBCD Result Comment: DUPL ICATE ORDERS Performed By: #### L 100.0100, L500.4100 #### [facility] [address] [place], [address] WBC Normal 4.4-11.0 [facility] Comment on above: Order Comment: Order Date: 07/06/24 Order Info: [id number] - CBCD Result Comment: DUPL ICATE ORDERS Performed By: #### L 100.0100, L500.4100 #### [facility] [address] [place], [place], [address] Calculated very low density lipoprotein (VLDL) cholesterol measurementOrdered By: Iris Potter on 07-30-2024 VLDL Cholesterol 37 mg/dL 5-40 [facility] Carbon dioxide, total [Moles /volume] in Central venous bloodOrdered By: Iris Potter on 07-30-2024 CO2 [Moles/Vol] 24.7 mmol/L 21.0-32.0 [facility] Chloride assayOrdered By: Aldo Potter on 07-30-2024 Chloride [Moles/Vol] 101 mmol/L 98-108 [facility] Comprehensive Metabolic Prof ilon 07-30-2024 Albumin [Mass/Vol] 4.4 g/dL Normal 3.5-5.0 [facility] Comment on above: Performed By: #### L 500.4050, L100.0100, L501.9520, L500.4100, L501.9985, L506.1001 ####[facility] [address] [place], [address] Albumin/Globulin [Mass ratio] 1.3 {ratio} Normal 0.9-2.4 [facility] Comment on above: Performed By: #### L 500.4050, L100.0100, L501.9520, L500.4100, L501.9985, L506.1001 ####[facility] [address] [place], [address] ALK PHOS 84 U/L Normal 40-129 [facility] Comment on above: Performed By: #### L 500.4050, L100.0100, L501.9520, L500.4100, L501.9985, L506.1001 ####[facility] [address] [place], [place], [address] ALT [Catalytic activity/Vol] 9 U/L Normal <=46 [facility] Comment on above: Performed By: #### L 500.4050, L100.0100, L501.9520, L500.4100, L501.9985, L506.1001 ####[facility] [address] [place], [address] AST [Catalytic activity/Vol] 18 U/L Normal <=37 [facility] Comment on above: Performed By: #### L 500.4050, L100.0100, L501.9520, L500.4100, L501.9985, L506.1001 ####[facility] [address] [place], [address] Bilirubin [Mass/Vol] 0.29 mg/dL Normal 0.00-1.30 [facility] Comment on above: Performed By: #### L 500.4050, L100.0100, L501.9520, L500.4100, L501.9985, L506.1001 ####[facility] [address] [place], [address] BUN/CRE 10.8 RATIO Normal 10-20 [facility] Comment on above: Performed By: #### L 500.4050, L100.0100, L501.9520, L500.4100, L501.9985, L506.1001 ####[facility] [address] [place], [address] Calcium [Mass/Vol] 9.4 mg/dL Normal 7.6-11.0 [facility] Comment on above: Performed By: #### L 500.4050, L100.0100, L501.9520, L500.4100, L501.9985, L506.1001 ####[facility] [address] [place], [address] Chloride [Moles/Vol] 101 mmol/L Normal 98-108 [facility] Comment on above: Performed By: #### L 500.4050, L100.0100, L501.9520, L500.4100, L501.9985, L506.1001 ####[facility] [address] [place], [address] CO2 [Moles/Vol] 24.7 mmol/L Normal 21.0-32.0 [facility] Comment on above: Performed By: #### L 500.4050, L100.0100, L501.9520, L500.4100, L501.9985, L506.1001 ####[facility] [address] [place], [address] Creatinine [Mass/Vol] 1.65 mg/dL High 0.70-1.20 [facility] Comment on above: Performed By: #### L 500.4050, L100.0100, L501.9520, L500.4100, L501.9985, L506.1001 ####[facility] [address] [place], [address] GAP 12 Normal 5-15 [facility] Comment on above: Performed By: #### L 500.4050, L100.0100, L501.9520, L500.4100, L501.9985, L506.1001 ####[facility] [address] [place], [address] GFR/1.73 sq M.predicted among non-blacks MDRD (S/P/Bld) [Vol rate/Area] 48 mL/min/{1.73_m2} Low >60 [facility] Comment on above: Result Comment: mL/m in/1.73m2 CKD-EPI Creatinine Equation (2020) Performed By: #### L 500.4050, L100.0100, L501.9520, L500.4100, L501.9985, L506.1001 ####[facility] [address] [place], [address] Globulin (S) [Mass/Vol] 3.4 g/dL Normal 2.2-4.2 [facility] Comment on above: Performed By: #### L 500.4050, L100.0100, L501.9520, L500.4100, L501.9985, L506.1001 ####[facility] [address] [place], [address] Glucose [Mass/Vol] 109 mg/dL High 70-99 [facility] Comment on above: Performed By: #### L 500.4050, L100.0100, L501.9520, L500.4100, L501.9985, L506.1001 ####[facility] [address] [place], [address] Potassium [Moles/Vol] 4.9 mmol/L Normal 3.3-5.1 [facility] Comment on above: Performed By: #### L 500.4050, L100.0100, L501.9520, L500.4100, L501.9985, L506.1001 ####[facility] [address] [place], [address] Sodium [Moles/Vol] 138 mmol/L Normal 133-145 [facility] Comment on above: Performed By: #### L 500.4050, L100.0100, L501.9520, L500.4100, L501.9985, L506.1001 ####[facility] [address] [place], [address] T PROT 7.8 g/dL Normal 5.9-8.4 [facility] Comment on above: Performed By: #### L 500.4050, L100.0100, L501.9520, L500.4100, L501.9985, L506.1001 ####[facility] [address] [place], [address] Urea nitrogen [Mass/Vol] 18 mg/dL Normal 4-19 [facility] Comment on above: Performed By: #### L 500.4050, L100.0100, L501.9520, L500.4100, L501.9985, L506.1001 ####[facility] [address] [place], [address] ALB Normal 3.5-5.0 [facility] Comment on above: Order Comment: Order Date: 07/06/24Order Info: 86-1 - CMPOrder Info: [id number] - LIPIDOrder Date: 06/05/24Order Info: [id number] - TSH Result Comment: DUPL ICATE ORDERS Performed By: #### L 500.4050 ####[facility] [address] [place], [address] ALK PHOS Normal 40-129 [facility] Comment on above: Order Comment: Order Date: 07/06/24Order Info: [id number]- - CMPOrder Info: - LIPIDOrder Date: 06/05/24Order Info: [id number] - TSH Result Comment: DUPL ICATE ORDERS Performed By: #### L 500.4050 ####[facility] [address] [place], [address] ALT Normal <=46 [facility] Comment on above: Order Comment: Order Date: 07/06/24Order Info: [id number]- - CMPOrder Info: - LIPIDOrder Date: 06/05/24Order Info: [id number] - TSH Result Comment: DUPL ICATE ORDERS Performed By: #### L 500.4050 ####[facility] [address] [place], [address] AST Normal <=37 [facility] Comment on above: Order Comment: Order Date: 07/06/24Order Info: [id number] - CMPOrder Info: [id number] - LIPIDOrder Date: 06/05/24Order Info: [id number] - TSH Result Comment: DUPL ICATE ORDERS Performed By: #### L 500.4050 ####[facility] [address] [place], [address] BUN Normal 4-19 [facility] Comment on above: Order Comment: Order Date: 07/06/24Order Info: [id number] - CMPOrder Info: [id number] - LIPIDOrder Date: 06/05/24Order Info: [id number] - TSH Result Comment: DUPL ICATE ORDERS Performed By: #### L 500.4050 ####[facility] [address] [place], [address] BUN/CRE Normal 10-20 [facility] Comment on above: Order Comment: Order Date: 07/06/24Order Info: 86-1 - CMPOrder Info: [id number] - LIPIDOrder Date: 06/05/24Order Info: [id number] - TSH Result Comment: DUPL ICATE ORDERS Performed By: #### L 500.4050 ####[facility] [address] [place], [address] Calcium Normal 7.6-11.0 [facility] Comment on above: Order Comment: Order Date: 07/06/24Order Info: 86-1 - CMPOrder Info: [id number] - LIPIDOrder Date: 06/05/24Order Info: [id number] - TSH Result Comment: DUPL ICATE ORDERS Performed By: #### L 500.4050 ####[facility] [address] [place], [address] CL Normal 98-108 [facility] Comment on above: Order Comment: Order Date: 07/06/24Order Info: 86-1 - CMPOrder Info: [id number] - LIPIDOrder Date: 06/05/24Order Info: [id number] - TSH Result Comment: DUPL ICATE ORDERS Performed By: #### L 500.4050 ####[facility] [address] [place], [address] CO2 Normal 21.0-32.0 [facility] Comment on above: Order Comment: Order Date: 07/06/24Order Info: 86-1 - CMPOrder Info: [id number] - LIPIDOrder Date: 06/05/24Order Info: [id number] - TSH Result Comment: DUPL ICATE ORDERS Performed By: #### L 500.4050 ####[facility] [address] [place], [address] CREAT,SERUM Normal 0.70-1.20 [facility] Comment on above: Order Comment: Order Date: 07/06/24Order Info: 86-1 - CMPOrder Info: [id number] - LIPIDOrder Date: 06/05/24Order Info: [id number] - TSH Result Comment: DUPL ICATE ORDERS Performed By: #### L 500.4050 ####[facility] [address] [place], [address] eGFR Normal >60 [facility] Comment on above: Order Comment: Order Date: 07/06/24Order Info: 86-1 - CMPOrder Info: [id number] - LIPIDOrder Date: 06/05/24Order Info: [id number] - TSH Result Comment: DUPL ICATE ORDERS Performed By: #### L 500.4050 ####[facility] [address] [place], [address] GAP Normal 5-15 [facility] Comment on above: Order Comment: Order Date: 07/06/24Order Info: 86-1 - CMPOrder Info: [id number] - LIPIDOrder Date: 06/05/24Order Info: [id number] - TSH Result Comment: DUPL ICATE ORDERS Performed By: #### L 500.4050 ####[facility] [address] [place], [address] GLU Normal 70-99 [facility] Comment on above: Order Comment: Order Date: 07/06/24Order Info: [id number] - CMPOrder Info: [id number] - LIPIDOrder Date: 06/05/24Order Info: [id number] - TSH Result Comment: DUPL ICATE ORDERS Performed By: #### L 500.4050 ####[facility] [address] [place], [address] Potassium Normal 3.3-5.1 [facility] Comment on above: Order Comment: Order Date: 07/06/24Order Info: [id number] - CMPOrder Info: [id number] - LIPIDOrder Date: 06/05/24Order Info: [id number] - TSH Result Comment: DUPL ICATE ORDERS Performed By: #### L 500.4050 ####[facility] [address] [place], [address] T BILI Normal 0.00-1.30 [facility] Comment on above: Order Comment: Order Date: 07/06/24Order Info: [id number] - CMPOrder Info: [id number] - LIPIDOrder Date: 06/05/24Order Info: [id number] - TSH Result Comment: DUPL ICATE ORDERS Performed By: #### L 500.4050 ####[facility] [address] [place], [address] T PROT Normal 5.9-8.4 [facility] Comment on above: Order Comment: Order Date: 07/06/24Order Info: 86-1 - CMPOrder Info: [id number] - LIPIDOrder Date: 06/05/24Order Info: [id number] - TSH Result Comment: DUPL ICATE ORDERS Performed By: #### L 500.4050 ####[facility] [address] [place], [address] Comprehensive Metabolic Profil Normal 133-145 [facility] Comment on above: Order Comment: Order Date: 07/06/24Order Info: [id number] - CMPOrder Info: [id number] - LIPIDOrder Date: 06/05/24Order Info: [id number] - TSH Result Comment: DUPL ICATE ORDERS Performed By: #### L 500.4050 ####[facility] [address] [place], [address] Eosinophil percentageOrdered By: Iris Potter on 07-30-2024 Eosinophils/100 WBC (Bld) 2.1 % 0-5 [facility] Erythrocyte distribution wid th ratioOrdered By: Iris Potter on 07-30-2024 Erythrocyte distribution width (RBC) [Ratio] 13.6 % 11.6-14.6 [facility] Erythrocyte distribution wid th standard deviationOrdered By: Iris Potter on 07-30-2024 Erythrocyte distribution width (RBC) [Entitic vol] 49.0 fL High 35.1-43.9 [facility] GFR/1.73 sq M.predicted moreno g non-blacks MDRD (S/P/Bld) [Vol rate/Area]Ordered By: Iris Potter on 07-30-2024 Estimated GFR (MDRD) Non-Af Amer 48 Low >60 [facility] Comment on above: mL/min/1.73m2 CKD-EP I Creatinine Equation (2020) Hematocrit Auto (Bld) [Volum e fraction]Ordered By: [facility] Tariq on 07-30-2024 Hematocrit (Bld) [Volume fraction] 40.5 % 40-54 [facility] Hemoglobin A1con 07-30-2024 HbA1c (Bld) [Mass fraction] 5.7 % Normal <=5.6 [facility] Comment on above: Performed By: #### L 500.4050, L100.0100, L501.9520, L500.4100, L501.9985, L506.1001 ####[facility] [address] [place], [address] Hemoglobin A1c percentageOrd ered By: Iris Potter on 07-30-2024 HbA1c (Bld) [Mass fraction] 5.7 % >5.7 [facility] Hemoglobin measurementOrdere d By: Iris Potter on 07-30-2024 Hemoglobin (Bld) [Mass/Vol] 13.2 g/dL 13.0-16.5 [facility] Immature granulocytes/100 WB C Auto (Bld)Ordered By: Iris Potter on 07-30-2024 Immature granulocytes/100 WBC (Bld) 0.700 % 0.0-0.9 [facility] Comment on above: IG% - Immature Granu locytes (promyelocytes, myelocytes and metamyelocytes) > 1% indicates that a LEFT SHIFT is Present. L506.1001on 07-30-2024 Vitamin D 25-OH 7.0 ng/mL Low 30-100 [facility] Comment on above: Result Comment: [place] min D Status Deficiency: <20 ng/mL (50nmol/L) Insufficiency: 20-30 ng/mL (50-75 nmol/L) Sufficiency: 30-100 ng/mL (75-250 nmol/L) Toxicity: >100 ng/mL (>250 nmol/L) Performed By: #### L 500.4050, L100.0100, L501.9520, L500.4100, L501.9985, L506.1001 ####[facility] [address] [place], [place], [address] LDL calc ser/plasOrdered By: Iris Potter on 07-30-2024 LDL Cholesterol, Calculated 101 mg/dL [facility] Comment on above: Siaxkkibtw=359-477 m g/dL & Higher Doho=028 mg/dL or greater Laboratory - Chemistry and C hemistry - challengeOrdered By: Iris Potter on 07-30-2024 AST [Catalytic activity/Vol] 18 U/L <38 [facility] Lipid Profileon 07-30-2024 CHOL:HDL 3.50 Normal [facility] Comment on above: Performed By: #### L 500.4050, L100.0100, L501.9520, L500.4100, L501.9985, L506.1001 ####[facility] [address] [place], [place], [address] Cholesterol [Mass/Vol] 192 mg/dL Normal <=200 [facility] Comment on above: Result Comment: Chol esterol level, Desirable <200 mg/dL Borderline high cholesterol 200-239 mg/dL High cholesterol >=240 mg/dL Recommendations of the NCEP Adult Treatment Panel for the following risk-cutoff thresholds for the [place] population. Performed By: #### L 500.4050, L100.0100, L501.9520, L500.4100, L501.9985, L506.1001 ####[facility] [address] [place], [address] Cholesterol in HDL [Mass/Vol] 55 mg/dL Normal [facility] Comment on above: Result Comment: Beti onal Cholesterol Education Program (NCEP) guidelines: <40 mg/dL: Low HDL-cholesterol (major risk factor for CHD) >= 60 mg/dL: High HDL-cholesterol (negative risk factor for CHD) HDL-cholesterol is affected by a number of factors, e.g. smoking, exercise, hormones, sex and age. Performed By: #### L 500.4050, L100.0100, L501.9520, L500.4100, L501.9985, L506.1001 ####[facility] [address] [place], [address] Cholesterol in LDL [Mass/Vol] 101 mg/dL Normal [facility] Comment on above: Result Comment: Bord dcymlo=139-607 mg/dL Higher Zutg=487 mg/dL or greater Performed By: #### L 500.4050, L100.0100, L501.9520, L500.4100, L501.9985, L506.1001 ####[facility] [address] [place], [address] Cholesterol in VLDL [Mass/Vol] 37 mg/dL Normal 5-40 [facility] Comment on above: Performed By: #### L 500.4050, L100.0100, L501.9520, L500.4100, L501.9985, L506.1001 ####[facility] [address] [place], [address] Triglyceride [Mass/Vol] 183 mg/dL Normal [facility] Comment on above: Result Comment: The drugs N-Acetylcysteine and Metamizole may falsely depress this assay. Normal range: <150 mg/dL Borderline High: 150-199 mg/dL High: 200-499 mg/dL Very High: >500 mg/dL Performed By: #### L 500.4050, L100.0100, L501.9520, L500.4100, L501.9985, L506.1001 ####[facility] [address] [place], [address] CHOL Normal <=200 [facility] Comment on above: Order Comment: Order Date: 07/06/24 Order Info: [id number] - CMP Order Info: - LIPID Order Date: 06/05/24 Order Info: [id number] - TSH Result Comment: DUPL ICATE ORDERS Performed By: #### L 100.0100, L500.4100 #### [facility] [address] [place], [address] CHOL:HDL Normal [facility] Comment on above: Order Comment: Order Date: 07/06/24 Order Info: [id number] - CMP Order Info: - LIPID Order Date: 06/05/24 Order Info: [id number] - TSH Result Comment: DUPL ICATE ORDERS Performed By: #### L 100.0100, L500.4100 #### [facility] [address] [place], [address] CLDL Normal [facility] Comment on above: Order Comment: Order Date: 07/06/24 Order Info: [id number] - CMP Order Info: - LIPID Order Date: 06/05/24 Order Info: [id number] - TSH Result Comment: DUPL ICATE ORDERS Performed By: #### L 100.0100, L500.4100 #### [facility] [address] [place], [address] HDL Normal [facility] Comment on above: Order Comment: Order Date: 07/06/24 Order Info: [id number] - CMP Order Info: - LIPID Order Date: 06/05/24 Order Info: [id number] - TSH Result Comment: DUPL ICATE ORDERS Performed By: #### L 100.0100, L500.4100 #### [facility] [address] [place], [address] TRIG Normal [facility] Comment on above: Order Comment: Order Date: 07/06/24 Order Info: [id number] - CMP Order Info: [id number] - LIPID Order Date: 06/05/24 Order Info: 3016-3 - TSH Result Comment: DUPL ICATE ORDERS Performed By: #### L 100.0100, L500.4100 #### [facility] [address] [place], [address] VLDL Normal 5-40 [facility] Comment on above: Order Comment: Order Date: 07/06/24 Order Info: [id number] - CMP Order Info: [id number] - LIPID Order Date: 06/05/24 Order Info: [id number] - TSH Result Comment: DUPL ICATE ORDERS Performed By: #### L 100.0100, L500.4100 #### [facility] [address] [place], [address] Lymphocytes Auto (Unsp spec) [#/Vol]Ordered By: Iris Potter on 07-30-2024 Lymphocytes (Bld) [#/Vol] 2.78 10*3/uL 0.83-4.51 [facility] Lymphocytes/100 WBC Auto (Un sp spec)Ordered By: Iris Potter on 07-30-2024 Lymphocytes/100 WBC (Bld) 34.2 % 19-41 [facility] MCV (mean corpuscular volume ) determinationOrdered By: Iris oPtter on 07-30-2024 MCV (RBC) [Entitic vol] 97.6 fL High 80-94 [facility] Mean corpuscular hemoglobin (MCH) determinationOrdered By: Iris Potter on 07-30-2024 MCH (RBC) [Entitic mass] 31.8 pg 27.0-32.0 [facility] Mean corpuscular hemoglobin concentration (MCHC) determinationOrdered By: Iris Potter on 07-30-2024 MCHC (RBC) [Mass/Vol] 32.6 g/dL 32-36 [facility] Mean platelet volume determi nationOrdered By: Iris Potter on 07-30-2024 Platelet mean volume (Bld) [Entitic vol] 8.7 fL 6.2-12.0 [facility] Monocyte percentageOrdered B y: Iris Potter on 07-30-2024 Monocytes/100 WBC (Bld) 10.6 % High 0-10 [facility] Neutrophil percentageOrdered By: Iris Potter on 07-30-2024 Neutrophils/100 WBC (Bld) 51.8 % 47-70 [facility] Nucleated red blood cell per centageOrdered By: Iris Potter on 07-30-2024 Nucleated RBC/100 WBC (Bld) [Ratio] 0 % 0-5 [facility] Platelet countOrdered By: Aldo Potter on 07-30-2024 Platelets (Bld) [#/Vol] 281 10*3/uL 150-450 [facility] Potassium (Unsp spec) [Mass/ Vol]Ordered By: Iris Potter on 07-30-2024 Potassium [Moles/Vol] 4.9 mmol/L 3.3-5.1 [facility] RBC Auto (Bld) [#/Vol]Ordere d By: Iris Potter on 07-30-2024 RBC (Bld) [#/Vol] 4.15 10*6/uL Low 4.6-6.2 [facility] Screening total cholesterol/ high density lipoprotein (HDL) cholesterol ratioOrdered By: Iris Potter on 07-30-2024 Cholesterol.total/Chol esterol in HDL [Mass ratio] 3.50 {ratio} [facility] Serum creatinine measurement (mass/volume)Ordered By: Iris Potter on 07-30-2024 Creatinine [Mass/Vol] 1.65 mg/dL High 0.70-1.20 [facility] Serum globulin measurementOr dered By: Iris Potter on 07-30-2024 Globulin (S) [Mass/Vol] 3.4 g/dL 2.2-4.2 [facility] Serum glucose measurement (m ass/volume)Ordered By: Iris Potter on 07-30-2024 Glucose [Mass/Vol] 109 mg/dL High 70-99 [facility] Serum or plasma alanine urias otransferase (ALT) measurementOrdered By: Iris Potter on 07-30-2024 ALT [Catalytic activity/Vol] 9 U/L <47 [facility] Serum or plasma albumin antonio urement (mass/volume)Ordered By: Iris Potter on 07-30-2024 Albumin [Mass/Vol] 4.4 g/dL 3.5-5.0 [facility] Serum or plasma albumin/glob ulin mass ratioOrdered By: Iris Potter on 07-30-2024 Albumin/Globulin [Mass ratio] 1.3 {ratio} 0.9-2.4 [facility] Serum or plasma alkaline syd sphatase measurementOrdered By: Mariecathleen Tariq on 07-30-2024 ALP [Catalytic activity/Vol] 84 U/L 40-129 [facility] Serum or plasma calcium antonio urement (mass/volume)Ordered By: Iris Potter on 07-30-2024 Calcium [Mass/Vol] 9.4 mg/dL 7.6-11.0 [facility] Serum or plasma cholesterol in HDL measurement (mass/volume)Ordered By: Iris Potter on 07-30-2024 Cholesterol in HDL [Mass/Vol] 55 mg/dL >40 [facility] Comment on above: National Cholesterol Education Program (NCEP) guidelines:<40 mg/dL: Low HDL-cholesterol (major risk factor for CHD)>= 60 mg/dL: High HDL-cholesterol (negative risk factor for CHD)HDL-cholesterol is affected by a number of factors, e.g. smoking, exercise, hormones, sex and age. Serum or plasma cholesterol measurement (mass/volume)Ordered By: Iris Potter on 07-30-2024 Cholesterol [Mass/Vol] 192 mg/dL <201 [facility] Comment on above: Cholesterol level, D esirable <200 mg/dLBorderline high cholesterol 200-239 mg/dLHigh cholesterol >=240 mg/dLRecommendations of the NCEP Adult Treatment Panel for the following risk-cutoff thresholds for the [place] population. Serum or plasma urea nitroge n measurement (mass/volume)Ordered By: Iris Potter on 07-30-2024 Urea nitrogen [Mass/Vol] 18 mg/dL 4-19 [facility] Sodium levelOrdered By: Marie Potter 07-30-2024 Sodium [Moles/Vol] 138 mmol/L 133-145 [facility] TSH DL <= 0.005 mIU/L QnOrde red By: Iris Potter on 07-30-2024 Thyroid Stimulating Hormone (TSH) 8.080 uIU/mL High 0.300-4.200 [facility] Thyroid Stim Hormone (TSH)on 07-30-2024 TSH 8.080 uIU/mL High 0.300-4.200 [facility] Comment on above: Performed By: #### L 500.4050, L100.0100, L501.9520, L500.4100, L501.9985, L506.1001 ####[facility] [address] [place], [place], [id number] Total proteinOrdered By: Dianelys Potter on 07-30-2024 Protein [Mass/Vol] 7.8 g/dL 5.9-8.4 [facility] Triglycerides measurementOrd ered By: Iris Potter on 07-30-2024 Triglyceride [Mass/Vol] 183 mg/dL <199 [facility] Comment on above: The drugs N-Acetylcy steine and Metamizole may falsely depress this assay. Normal range: <150 mg/dLBorderline High: 150-199 mg/dLHigh: 200-499 mg/dLVery High: >500 mg/dL Vitamin D, 25-hydroxyOrdered By: Iris Potter on 07-30-2024 Vitamin D 25-Hydroxy 7.0 ng/mL Low 30-100 [facility] Comment on above: Vitamin D StatusDefi ciency: <20 ng/mL (50nmol/L)Insufficiency: 20-30 ng/mL (50-75 nmol/L)Sufficiency: 30-100 ng/mL (75-250 nmol/L)Toxicity: >100 ng/mL (>250 nmol/L) White blood cell (WBC) count Ordered By: Iris Potter on 07-30-2024 WBC (Bld) [#/Vol] 8.1 10*3/uL 4.4-11.0 [facility] XR SPINE CERVICAL W/ OBLIQUE S 5 VIEWSon 06-11-2024 XR SPINE CERVICAL W/ OBLIQUES 5 VIEWS ORIGINAL EXAMINATION: FIVE XRAY VIEWS OF THE CERVICAL SPINE06/09/2024 1:46 pm AP lateral obliques open-mouth five views COMPARISON: None HISTORY: ORDERING SYSTEM PROVIDED HISTORY: Reason for Exam: PAIN, neck pain for 8 months FINDINGS: Lateral view shows normal cervical alignment. Mild wedging of the C5 vertebra is considered nonacute and there is some marginal spurring to support this. No significant disc space narrowing. Multilevel mild facet arthropathy more on the right side. No high-grade osseous foraminal stenosis suspected, right foraminal evaluation is less than optimal. Normal C1-C2 and prevertebral soft tissue space. Lung apices are clear. IMPRESSION: Mild degenerative changes. No acute findings. Interpreted by: Michael Guido MD Preliminary Report By: Michael Guido MD Electronically signed By Michael Guido MD Dictated Date: 06/11/2024 2:28:37 PM Prelim Date: 06/11/2024 2:29:48 PM Sign Date: 06/11/2024 2:29:48 PM Ordering Provider: [facility] MAIN Cerv Spine 4 or 5 Viewson Cerv Spine 4 or 5 Views [facility] Imaging Services [address] [place] [address] Cerv Spine 4 or 5 Views MR#: [id number] Acct: [id number] Name: CARROLL BUTTS Rep #: [id number] : 1970 M 53 From: Conrad Clark MD PCP: Dr. Iris Potter MD Status: REG CLI Study: Cerv Spine 4 or 5 Views Date of Exam: 12/14/23 Exam# [id number] Ordering Dr: Iris Potter MD [id number] STUDY: X-RAY - CERVICAL SPINE REASON FOR EXAM: Male, 53 years old. Chronic neck pain TECHNIQUE: 5 view(s) of the cervical spine were obtained. COMPARISON: None FINDINGS: Normal anterior atlantoaxial articulation. Normal odontoid process. Normal cervical lordosis. 2 mm retrolisthesis of C5 on C6. There is multi-level endplate spondylosis. There is multi-level degenerative disc disease with multilevel disc space narrowing. There is multi-level osseous foraminal stenosis. The soft tissue structures are unremarkable. RAD/Cerv Spine 4 or 5 Views IMPRESSION: Degenerative disc disease. MRI may be useful. Electronically Signed: Conrad Clark MD at 8:49 EDT , CC: Dr. Iris Potter MD Design Assistant: Signed Normal [facility] .Auto Diffon 01-03-2019 Ammonia (P) [Mass/Vol] 1.30 10 3/mcL Normal 0.09-1.40 [facility] ([place]) Comment on above: Performed By: #### C BC, ADIFF, ANEU, BMP, GFR #### [address] [address] Basophils (Bld) [#/Vol] 0.10 10 3/mcL Normal 0.00-0.27 [facility] ([place]) Comment on above: Performed By: #### C BC, ADIFF, ANEU, BMP, GFR #### [address] [address] Basophils/100 WBC (Bld) 0.6 % Normal 0.0-2.5 [facility] ([place]) Comment on above: Performed By: #### C BC, ADIFF, ANEU, BMP, GFR #### [address] [address] Eosinophils (Bld) [#/Vol] 0.00 10 3/mcL Normal 0.00-0.65 [facility] ([place]) Comment on above: Performed By: #### C BC, ADIFF, ANEU, BMP, GFR #### [address] [address] Eosinophils/100 WBC (Bld) 0.2 % Normal 0.0-6.0 [facility] ([place]) Comment on above: Performed By: #### C BC, ADIFF, ANEU, BMP, GFR #### [address] [address] Lymphocytes (Bld) [#/Vol] 1.80 10 3/mcL Normal 0.90-4.32 [facility] ([place]) Comment on above: Performed By: #### C BC, ADIFF, ANEU, BMP, GFR #### [address] [address] Lymphocytes/100 WBC (Bld) 14.2 % Low 20.0-40.0 [facility] ([place]) Comment on above: Performed By: #### C BC, ADIFF, ANEU, BMP, GFR #### [address] [address] Monocytes/100 WBC (Bld) 10.7 % Normal 2.0-13.0 [facility] ([place]) Comment on above: Performed By: #### C BC, ADIFF, ANEU, BMP, GFR #### [address] [address] Neutrophils/100 WBC (Bld) 74.3 % Normal 50.0-75.0 [facility] ([place]) Comment on above: Performed By: #### C BC, ADIFF, ANEU, BMP, GFR #### [address] [address] .GFRon 01-03-2019 GFR >60 Normal [facility] ([place]) Comment on above: Result Comment: GFR Population mean for , Non- Americans Ages 20-29 = 116 mL/min/1.73 sq.m. Ages 30-39 = 107 mL/min/1.73 sq.m. Ages 40-49 = 99 mL/min/1.73 sq.m. Ages 50-59 = 93 mL/min/1.73 sq.m. Ages 60-69 = 85 mL/min/1.73 sq.m. Ages 70+ = 75 mL/min/1.73 sq.m. Chronic Kidney Disease: Less than 60 mL/min/1.73 square meters End Stage Renal Disease: Less than 15 mL/min/1.73 square meters Performed By: #### C BC, ADIFF, ANEU, BMP, GFR #### [address] [address] GFR Non- >60 Normal [facility] ([place]) Comment on above: Result Comment: GFR Population mean for , Non- Americans Ages 20-29 = 116 mL/min/1.73 sq.m. Ages 30-39 = 107 mL/min/1.73 sq.m. Ages 40-49 = 99 mL/min/1.73 sq.m. Ages 50-59 = 93 mL/min/1.73 sq.m. Ages 60-69 = 85 mL/min/1.73 sq.m. Ages 70+ = 75 mL/min/1.73 sq.m. Chronic Kidney Disease: Less than 60 mL/min/1.73 square meters End Stage Renal Disease: Less than 15 mL/min/1.73 square meters Performed By: #### C BC, ADIFF, ANEU, BMP, GFR #### [address] [address] .NEUABSon 01-03-2019 Neutrophils (Bld) [#/Vol] 9.30 10 3/mcL High 2.25-8.10 [facility] ([place]) Comment on above: Performed By: #### C BC, ADIFF, ANEU, BMP, GFR #### [address] [address] BMPon 01-03-2019 Creatinine [Mass/Vol] 1.22 mg/dL Normal 0.60-1.40 [facility] ([place]) Comment on above: Performed By: #### C BC, ADIFF, ANEU, BMP, GFR #### [address] [address] Urea nitrogen/Creatinine [Mass ratio] 14.8 ratio Normal 10.0-22.0 [facility] (MD) Comment on above: Performed By: #### C BC, ADIFF, ANEU, BMP, GFR #### [address] [address] Calcium [Mass/Vol] 9.8 mg/dL Normal 8.4-10.1 [facility] (MD) Comment on above: Performed By: #### C BC, ADIFF, ANEU, BMP, GFR #### [address] [address] Chloride [Moles/Vol] 103 mmol/L Normal 98-110 [facility] ([place]) Comment on above: Performed By: #### C BC, ADIFF, ANEU, BMP, GFR #### [address] [address] CO2 [Moles/Vol] 27 mmol/L Normal 22-32 [facility] ([place]) Comment on above: Performed By: #### C BC, ADIFF, ANEU, BMP, GFR #### [address] [address] Electrolyte Balance 10.0 mEq/L Normal 4.0-15.0 [facility] (MD) Comment on above: Performed By: #### C BC, ADIFF, ANEU, BMP, GFR #### [address] [address] Glucose [Mass/Vol] 143 mg/dL High 70-110 [facility] (MD) Comment on above: Performed By: #### C BC, ADIFF, ANEU, BMP, GFR #### [address] [address] Potassium [Moles/Vol] 3.4 mmol/L Low 3.5-5.0 [facility] (MD) Comment on above: Performed By: #### C BC, ADIFF, ANEU, BMP, GFR #### [address] [address] Sodium [Moles/Vol] 140 mmol/L Normal 136-145 [facility] (MD) Comment on above: Performed By: #### C BC, ADIFF, ANEU, BMP, GFR #### [address] [address] Urea nitrogen [Mass/Vol] 18.0 mg/dL Normal 8.0-22.0 [facility] ([place]) Comment on above: Performed By: #### C BC, ADIFF, ANEU, BMP, GFR #### [address] [address] CBCon 01-03-2019 Erythrocyte distribution width (RBC) [Ratio] 13.4 % Normal 11.5-15.5 [facility] ([place]) Comment on above: Performed By: #### C BC, ADIFF, ANEU, BMP, GFR #### [place] [id number] Hematocrit (Bld) [Volume fraction] 43.9 % Normal 40.0-52.0 [facility] ([place]) Comment on above: Performed By: #### C BC, ADIFF, ANEU, BMP, GFR #### [place] [id number] Hemoglobin (Bld) [Mass/Vol] 14.8 G/dL Normal 13.0-17.5 [facility] ([place]) Comment on above: Performed By: #### C BC, ADIFF, ANEU, BMP, GFR #### [place] [address] MCH (RBC) [Entitic mass] 32.8 pg Normal 27.0-33.0 [facility] ([place]) Comment on above: Performed By: #### C BC, ADIFF, ANEU, BMP, GFR #### [place] [id number] MCHC (RBC) [Mass/Vol] 33.7 G/dL Normal 32.0-36.0 [facility] (MD) Comment on above: Performed By: #### C BC, ADIFF, ANEU, BMP, GFR #### [place] [id number] MCV (RBC) [Entitic vol] 97.4 fL Normal 81.0-100.0 [facility] ([place]) Comment on above: Performed By: #### C BC, ADIFF, ANEU, BMP, GFR #### [place] [id number] Platelet mean volume (Bld) [Entitic vol] 7.8 fL Normal 6.4-10.5 [facility] (MD) Comment on above: Performed By: #### C BC, ADIFF, ANEU, BMP, GFR #### [address] [address] Platelets (Bld) [#/Vol] 297 10 3/mcL Normal 150-450 [facility] (MD) Comment on above: Performed By: #### C BC, ADIFF, ANEU, BMP, GFR #### [address] [address] RBC (Bld) [#/Vol] 4.51 10 6/mcL Normal 4.50-6.00 [facility] (MD) Comment on above: Performed By: #### C BC, ADIFF, ANEU, BMP, GFR #### [place] [id number] [address] [place] [address] WBC (Bld) [#/Vol] 12.60 10 3/mcL High 4.50-10.80 [facility] (MD) Comment on above: Performed By: #### C BC, ADIFF, ANEU, BMP, GFR #### [address] [address] [address] ABDOMEN/PELVIS W/O CONTRA STon 01-03-2019 CT ABDOMEN/PELVIS W/O CONTRAST ORIGINAL COMPUTED TOMOGRAPHY OF THE ABDOMEN AND PELVIS WITHOUT IV CONTRAST (STONE PROTOCOL) Clinical Statement: BILATERAL flank pain COMPARISON: None. This exam was performed according to our departmental dose optimization program, and includes the following measures where applicable: automated exposure control, adjustment of the mAs and/or kVp according to patient size and/or exam, and an iterative reconstruction algorithm. FINDINGS: The renal stone protocol was utilized. The lack of intravenous and oral contrast will limit evaluation of soft tissue abnormalities in the abdominal viscera. The kidneys are normal in size and shape. Perinephric stranding is present bilaterally. Small intrarenal stones are present, more numerous in the RIGHT kidney. Moderate RIGHT ureteropelvicaliectasis is present extending to a 4 mm stone within the ureter at the L3 level. Mild LEFT pelvicaliectasis extends to a 4.5 mm stone at the L4 level. The ureters are normal in course. Urinary bladder is unremarkable. No pelvic mass or free fluid is seen. Prostate gland is normal in size. Calcified phleboliths are present in the pelvis. No abnormality is seen in the visualized portions of the unenhanced liver, gallbladder, spleen, pancreas or adrenal glands. The aorta is normal in size. No obvious mesenteric or bowel abnormalities are seen. In the visualized portions of the lower lungs on the pulmonary windows, no abnormalities are seen. IMPRESSION: Bilateral ureteral stones with mild LEFT and moderate RIGHT hydronephrosis. Nonoccluding bilateral renal stones. Interpreted By: Didier Willard MD Preliminary Report By: Didier Willard MD Electronically Signed By: Didier Willard MD Dictated Date: 01/03/2019 3:08:28 AM Prelim Date: 01/03/2019 3:08:28 AM Sign Date: 01/03/2019 3:19:01 AM Normal [facility] (MD) UAon 01-03-2019 Color (U) Yellow Normal [facility] (MD) Comment on above: Performed By: #### U A, UAMIC #### [place] [address] Glucose (U) [Mass/Vol] 500 mg/dL Negative [facility] (MD) Comment on above: Performed By: #### U A, UAMIC #### [place] [address] Ketones Ql (U) Negative Normal Neg-Trace [facility] (MD) Comment on above: Performed By: #### U A, UAMIC #### [address] [address] UA Appear Hazy [facility] (MD) Comment on above: Performed By: #### U A, UAMIC #### [address] [address] UA Blood Large Neg-Trace [facility] (MD) Comment on above: Performed By: #### U A, UAMIC #### [address] [address] UA Leuk Est Negative Normal Negative [facility] (MD) Comment on above: Performed By: #### U A, UAMIC #### [address] [address] UA Nitrite Negative Normal Negative [facility] (MD) Comment on above: Performed By: #### U A, UAMIC #### [place] [address] UA pH 6.0 Normal 5.0 - 8.0 [facility] (MD) Comment on above: Performed By: #### U A, UAMIC #### [place] [address] UA Protein 30 mg/dL Normal Negative [facility] (MD) Comment on above: Performed By: #### U A, UAMIC #### [place] [address] UA Spec Grav 1.025 [facility] (MD) Comment on above: Performed By: #### U A, UAMIC #### [place] [address] UA Specimen Type Clean Catch Normal [facility] (MD) Comment on above: Performed By: #### U A, UAMIC #### [place] [address] UA Urobilinogen 0.2 E.U./dL Normal [facility] (MD) Comment on above: Performed By: #### U A, UAMIC #### [place] [address] Urobilinogen Qn (U) Negative Normal Neg-Trace [facility] (MD) Comment on above: Performed By: #### U A, UAMIC #### [place] [address] UAMICon 01-03-2019 RBC (U) [#/Vol] 03-04 0-2 [facility] (MD) Comment on above: Performed By: #### U A, UAMIC #### [place] [address] UA Bacteria Trace Negative [facility] (MD) Comment on above: Performed By: #### U A, UAMIC #### [place] [address] UA Mucous 1+ /hpf Normal [facility] (MD) Comment on above: Performed By: #### U A, UAMIC #### [place] [address] UA Squam Epithelial 0-2 Normal 0-20 [facility] (MD) Comment on above: Performed By: #### Skylar Parsi UAMIC #### [address] [address] UA WBC 0-2 Normal 0-5 [facility] (MD) Comment on above: Performed By: #### U [place] UAMIC #### [address] [address] B12on 08-11-2018 Cobalamin (Vitamin B12) mass conc 474.1 pg/mL Normal 193-986 [facility] Comment on above: Performed By: #### L 500.44984, L500.21305, L500.39638, L500.89079, L500.93425, L500.09730, L500.50973, L550.46939 #### [facility] [address] [place] [address] CBC W/DIFFon 08-11-2018 BASO ABS 0.10 K/CU MM Normal 0-0.2 [facility] Comment on above: Performed By: #### L 200.70237, L550.90629 #### [facility] [address] [place] [address] Basophils/100 WBC (Bld) 0.9 % Normal 0-2 [facility] Comment on above: Performed By: #### L 200.77636, L550.32553 #### [facility] [address] [place] [address] EOS ABS 0.30 K/CU MM Normal 0-0.5 [facility] Comment on above: Performed By: #### L 200.79290, L550.95968 #### [facility] [address] [place] [address] Eosinophils/100 WBC (Bld) 3.3 % Normal 0-5 [facility] Comment on above: Performed By: #### L 200.11276, L550.76569 #### [facility] [address] [place] [address] Erythrocyte distribution width Ratio (RBC) 12.0 % Normal 11-14.5 [facility] Comment on above: Performed By: #### L 200.72008, L550.95496 #### [facility] [address] [place] [address] Hematocrit Volume Fraction (Bld) 45.0 % Normal 41.0-53.0 [facility] Comment on above: Performed By: #### L 200.25600, L550.23479 #### [facility] [address] [place] [address] Hemoglobin mass conc (Bld) 14.7 g/dL Normal 13.5-17.5 [facility] Comment on above: Performed By: #### L 200.09878, L550.98941 #### [facility] [address] [place] [address] IMMATR GRAN ABS 0.00 K/CU MM Normal Less than 2 [facility] Comment on above: Performed By: #### L 200.65014, L550.53042 #### [facility] [address] [place] [address] IMMATURE GRAN % 0.3 % Normal Less than 2 [facility] Comment on above: Performed By: #### L 200.13965, L550.34133 #### [facility] [address] [place] [address] Lymphocytes #/vol (Bld) 2.60 K/CU MM Normal 0.9-4.4 [facility] Comment on above: Performed By: #### L 200.22509, L550.92108 #### [facility] [address] [place] [address] Lymphocytes/100 WBC (Bld) 33.1 % Normal 20-40 [facility] Comment on above: Performed By: #### L 200.58222, L550.92211 #### [facility] [place] [address] MCHC mass conc (RBC) 32.7 g/dL Normal 32.0-36.0 [facility] Comment on above: Performed By: #### L 200.37414, L550.52298 #### [facility] [address] [place] [address] MCV Entitic volume (RBC) 98.3 fL Normal 80.0-99.0 [facility] Comment on above: Performed By: #### L 200.98427, L550.20919 #### [facility] [address] [place] [address] MONO ABS 0.90 K/CU MM Normal 0.1-1.1 [facility] Comment on above: Performed By: #### L 200.25747, L550.31846 #### [facility] [address] [place] [address] Monocytes/100 WBC (Bld) 11.1 % High 2-10 [facility] Comment on above: Performed By: #### L 200.56116, L550.48450 #### [facility] [address] [place] [address] NEUTROPHIL ABS 4.10 K/CU MM Normal 2.0-8.3 [facility] Comment on above: Performed By: #### L 200.37807, L550.27357 #### [facility] [address] [place] [address] Neutrophils/100 WBC (Bld) 51.3 % Normal 45-75 [facility] Comment on above: Performed By: #### L 200.28006, L550.35045 #### [facility] [address] [place] [address] Nucleated RBC/100 WBC Ratio (Bld) 0.0 % Normal Less than 1 [facility] Comment on above: Performed By: #### L 200.69003, L550.87577 #### [facility] [address] [place], [place] [address] Platelet mean volume Entitic volume (Bld) 9.9 fL Normal 9.4-12.4 [facility] Comment on above: Performed By: #### L 200.33335, L550.07200 #### [facility] [address] [place] [address] Platelets #/vol (Bld) 297 K/CU MM Normal 150-450 [facility] Comment on above: Performed By: #### L 200.76222, L550.67197 #### [facility] [address] [place] [address] RBC #/vol (Bld) 4.58 M/CU MM Normal 4.50-6.00 [facility] Comment on above: Performed By: #### L 200.46901, L550.56254 #### [facility] [address] [place] [address] WBC #/vol (Bld) 7.9 K/CUMM Normal 4.5-11.0 [facility] Comment on above: Performed By: #### L 200.97302, L550.59522 #### [facility] [address] [place], [place] [address] CMPon 08-11-2018 Albumin mass conc 4.0 g/dL Normal 3.2-5.0 [facility] Comment on above: Performed By: #### L 500.15633, L500.89317, L500.42435, L500.34643, L500.60604, L500.46443, L500.75275, L550.33953 #### [facility] [address] [place], [place] [address] Albumin/Globulin mass ratio 1.2 {ratio} Normal 0.8-2.0 [facility] Comment on above: Performed By: #### L 500.06132, L500.68878, L500.91419, L500.42909, L500.25181, L500.67451, L500.30537, L550.81684 #### [facility] [place] [address] ALK PHOS 60 U/L Normal 45-117 [facility] Comment on above: Performed By: #### L 500.55320, L500.46405, L500.14177, L500.29739, L500.59973, L500.34913, L500.44713, L550.46120 #### [facility] [address] [place] [address] ALT enzyme act/vol 19 U/L Normal 13-61 [facility] Comment on above: Result Comment: RESU LTS MAY BE FALSELY DEPRESSED AFTER THE ADMINISTRATION OF SULFASALAZINE AND/OR SULFAPYRIDINE. Performed By: #### L 500.89877, L500.75466, L500.71412, L500.79880, L500.41956, L500.41313, L500.46157, L550.44205 #### [facility] [address] [place] [address] Anion gap molar conc 5 mmol/L Normal 5-16 [facility] Comment on above: Performed By: #### L 500.81901, L500.33205, L500.83503, L500.09586, L500.22038, L500.04876, L500.46016, L550.70918 #### [facility] [address] [place] [address] BILI TOTAL 0.3 MG/DL Normal 0.2-1.0 [facility] Comment on above: Performed By: #### L 500.29837, L500.93775, L500.50517, L500.76962, L500.70505, L500.12245, L500.59453, L550.89134 #### [facility] [address] [place] [address] Calcium mass conc 9.7 mg/dL Normal 8.5-10.1 [facility] Comment on above: Performed By: #### L 500.68105, L500.48395, L500.93730, L500.02564, L500.42215, L500.96143, L500.34375, L550.08099 #### [facility] [address] [place] [address] Chloride molar conc 102 mmol/L Normal 98-107 [facility] Comment on above: Performed By: #### L 500.49681, L500.84013, L500.99233, L500.19518, L500.10545, L500.72684, L500.77237, L550.89144 #### [facility] [address] [place] [address] CO2 molar conc 30 mmol/L Normal 21-32 [facility] Comment on above: Performed By: #### L 500.22009, L500.43685, L500.83141, L500.51857, L500.33920, L500.39275, L500.58987, L550.73255 #### [facility] [address] [place] [address] Creatinine mass conc 1.170 mg/dL Normal 0.670-1.170 [facility] Comment on above: Result Comment: Shilpa ents receiving either N-Acetylcysteine (NAC) or Metamizole prior to venipuncture, may have falsely depressed results. Performed By: #### L 500.97816, L500.13822, L500.35064, L500.74373, L500.99088, L500.94329, L500.34702, L550.22678 #### [facility] [place] [address] Globulin mass conc (S) 3.2 g/dL Normal 2.2-4.2 [facility] Comment on above: Performed By: #### L 500.58245, L500.57997, L500.22522, L500.89030, L500.51000, L500.37290, L500.12319, L550.96481 #### [facility] [address] [place] [address] Glucose mass conc 106 mg/dL High 70-100 [facility] Comment on above: Result Comment: 70-1 00- Normal Fasting; 100-125 Impaired Fasting; greater than 126 on more than one result- Diabetes. ADA guidelines. Results may be falsely elevated after the administration of Sulfapyridine. Results may be falsely depressed after the administration of Sulfasalazine. Performed By: #### L 500.11536, L500.63780, L500.88276, L500.54633, L500.15739, L500.69050, L500.88838, L550.65490 #### [facility] [address] [place] [address] Potassium molar conc 4.8 mmol/L Normal 3.5-5.1 [facility] Comment on above: Performed By: #### L 500.08067, L500.67039, L500.17125, L500.40464, L500.87263, L500.75382, L500.59605, L550.66119 #### [facility] [address] [place] [address] Protein mass conc 7.3 g/dL Normal 6.0-8.5 [facility] Comment on above: Performed By: #### L 500.24948, L500.77502, L500.83873, L500.62406, L500.27885, L500.99197, L500.86404, L550.82336 #### [facility] [address] [place] [address] SGOT (AST) 15 U/L Normal 8-34 [facility] Comment on above: Result Comment: RESU LTS MAY BE FALSELY DEPRESSED AFTER THE ADMINISTRATION OF SULFASALAZINE AND/OR SULFAPYRIDINE. Performed By: #### L 500.24165, L500.14868, L500.12125, L500.92146, L500.09096, L500.10526, L500.61210, L550.85129 #### [facility] [address] [place] [address] Sodium molar conc 137 mmol/L Normal 136-145 [facility] Comment on above: Performed By: #### L 500.41721, L500.12377, L500.87279, L500.29946, L500.95906, L500.22304, L500.40716, L550.85780 #### [facility] [address] [place] [address] Urea nitrogen mass conc 17 mg/dL Normal 7-26 [facility] Comment on above: Performed By: #### L 500.51794, L500.30977, L500.99313, L500.05581, L500.72167, L500.83758, L500.36299, L550.44414 #### [facility] [address] [place], [place] [address] Urea nitrogen/Creatinine mass ratio 14 mg/mg Low 15-24 [facility] Comment on above: Performed By: #### L 500.53267, L500.74131, L500.74125, L500.51173, L500.19319, L500.65588, L500.43799, L550.96867 #### [facility] [address] [place], [place] [address] GFR ESTon 08-11-2018 IF AMER Greater than 60 Normal [facility] Comment on above: Performed By: #### L 500.90385, L500.57846, L500.84423, L500.50706, L500.98058, L500.69509, L500.49923, L550.68148 #### [facility] [place] [address] IF non-AFR AMER Greater than 60 Normal [facility] Comment on above: Performed By: #### L 500.39938, L500.19893, L500.88274, L500.70308, L500.39281, L500.50714, L500.52004, L550.17028 #### [facility] [address] [place] [address]# [phone] HGB A1C GLYCOHBon 08-11-2018 Hemoglobin A1c/Hemoglobin.total mass fraction (Bld) 5.5 % Normal 4.3-6.0 [facility] Comment on above: Performed By: #### L 200.41220, L550.67233 #### [facility] [address] [place] [address] LIPIDon 08-11-2018 Cholesterol in HDL mass conc 35 mg/dL Low [place] 40 [facility] Comment on above: Result Comment: Shilpa ents receiving Metamizole prior to venipuncture, may have falsely depressed results. Performed By: #### L 500.06727, L500.22882, L500.68569, L500.76667, L500.82629, L500.04434, L500.21939, L550.51609 #### [facility] [place] [id number] Cholesterol in LDL mass conc 91 mg/dL Normal 0-129 [facility] Comment on above: Result Comment: ___C HOLESTEROL/HDL RATIO RISK___ CHD RISK = Total CHOL LDL HDL (CHOL/HDL) Recommended <200 <130 >35 <3.4 Borderline 200-239 130-159 3.4-4.99 High >240 >160 >5.0 Performed By: #### L 500.68244, L500.72371, L500.43525, L500.72169, L500.45718, L500.02337, L500.50487, L550.86434 #### [facility] [place] [address] Cholesterol mass conc 167 mg/dL Normal 0-199 [facility] Comment on above: Performed By: #### L 500.57127, L500.36280, L500.36526, L500.20279, L500.26196, L500.87863, L500.41578, L550.90276 #### [facility] [address] [place] [address] Triglyceride mass conc 204 mg/dL High 30-149 [facility] Comment on above: Result Comment: Shilpa ents receiving either N-Acetylcysteine (NAC) or Metamizole prior to venipuncture, may have falsely depressed results. Performed By: #### L 500.38989, L500.54042, L500.06422, L500.10587, L500.26272, L500.93047, L500.20381, L550.60112 #### [facility] [address] [place], [place] [address] T3 UPon 08-11-2018 T3 UP 34.0 % Normal 33.0-40.0 [facility] Comment on above: Performed By: #### L 500.16436, L500.03128, L500.28275, L500.55904, L500.84281, L500.02930, L500.54898, L550.22775 #### [facility] [address] [place], [place] [address] T4on 08-11-2018 T4 6.7 UG/DL Normal 4.5-12.1 [facility] Comment on above: Result Comment: RESU LTS MAY BE FALSELY ELEVATED AFTER THE ADMINISTRATION OF SULFASALAZINE. Performed By: #### L 500.72973, L500.37043, L500.27952, L500.59950, L500.67641, L500.88311, L500.28626, L550.93211 #### [facility] [address] [place] [address] TSHon 08-11-2018 Thyrotropin Qn 2.560 UIU/ML Normal 0.358-3.740 [facility] Comment on above: Result Comment: 3rd generation ultra sensitive TSH Performed By: #### L 500.62412, L500.61795, L500.63191, L500.49038, L500.32081, L500.60867, L500.90528, L550.10006 #### [facility] [address] [place] [id number] 08-11-2018 [id number] 10.5 NG/ML Low 30.0-100.0 [facility] Comment on above: Result Comment: Defi ciency Less than 20 ng/mL Insufficiency 20 - Less than 30 ng/mL Sufficiency 30 - 100 ng/mL Performed By: #### L 500.85217, L500.49054, L500.06946, L500.22404, L500.08526, L500.31754, L500.27989, L550.35715 #### [facility] [address] [place] [address] Vital Signs Date Time Vital Sign Value Performing Clinician Steven shoemaker 08-24-2024 11:17-0400 Body temperature 98.1 [degF] Iris Potter MD Work Phone: [facility] 08-24-2024 11:17-0400 Diastolic blood pressure 71 mm[Hg] Iris Potter MD Work Phone: [facility] 08-24-2024 11:17-0400 Heart rate 62 /min Iris Potter MD Work Phone: [facility] 08-24-2024 11:17-0400 Respiratory rate 18 /min Iris Potter MD Work Phone: [facility] 08-24-2024 11:17-0400 SaO2% (BldA) [Mass fraction] 97 % Iris Potter MD Work Phone: [facility] 08-24-2024 11:17-0400 Systolic blood pressure 115 mm[Hg] Iris Potter MD Work Phone: [facility] 08-24-2024 03:23-0400 Body mass index (BMI) [Ratio] 32.3 kg/m2 Iris Potter MD Work Phone: [facility] 08-24-2024 03:23-0400 Body weight 97 kg Iris Potter MD Work Phone: [facility] 08-21-2024 11:36-0400 Body height 172.72 cm Iris Potter MD Work Phone: [facility] 08-21-2024 03:37-0400 Body temperature 98 [degF] Iris Potter MD Work Phone: [facility] 08-21-2024 03:37-0400 Diastolic blood pressure 73 mm[Hg] Iris Potter MD Work Phone: [facility] 08-21-2024 03:37-0400 Heart rate 78 /min Iris Potter MD Work Phone: [facility] 08-21-2024 03:37-0400 Respiratory rate 16 /min Iris Potter MD Work Phone: [facility] 08-21-2024 03:37-0400 SaO2% (BldA) [Mass fraction] 95 % Iris Potter MD Work Phone: [facility] 08-21-2024 03:37-0400 Systolic blood pressure 133 mm[Hg] Iris Potter MD Work Phone: [facility] 08-21-2024 00:05-0400 Body height 172.72 cm Iris Potter MD Work Phone: [facility] 08-21-2024 00:05-0400 Body mass index (BMI) [Ratio] 32.6 kg/m2 Iris Potter MD Work Phone: [facility] 08-21-2024 00:05-0400 Body weight 97.34 kg Iris Potter MD Work Phone: [facility] Encounters Encounter Date Encounter Type Care Provider Facility Start: 08-24-2024 End: 08-24-2024 ambulatory Iris Potter MD Work Phone: [facility] Work Phone: Start: 08-24-2024 End: 08-24-[address] Iris Potter MD -Radiology, [facility] Work Phone: Start: 08-24-2024 Non-patient / Non-visit Dr. Eveline Bradford [facility] Work Phone: Start: 08-24-2024 End: 08-24-2024 [facility] Start: 08-23-2024 Non-patient / Non-visit Dr. Eveline Bradford [facility] Work Phone: Start: 08-22-2024 Non-patient / Non-visit Dr. Eveline Bradford [facility] Work Phone: Start: 08-21-2024 ambulatory Eveline Bradford Facility:[facility] Start: 08-21-2024 End: 08-24-2024 Evaluation and management of inpatient Dr. Julito Jones DO -[facility] Work Phone: Start: 07-30-2024 End: 07-30-2024 ambulatory Iris Potter MD Work Phone: [facility] Work Phone: Start: 07-30-2024 End: 07-30-[address] Iris Potter MD -Laboratory Work Phone: Start: 07-30-2024 End: 07-30-2024 [facility] Facility:[facility] Start: 06-09-2024 End: 06-09-2024 ambulatory PHY WO ID REFERRING Facility:A Start: 06-09-2024 End: 06-09-2024 Patient encounter procedure PHY WO ID REFERRING [facility] Start: 12-14-2023 End: 12-14-2023 [facility] Facility:[facility] Start: 08-11-2018 Patient encounter procedure Aniya Huffman Facility:[facility] Start: 11-26-2016 End: 11-26-2016 Ambulatory Esther Chavez Facility:[facility] Procedures Date Procedure Procedure Detail Performing Clinician Start: 08-24-2024 Plain x-ray of pelvi s and lower extremity Iris Potter MD Work Phone: Start: 08-24-2024 X-ray of lumbosacral spine Iris Potter MD Work Phone: Start: 08-21-2024 CT of abdomen Iris vasques MD Work Phone: Plan of Treatment Date Care Activity Detail Author Start: 08-24-2024 Patient discharge [facility] Start: 08-21-2024 Following clinical p athway protocol [facility] Start: 08-21-2024 Aspiration precautions [facility] Start: 08-21-2024 Assessment of risk o f venous thromboembolism [facility] Start: 08-21-2024 Insertion of cathete r into peripheral vein [facility] Start: 08-21-2024 Measuring intake and output [facility] Start: 08-21-2024 Providing care accor ding to standard [facility] Start: 08-21-2024 Provision of activity privileges [facility] Start: 08-21-2024 Referral to service [facility] Start: 08-21-2024 Seizure precautions [facility] Start: 08-21-2024 Tobacco use cessation education [facility] Start: 08-21-2024 [facility] Start: 08-21-2024 Verification routine [facility] Start: 08-21-2024 Admission procedure [facility] Start: 08-21-2024 Hospital admission, emergency, from emergency room, medical nature [facility] Start: 08-21-2024 Patient referral to dietitian [facility] Patient referral [facility] Work Phone: Payers Date Payer Category Payer Unknown [id number] 2024 Unknown [id number] 2023 Self-pay 2023 Unknown [id number] 2018 Unknown [id number] 1970 Unknown [id number] 2.16.8 [id number] Unknown [id number] 2.16.8 [id number] Unknown [employer] [id number] Unknown [id number] 2.16.8 [id number] Unknown [id number] 2.16.8 [id number] Unknown [id number] 2.16.8 [id number] Unknown [id number] 2.16.8 [id number] Unknown [id number] 2.16.8 [id number] Unknown [id number] 2.16.8 [id number] Unknown [id number] 2.16.8 [id number] Unknown [id number] 2.16.8 [id number] Social History Date Type Detail Facility Tobacco smoking status [facility] Start: 1970 Sex Assigned At Male A [facility] Start: 06-09-2024 End: 08-29-2024 Sex Male (finding) [facility] Start: 07-14-2018 End: 08-22-2024 Tobacco smoking status NHIS Current Heavy tobacco smoker [facility] Start: 07-14-2018 Cigarettes Cigarettes [facility] Goals Date Patient Goal Desired Activity /State Functional Status Date Assessment Result Facility 08-24-2024 Functional status Ambulates;Up ad kevin [facility] Work Phone: Mental Status Date Assessment Result Facility 08-24-2024 Cognitive function Voice/Name [facility] Work Phone: Clinical Notes 08-21-2024 to 08-24-2024 Note Date & Type Note Facility 08-24-2024 Radiology Diagnostic study note [facility] Imaging Services [address] [place], [place] [address] [phone] L/S Spine Min 4 Views MR#: [id number] Acct: [id number] Name: CARROLL BUTTS Rep #: [id number] : 1970 M 54 From: Nadia Khan MD PCP: Dr. Iris Potter MD Status: REG CL I Study:L/S Spine Min 4 Views Date of Exam: 08/24/24 Exam# [id number] Ordering Dr: Dianelys Potter MD EXAM: XR Lumbosacral Spine Flexion/Extension Only, 2 or 3 Views CLINICAL INDICATION: LOW BACK PAIN TECHNIQUE: Lateral flexion/extension views of the lumbar spine and sacrum. COMPARISON: No relevant prior studies available. FINDINGS: VERTEBRAE: Facet arthropathy of L5-S1. Normal sagittal alignment. No acute fracture. SACRUM/COCCYX: Unremarkable as visualized. No acute fracture. DISC SPACES: No acute findings. No significant narrowing. SOFT TISSUES: Unremarkable. RAD/L/S Spine Min 4 Views IMPRESSION: No acute fracture. Reading Location: [facility] CC: Dr. Iris Potter MD ~ Design Assistant: Signed [facility] 08-24-2024 Radiology Diagnostic study note [facility] Imaging Services [address] [address] [phone] Hips B/L min 2 views w/ Pelvis MR#: [id number] Acct: [id number] Name: CARROLL BUTTS Rep #: [id number] : 1970 M 54 From: Nadia Khan MD PCP: Dr. Iris Potter MD Status: REG CL I Study:Hips B/L min 2 views w/ Pelvis Date of Exam: 08/24/24 Exam# [id number] Ordering Dr: Dianelys Potter MD EXAM: XR Bilateral Hips With Pelvis When Performed, 2 Views CLINICAL INDICATION: PAIN TECHNIQUE: Frontal view of the bilateral hips with pelvis when performed. COMPARISON: No relevant prior studies available. FINDINGS: BONES/JOINTS: Unremarkable. No acute fracture. No dislocation. SOFT TISSUES: Unremarkable. RAD/Hips B/L min 2 views w/ Pelvis IMPRESSION: Normal bilateral hip x-ray. Reading Location: [facility] CC: Dr. Iris Potter MD ~ Design Assistant: Signed [facility] 08-24-2024 Note [facility] Medical Records Department [address] [place] [address] Discharge Summary 08/24/24 1202 MR#: [id number] Acct: [id number] Name: CARROLL BUTTS Rep #: [id number] : 1970 54 From: Eveline Bradford DO PCP: Dr. Iris Potter MD Status:DIS IN Location: [facility] [id number] Providers Date of Admission: 08/21/24 Date of Discharge: 08/24/24 Primary Care Physician: Iris Potter MD Reason For Visit: ACUTE ETOH WITHDRAWAL Diagnosis Discharge Diagnosis (1) Desire for detoxification: Status: Acute (2) Alcohol dependence: Status: Chronic Code(s): F10.20 - Alcohol dependence, uncomplicated Qualifiers: Complication of substance-induced condition: uncomplicated Substance use status: in withdrawal Qualified Code(s): F10.230 - Alcohol dependence with withdrawal, uncomplicated (3) Alcohol withdrawal: Status: Acute Code(s): F10.239 - Alcohol dependence with withdrawal, unspecified Qualifiers: Complication of substance-induced condition: uncomplicated Qualified Code(s): F10.930 - Alcohol use, unspecified with withdrawal, uncomplicated Medications at Discharge Home Medications alprazolam 0.5 mg tablet 0.5 mg PO QHS anxiety 08/21/24 amlodipine 10 mg tablet 10 mg PO DAILY bp 08/21/24 bupropion HCl 150 mg 24 hr tablet, extended release 150 mg PO DAILY depression 08/21/24 escitalopram oxalate 20 mg tablet 20 mg PO DAILY mood 08/21/24 fluoxetine 20 mg capsule 20 mg PO DAILY mood 08/21/24 hydroxyzine HCl 25 mg tablet 25 mg PO TID PRN PRN anxiety 08/21/24 levothyroxine 50 mcg tablet 50 mcg PO DAILY thyroid 08/21/24 lisinopril 10 mg tablet 10 mg PO DAILY bp 08/21/24 Hospital Course Summary of Care Provided Minutes Spent on Discharge: 22 Hospital Course: Mr. Butts is a 54-year-old white male who presents emergency department at [facility] early on the morning of 08/22/2023 with a chief complaint of alcohol withdrawal. On presentation he admitted to drinking 1/5 of vodka daily plus multiple screwdrivers. He was admitted here from July 12 through July 14, 2018 and transitioned to [facility] in [facility] for long-term rehabilitation. Clearly, since then he has relapsed. Patient reported he took his also alcohol drink on the morning of 08/20/2024 and had a gradual onset of tremors with heightened anxiety so he decided he wanted to come in for evaluation and treatment. He also complained of increasing abdominal distention that was new and had no previous diagnosis of cirrhosis. Vital signs on presentation showed a temperature of 98, heart rate 81, blood pressure 136/90 and pulse ox was 97% room air. CBC on presentation showed mild anemia with a hemoglobin of 12.7. This is macrocytic in nature. Platelet count was normal. Coags are pending. Chemistry panel showed elevated serum creatinine 1.53 but was otherwise unremarkable. Liver functions were normal. Liver functions were normal. Toxicology was presumptive positive for benzodiazepines and alcohol level was less than 10. Ultrasound the abdomen was unremarkable for any signs of cirrhosis and only showed some hepatosteatosis related to his alcohol use. He was placed on a phenobarbital taper with supportive medications for symptoms of withdrawal. He did fairly well and was seen by 180 during his hospitalization. He is to set up an appointment with a new day after discharge and was given Vivitrol on the day of discharge. The patient was discharged home with no medication changes other than the Vivitrol in stable condition and asked to call a new day after discharge to set up an appointment to be seen. Discharge diagnoses: Acute alcohol withdrawal Chronic alcohol abuse Macrocytic anemia Elevated serum creatinine-resolved Bipolar disorder Essential hypertension Hypothyroidism Tobacco abuse Obesity Physical Exam Const alert, oriented x3, no apparent distress, no limitations and well nourished; Negative for average body habitus or healthy appearing Constitutional Narrative: Obese middle aged white male sitting up in bed watching television, appears comfortable and nontoxic General Appearance: cooperative, comfortable, well kempt and well developed HEENT normocephalic, head/scalp atraumatic and moist oral mucous membranes Resp normal respiratory effort, no retractions, no use of accessory muscles and clear to auscultation bilaterally Resp Narrative: diminished but clear Auscultation: Negative for rales, rhonchi or wheezes Cardio regular rate, regular rhythm, S1 normal heart sound, S2 normal heart sound, no murmurs, no rub, no gallops and no clicks GI normal to inspection, nondistended, normoactive bowel sounds, soft to palpation and non-tender Extremity no clubbing, cyanosis or edema Extremity Narrative: 2+ pedal pulses Neuro oriented x3, moves all extremities and no focal motor deficits Neuro (more content not included)... [facility] 08-23-2024 Progress note Note Date/Time August 23, 2024 1:56pm [facility] Medical Records Department [address] [place] [address] Progress Note - Hospitalist 08/23/24 1354 MR#: [id number] Acct: [id number] Name: CARROLL BUTTS Rep #:[id number] : 1970 54 From: Eveline Bradford DO PCP: Dr. Iris Potter MD Status:ADM IN Location: [place] [id number] Reason for Visit Reason for Visit: Acute alcohol withdrawal Subjective Subjective Patient states overall he is feeling much better. CIWA is still 5. Continues on phenobarbital taper. Patient is agreeable to get Vivitrol and follow-up at anew date at the time of discharge. We discussed that he would likely be ready tomorrow. Objective Data Objective Data Vital Signs: Vital Signs Temp Pulse Resp BP Pulse Ox O2 Del Method 97.9 F 66 18 121/80 H 94 Room Air 08/23/24 08:42 08/23/24 11:12 08/23/24 08:42 08/23/24 11:12 08/23/24 08:42 08/23/24 08:42 Oxygen Delivery Method Room Air Weight: 97.2 kg Body Mass Index (BMI) 32.4 Intake & Output: Intake and Output for Last 24 Hours 08/21/24 08/22/24 08/23/24 23:59 23:59 23:59 Intake Total 2100 / 2100 1600 / 1600 300 / 300 Output Total 1800 / 1800 1100 / 1100 Balance 300 / 300 500 / 500 300 / 300 Lab / Micro Data 08/22/24 06:58 08/22/24 06:58 Labs: Laboratory Results - last 24 hr 08/22/24 06:58: Phosphorus 3.2 Physical Exam Const alert, oriented x3, no apparent distress and well nourished; Negative for average body habitus or healthy appearing Constitutional Narrative: Obese middle aged white male sitting up in bed watching television, appears comfortable and nontoxic General Appearance: cooperative Resp Resp Narrative: diminished but clear GI GI Narrative: no fluid wave Extremity Extremity Narrative: 2+ pedal pulses Skin Skin Narrative: Patient has no evidence of rash, abscess, wounds or jaundice. Psych affect normal Psych Narrative: Eye contact is good and patient interacts appropriately Assessment & Plan Assessment/Plan (1) Desire for detoxification: (2) Alcohol dependence: QUALIFIERS: Substance use status: in withdrawal Complication of substance-induced condition: uncomplicated Qualified Code(s): F10.230 - Alcoholdependence with withdrawal, uncomplicated (3) Alcohol withdrawal: QUALIFIERS: Complication of substance-induced condition: uncomplicated Qualified Code(s): F10.930 - Alcohol use, unspecified with withdrawal, uncomplicated PLAN: Plan Acute alcohol withdrawal -LFTs are within normal limits -Patient is drinking about 1/5 of vodka daily plus multiple mixed drinks -Phenobarbital taper as ordered -CIWA is currently about 5 -Vistaril ordered for a.m. his discharge is likely tomorrow -Supportive medications as needed -180 consultation following and plan is Vivitrol at d/c with f/u at a new day Abdominal Swelling -not cirrhosis -US shows mild hepatomegaly and steatosis -suspect weight gain -No further workup required at this time Macrocytic anemia -Suspect chronic -hgb remains stable -Monitor as needed Elevated serum creatinine -resolved Bipolar disorder -Continue escitalopram -Continue fluoxetine -Continue Wellbutrin -Continue as needed Xanax but would recommend using sparingly -Continue as needed hydroxyzine Essential hypertension -BP control is good -Continue home amlodipine -Continue home lisinopril -As needed hydralazine available for systolic pressures greater than 160 Hypothyroidism -Continue home levothyroxine -TSH is just slightly elevated but suspect euthyroid sick syndrome--> outpt f/u Tobacco abuse -Patient still smoking but recommend cessation strongly -Nicotine patch available Obesity -BMI is 32.6 -Recommend weight loss -Complicates treatment, prognosis, outcomes CODE STATUS -Full code Charges/Coding Visit Charges Inpatient E&M: 47695 Subs Hosp L1 08/23/24 1356 <Electronically signed by Eveline Bradford DO> Cosigner Signature (if applicable): CC: ~ Signed [facility] Work Phone: 1(937) 596-482404-10-2025 Progress note [facility] Medical Records Department [address] [place] [address] Progress Note - Hospitalist 08/23/24 1354 MR#: [id number] Acct: [id number] Name: CARROLL BUTTS Rep #:[id number] : 1970 54 From: Eveline Bradford DO PCP: Dr. Iris Potter MD Status:ADM IN Location: [address] Reason for Visit Reason for Visit: Acute alcohol withdrawal Subjective Subjective Patient states overall he is feeling much better. CIWA is still 5. Continues on phenobarbital taper. Patient is agreeable to get Vivitrol and follow-up at anew date at the time of discharge. We discussed that he would likely be ready tomorrow. Objective Data Objective Data Vital Signs: Vital Signs Temp Pulse Resp BP Pulse Ox O2 Del Method 97.9 F 66 18 121/80 H 94 Room Air 08/23/24 08:42 08/23/24 11:12 08/23/24 08:42 08/23/24 11:12 08/23/24 08:42 08/23/24 08:42 Oxygen Delivery Method Room Air Weight: 97.2 kg Body Mass Index (BMI) 32.4 Intake & Output: Intake and Output for Last 24 Hours 08/21/24 08/22/24 08/23/24 23:59 23:59 23:59 Intake Total 2100 / 2100 1600 / 1600 300 / 300 Output Total 1800 / 1800 1100 / 1100 Balance 300 / 300 500 / 500 300 / 300 Lab / Micro Data 08/22/24 06:58 08/22/24 06:58 Labs: Laboratory Results - last 24 hr 08/22/24 06:58: Phosphorus 3.2 Physical Exam Const alert, oriented x3, no apparent distress and well nourished; Negative for average body habitus or healthy appearing Constitutional Narrative: Obese middle aged white male sitting up in bed watching television, appears comfortable and nontoxic General Appearance: cooperative Resp Resp Narrative: diminished but clear GI GI Narrative: no fluid wave Extremity Extremity Narrative: 2+ pedal pulses Skin Skin Narrative: Patient has no evidence of rash, abscess, wounds or jaundice. Psych affect normal Psych Narrative: Eye contact is good and patient interacts appropriately Assessment & Plan Assessment/Plan (1) Desire for detoxification: (2) Alcohol dependence: QUALIFIERS: Substance use status: in withdrawal Complication of substance- induced condition: uncomplicated Qualified Code(s): F10.230 - Alcoholdependence with withdrawal, uncomplicated (3) Alcohol withdrawal: QUALIFIERS: Complication of substance-induced condition: uncomplicated Qualified Code(s): F10.930 -Alcohol use, unspecified with withdrawal, uncomplicated PLAN: Plan Acute alcohol withdrawal -LFTs are within normal limits -Patient is drinking about 1/5 of vodka daily plus multiple mixed drinks -Phenobarbital taper as ordered -CIWA is currently about 5 -Vistaril ordered for a.m. his discharge is likely tomorrow -Supportive medications as needed -180 consultation following and plan is Vivitrol at d/c with f/u at a new day Abdominal Swelling -not cirrhosis -US shows mild hepatomegaly and steatosis -suspect weight gain -No further workup required at this time Macrocytic anemia -Suspect chronic -hgb remains stable -Monitor as needed Elevated serum creatinine -resolved Bipolar disorder -Continue escitalopram -Continue fluoxetine -Continue Wellbutrin -Continue as needed Xanax but would recommend using sparingly -Continue as needed hydroxyzine Essential hypertension -BP control is good -Continue home amlodipine -Continue home lisinopril -As needed hydralazine available for systolic pressures greater than 160 Hypothyroidism -Continue home levothyroxine -TSH is just slightly elevated but suspect euthyroid sick syndrome--> outpt f/u Tobacco abuse -Patient still smoking but recommend cessation strongly -Nicotine patch available Obesity -BMI is 32.6 -Recommend weight loss -Complicates treatment, prognosis, outcomes CODE STATUS -Full code Charges/Coding Visit Charges Inpatient E&M: 85301 Subs Hosp L1 08/23/24 1356 Cosigner Signature (if applicable): CC: ~ Signed [facility]04-09-2025 Progress note Author Eveline Bradford [facility] Note Date/Time August 22, 2024 1:46 pm [facility] Medical Records Department [address] [place] [address] Progress Note - Hospitalist 08/22/24 0726 MR#: [id number] Acct: [id number] Name: CARROLL BUTTS Rep #:[id number] : 1970 54 From: Eveline Bradford DO PCP: Dr. Iris Potter MD Status:ADM IN Location: [facility] FP414-5 Reason for Visit Reason for Visit: EtOH withdrawl Subjective Subjective No reported issues overnight. Pt sleeping at the time of my evaluation. Objective Data Objective Data Vital Signs: Vital Signs Temp Pulse Resp BP Pulse Ox O2 Del Method 97.9 F 73 18 122/80 H 95 Room Air 08/22/24 04:53 08/22/24 04:53 08/22/24 04:53 08/22/24 04:53 08/22/24 04:53 08/22/24 04:53 Oxygen Delivery Method Room Air Weight: 96.1 kg Body Mass Index (BMI) 32.1 Intake & Output: Intake and Output for Last 24 Hours 08/20/24 08/21/24 08/22/24 23:59 23:59 23:59 Intake Total 2100 / 2100 200 / 200 Output Total 1800 / 1800 700 / 700 Balance 300 / 300 -500 / -500 Lab / Micro Data 08/22/24 06:58 08/22/24 06:58 Labs: Laboratory Results - last 24 hr 08/21/24 07:41: PT 13.5, INR 1.0, Phosphorus 3.2, TSH 5.180 H Physical Exam Const no apparent distress and well nourished Constitutional Narrative: Obese middle aged white male lying in bed, sleeping, appears comfortable HEENT head/scalp atraumatic Head and Scalp: normocephalic Resp normal respiratory effort, no retractions, no use of accessory muscles and clearto auscultation bilaterally Resp Narrative: diminished but clear Auscultation: Negative for rales, rhonchi or wheezes Cardio regular rate, regular rhythm, S1 normal heart sound, S2 normal heart sound, no murmurs, no rub, no gallops and no clicks GI normal to inspection, nondistended, normoactive bowel sounds, soft to palpation and non-tender GI Narrative: no fluid wave Extremity no clubbing, cyanosis or edema Extremity Narrative: 2+ pedal pulses Neuro Neuro Narrative: sleeping Psych Psych Narrative: sleeping Assessment & Plan Assessment/Plan (1) Desire for detoxification: (2) Alcohol dependence: QUALIFIERS: Substance use status: in withdrawal Complication of substance- induced condition: uncomplicated Qualified Code(s): F10.230 - Alcoholdependence with withdrawal, uncomplicated (3) Alcohol withdrawal: QUALIFIERS: Complication of substance-induced condition: uncomplicated Qualified Code(s): F10.930 - Alcohol use, unspecified with withdrawal, uncomplicated PLAN: Plan Acute alcohol withdrawal -LFTs are within normal limits -Patient is drinking about 1/5 of vodka daily plus multiple mixed drinks -Phenobarbital taper as ordered -Supportive medications as needed -180 consultation following and plan is Vivitrol at d/c with f/u at a new day Abdominal Swelling -not cirrhosis -US shows mild hepatomegaly and steatosis -suspect weight gain Macrocytic anemia -Suspect chronic -hgb remains stable -Monitor as needed Elevated serum creatinine -resolved Bipolar disorder -Continue escitalopram -Continue fluoxetine -Continue Wellbutrin -Continue as needed Xanax but would recommend using sparingly -Continue as needed hydroxyzine Essential hypertension -BP control is good -Continue home amlodipine -Continue home lisinopril -As needed hydralazine available for systolic pressures greater than 160 Hypothyroidism -Continue home levothyroxine -TSH is just slightly elevated but suspect euthyroid sick syndrome--> outpt f/u Tobacco abuse -Patient still smoking but recommend cessation strongly -Nicotine patch available Obesity -BMI is 32.2 -Recommend weight loss -Complicates treatment, prognosis, outcomes CODE STATUS -Full code Charges/Coding Visit Charges Inpatient E&M: 62849 Subs Hosp L2 08/22/24 1346 <Electronically signed by Eveline Bradford DO> Cosigner Signature (if applicable): CC: ~ Signed [facility] Work Phone: 1(487) 456-110604-09-2025 Progress note [facility] Medical Records Department [address] [place] [address] Progress Note - Hospitalist 08/22/24 0727 MR#: [id number] Acct: [id number] Name: CARROLL BUTTS Rep #:[id number] : 1970 54 From: Eveline Bradford DO PCP: Dr. Iris Potter MD Status:ADM [facility] Reason for Visit Reason for Visit: EtOH withdrawl Subjective Subjective No reported issues overnight. Pt sleeping at the time of my evaluation. Objective Data Objective Data Vital Signs: Vital Signs Temp Pulse Resp BP Pulse Ox O2 Del Method 97.9 F 73 18 122/80 H 95 Room Air 08/22/24 04:53 08/22/24 04:53 08/22/24 04:53 08/22/24 04:53 08/22/24 04:53 08/22/24 04:53 Oxygen Delivery Method Room Air Weight: 96.1 kg Body Mass Index (BMI) 32.1 Intake & Output: Intake and Output for Last 24 Hours 08/20/24 08/21/24 08/22/24 23:59 23:59 23:59 Intake Total 2100 / 2100 200 / 200 Output Total 1800 / 1800 700 / 700 Balance 300 / 300 -500 / -500 Lab / Micro Data 08/22/24 06:58 08/22/24 06:58 Labs: Laboratory Results - last 24 hr 08/21/24 07:41: PT 13.5, INR 1.0, Phosphorus 3.2, TSH 5.180 H Physical Exam Const no apparent distress and well nourished Constitutional Narrative: Obese middle aged white male lying in bed, sleeping, appears comfortable HEENT head/scalp atraumatic Head and Scalp: normocephalic Resp normal respiratory effort, no retractions, no use of accessory muscles and clearto auscultation bilaterally Resp Narrative: diminished but clear Auscultation: Negative for rales, rhonchi or wheezes Cardio regular rate, regular rhythm, S1 normal heart sound, S2 normal heart sound, no murmurs, no rub, no gallops and no clicks GI normal to inspection, nondistended, normoactive bowel sounds, soft to palpation and non-tender GI Narrative: no fluid wave Extremity no clubbing, cyanosis or edema Extremity Narrative: 2+ pedal pulses Neuro Neuro Narrative: sleeping Psych Psych Narrative: sleeping Assessment & Plan Assessment/Plan (1) Desire for detoxification: (2) Alcohol dependence: QUALIFIERS: Substance use status: in withdrawal Complication of substance- induced condition: uncomplicated Qualified Code(s): F10.230 - Alcoholdependence with withdrawal, uncomplicated (3) Alcohol withdrawal: QUALIFIERS: Complication of substance-induced condition: uncomplicated Qualified Code(s): F10.930 -Alcohol use, unspecified with withdrawal, uncomplicated PLAN: Plan Acute alcohol withdrawal -LFTs are within normal limits -Patient is drinking about 1/5 of vodka daily plus multiple mixed drinks -Phenobarbital taper as ordered -Supportive medications as needed -180 consultation following and plan is Vivitrol at d/c with f/u at a new day Abdominal Swelling -not cirrhosis -US shows mild hepatomegaly and steatosis -suspect weight gain Macrocytic anemia -Suspect chronic -hgb remains stable -Monitor as needed Elevated serum creatinine -resolved Bipolar disorder -Continue escitalopram -Continue fluoxetine -Continue Wellbutrin -Continue as needed Xanax but would recommend using sparingly -Continue as needed hydroxyzine Essential hypertension -BP control is good -Continue home amlodipine -Continue home lisinopril -As needed hydralazine available for systolic pressures greater than 160 Hypothyroidism -Continue home levothyroxine -TSH is just slightly elevated but suspect euthyroid sick syndrome--> outpt f/u Tobacco abuse -Patient still smoking but recommend cessation strongly -Nicotine patch available Obesity -BMI is 32.2 -Recommend weight loss -Complicates treatment, prognosis, outcomes CODE STATUS -Full code Charges/Coding Visit Charges Inpatient E&M: 52177 Subs Hosp L2 08/22/24 1346 Cosigner Signature (if applicable): CC: ~ Signed [facility]04-09-2025 Radiology Diagnostic study note [facility] Imaging Services [address] [place] [address] Abdomen Complete MR#: [id number] Acct: [id number] Name: CARROLL BUTTS Rep #: [id number] : 1970 M 54 From: Kelsea Garcia MD PCP: Dr. Iris Potter MD Status: ADM IN Study:Abdomen Complete Date of Exam: 01/07 Exam# [id number] Ordering Dr: Julito Beaulieu DO PROCEDURE: ABDOMEN COMPLETE 08/21/2024 REASON FOR EXAM: NEW-ONSET CIRRHOSIS. TECHNIQUE: Complete abdominal ultrasound jones-scale images with color doppler. PATIENT PREPARATION: Per protocol COMPARISON: No relevant prior. FINDINGS: Liver: Mild hepatomegaly at 19.1 cm in length. Hyperechogenic parenchyma. Homogeneous texture. Gallbladder: Unremarkable. Common bile duct: 0.56 cm in diameter. No ductal dilatation.. Pancreas: Normal. No ductal dilatation. Kidneys: The right kidney measures 11.2 x 5.3 x 5.7 cm. Right renal cortex measures 1.5 cm. The left kidney measures 11.2 x 5.4 x 5.5 cm.. Left renal cortex measures 1.0 cm. Left renal cyst measuring 3.2 x 3.2 x 3.0 cm. No calcifications. Spleen: 8.5 x 3.6 x 3.7 cm. No masses or other abnormalities.. Portal blood flow: Hepatopetal. Aorta: The proximal and distal aorta were not visualized. Mid abdominal aorta measures 1.5 cm in diameter. IVC: Unremarkable. Peritoneal Findings: Unremarkable. US/Abdomen Complete IMPRESSION: Mild hepatomegaly. Steatosis. Left renal cyst. Suboptimal evaluation of the aorta due to superimposed bowel-gas. Reading Location: [place] [address] CC: Dr. Iris Potter MD; Dr. Julito Jones DO ~ Design Assistant: Signed [facility]04-08-2025 Progress note Author Eveline Bradford [facility] Note Date/Time August 21, 2024 8:40 am [facility] Medical Records Department [address] [place] [id number] Progress Note - Hospitalist 08/21/24 0827 MR#: [id number] Acct: [id number] Name: CARROLL BUTTS Rep #:[id number] : 1970 54 From: Eveline Bradford DO PCP: Dr. Iris Potter MD Status:ADM IN Location: [facility] [id number] Reason for Visit Reason for Visit: Acute alcohol withdrawal Subjective Subjective Mr. Butts is a 54-year-old white male who presents emergency department at [facility] early on the morning of 08/22/2023 with a chief complaint of alcohol withdrawal. On presentation he admitted to drinking 1/5 ofvodka daily plus multiple screwdrivers. He was admitted here from July 12 through July 14, 2018 and transitioned to [facility] in [facility] for long-term rehabilitation. Clearly, since then he has relapsed. Patient reported he took his also alcohol drink on the morning of 08/20/2024 and had a gradual onset of tremors with heightened anxiety so he decided he wanted to comein for evaluation and treatment. He also complained of increasing abdominal distention that was new and had no previous diagnosis of cirrhosis. Vital signson presentation showed a temperature of 98, heart rate 81, blood pressure 136/90and pulse ox was 97% room air. CBC on presentation showed mild anemia with a hemoglobin of 12.7. This is macrocytic in nature. Platelet count was normal. Coags are pending. Chemistry panel showed elevated serum creatinine 1.53 but was otherwise unremarkable. Liver functions were normal. Liver functions were normal. Toxicology was presumptive positive for benzodiazepines and alcohol level was less than 10. Ultrasound of the abdomen was ordered and pending due to patient's complaint of abdominal swelling. Objective Data Objective Data Vital Signs: Vital Signs Temp Pulse Resp BP Pulse Ox O2 Del Method 98.2 F 68 18 123/69 H 94 Room Air 08/21/24 04:27 08/21/24 04:27 08/21/24 04:27 08/21/24 04:27 08/21/24 04:27 08/21/24 04:48 Oxygen Delivery Method Room Air Weight: 96.1 kg Body Mass Index (BMI) 32.2 Intake & Output: Intake and Output for Last 24 Hours 08/19/24 08/20/24 08/21/24 23:59 23:59 23:59 Intake Total 200 / 200 Balance 200 / 200 Lab / Micro Data 08/21/24 01:05 08/21/24 01:05 Labs: Laboratory Results - last 24 hr 08/21/24 01:05: WBC 7.6, RBC 3.87 L, Hgb 12.7 L, Hct 37.4 L, MCV 96.6 H, MCH 32.8 H, MCHC 34.0, RDW Std Deviation 51.8 H, RDW Coeff of Debbie 14.6, Plt Count 262, MPV 8.6, Immature Gran % (Auto) 0.800, Neut % (Auto) 66.5, Lymph % (Auto) 22.9, Tyrrell % (Auto) 7.2, Eos % (Auto) 2.1, Baso % (Auto) 0.5, Absolute Neuts (auto) 5.1, Absolute Lymphs (auto) 1.75, Nucleated RBC % 0.3, Sodium 135, Potassium 4.4, Chloride 100, Carbon Dioxide 22.2, Anion Gap 13, BUN 25 H, Creatinine 1.53 H, Estim Creat Clear Calc 60.98, Est GFR (MDRD) Non-Af 53 L, BUN/Creatinine Ratio 16.3, Glucose 94, Calcium 9.1, Magnesium 2.0, Total Bilirubin 0.35, AST 20, ALT 8, Alkaline Phosphatase 87, Total Protein 7.5, Albumin 4.3, Globulin 3.3, Albumin/Globulin Ratio 1.3, Ethyl Alcohol < 10.1 08/21/24 01:15: Urine Opiates Screen NEGATIVE, U Buprenorphine Qual NEGATIVE, UrOxycodone Screen NEGATIVE, Urine Methadone Screen NEGATIVE, Urine Fentanyl Screen NEGATIVE, Ur Barbiturates Screen NEGATIVE, Ur Phencyclidine Scrn NEGATIVE, Ur Amphetamines Screen NEGATIVE, U Benzodiazepines Scrn PRESUMPTIVE POSITIVE, Urine Cocaine Screen NEGATIVE, U Cannabinoids Screen NEGATIVE Assessment & Plan Assessment/Plan (1) Alcohol withdrawal: (2) Alcohol dependence: (3) Abdominal distention, non-gaseous: PLAN: Plan Acute alcohol withdrawal -LFTs are within normal limits -Patient is drinking about 1/5 of vodka daily plus multiple mixed drinks -Phenobarbital taper as ordered -Supportive medications as needed -180 consultation pending Abdominal Swelling -Hold on GI consultation for now--> no acute need for GI and if patient is cirrhotic we will treat appropriately and make outpatient referral unless something acute changes -Ultrasound is pending -Coags are pending -LFTs are normal -Patient has mild macrocytic anemia but normal platelet count Macrocytic anemia -Suspect chronic -Hemoglobin appears to be close to baseline -Monitor as needed Elevated serum creatinine -Baseline is unknown -Will repeat in a.m. to reassess Bipolar disorder -Continue escitalopram -Continue fluoxetine -Continue Wellbutrin -Continue as needed hydroxyzine Essential hypertension -Continue home amlodipine -Continue home lisinopril -Continue as needed Xanax but would recommend using sparingly -As needed hydralazine available for systolic pressures greater than 160 Hypothyroidism -Continue home levothyroxine -TSH is just slightly elevated but suspect euthyroid sick syndrome Tobacco abuse -Patient still smoking but recommend cessation strongly -Nicotine patch available Obesity -BMI is 32.2 -Recommend weight loss -Complicates treatment, prognosis, outcomes CODE STATUS -Full code 08/21/24 7646 <Electronically signed by Eveline Sanchez DO> Cosigner Signature (if applicable): CC: ~ Signed [facility] Work Phone: 1(145) 881-361504-08-2025 History and physical note Author Julito Dela Cruz [facility] Note Date/Time August 21, 2024 6:52 am [facility] Medical Records Department [address] [place] [address] H&P Exam - Hospitalist 08/21/24 0325 MR#: [id number] Acct: [id number] Name: CARROLL BUTTS Rep #:[id number] : 1970 54 From: Julito Akers DO PCP: Dr. Iris Potter MD Status:ADM IN Location: [facility] [id number] HPI - General General Date of Admission: 08/21/24 Date of Service: 08/21/24 Chief Complaint: EtOH Withdrawal. HPI Narrative CARROLL BUTTS, is a 54 M with a past medical history of essential hypertension; on amlodipine and lisinopril, hypothyroidism; on levothyroxine, obesity; with a BMI of 32.6 this admission, MONICA, chronic alcohol abuse; with patient admitting to drinking 1/5 of vodka daily plus multiple 'screwdrivers', history of tobacco abuse;with subsequent COPD, history of RA, history of umbilical hernia; s/p repair, history of renal calculi, RLS, bipolar disorder; on escitalopram, fluoxetine, bupropion, alprazolam nightly and as needed hydroxyzine 3 times daily and history of admission here from July 12, 2018 to July 14, 2018 for treatment of acute alcohol withdrawal with patient subsequently transition to [facility] in [place], [place] for long-termrehabilitation who presents to [facility] ER complaining of alcohol withdrawal. Mr. Butts reports his symptoms began approximately shortly after he took his last alcoholic drink on the morning of August 20, 2024 with a gradual-onset of tremors and heightened anxiety so he decided to come in for further evaluation and treatment. He also admits to increasing abdominal distention that is new with patient denying history of cirrhosis or similar previous episodes. His accompanied him at the bedside and helped augment the history. There was no report of fever, chills, nausea, vomiting, diarrhea, abdominal pain, chest pain or headache. In the ER he was noted to have a MADHU less than 10 mg/dL and he was diagnosed with Acute EtOH Withdrawal in the setting of Chronic EtOH Abuse complicated by suspected new-onset Cirrhosis and he was then admitted to the general medical floor for ongoing care for stay thatis expected to extend beyond 2 midnights. [facility] Medical History (Updated 08/21/24 @ 04:[address] Julito Jones, DO) Umbilical hernia Restless legs High cholesterol Substance abuse Alcohol abuse Bipolar disorder Anxiety Depression Hypothyroidism Diabetes Rheumatoid arthritis Kidney stones Smoker Sleep apnea COPD (chronic obstructive pulmonary disease) Irregular heart beat Chest pain Hypertension Home Medications ?Medication ?Instructions ?Recorded ?Last Taken ?Type alprazolam 0.5 mg tablet 0.5 mg PO QHS anxiety Unknown History amlodipine 10 mg tablet 10 mg PO DAILY bp 08/21/24 U nknown History bupropion HCl 150 mg 24 hr tablet, 150 mg PO DAILY dep ression 08/21/24 Unknown History extended release escitalopram oxalate 20 mg tablet 20 mg PO DAILY mood 08/21/24 Unknown History fluoxetine 20 mg capsule 20 mg PO DAILY mood 08/21/24 Unknown History hydroxyzine HCl 25 mg tablet 25 mg PO TID PRN PRN anxi ety 08/21/24 Unknown History levothyroxine 50 mcg tablet 50 mcg PO DAILY thyroid Unknown History lisinopril 10 mg tablet 10 mg PO DAILY bp 08/21/24 U nknown History Allergy/AdvReac Type Severity Reaction Status Date / Time No Known Allergies Allergy Verified 08/21/24 00:07 Social History (System 08/08/18 @ 14:59 by Yoselyn Winchester) Smoking Status: Heavy Smoker (>10/day) ROS ROS Narrative Review of Systems: Constitutional: Patient denies fever or chills. Eyes: Patient denies changes in vision or discharge from eyes. ENT: Patient denies runny nose, sore throat or ear pain. Resp: Patient denies shortness of breath or cough. CV: Patient denies chest pain, palpitations or heart racing. GI: Patient admits to increasing abdominal distention but he denies pain, nausea, vomiting, constipation or diarrhea. : Patient denies dysuria or hematuria. MSK: Patient denies arthralgias or myalgias. Skin: Patient denies rash, abscess, wounds or jaundice. Psych: Patient admits to heightened anxiety but he denies SI or HI. Neuro: Patient admits to tremors in his upper extremities but he denies headache, paresthesias or focal neurologic deficits. Allergy: Patient denies lip swelling, tongue swelling or urticaria. Hematology: Patient denies easy bleeding or easy bruisability. Endocrinology: Patient denies polyuria, polydipsia, polyphagia or heat/cold intolerance. 14 point ROS otherwise negative except for positives noted above in HPI. Vital Signs Vital Signs Vital Signs: 08/21/24 00:05 Temperature 98 F Temperature Source Oral Pulse Rate 81 Respiratory Rate 16 Blood Pressure 136/90 H Blood Pressure Mean 105 Pulse Ox 97 Oxygen Delivery Method Room Air Weight Weight: 214 lb 9.6 oz Body Mass Index (BMI) 32.6 Physical Exam Const alert, oriented x3 and no apparent distress Constitutional Narrative: Obese and tremulous. General Appearance: cooperative HEENT normocephalic, head/scalp atraumatic, hearing grossly normal bilaterally and moist oral mucous membranes Eyes PERRL and EOMs intact bilaterally Neck no lymphadenopathy and supple Resp normal respiratory effort, no retractions, no use of accessory muscles and clearto auscultation bilaterally Cardio regular rate and regular rhythm GI normal to inspection, nondistended, normoactive bowel sounds, soft to palpation,non-tender and non-distended Extremity normal to inspection, full ROM and no clubbing, cyanosis or edema Skin Skin Narrative: Patient has no evidence of rash, abscess, wounds or jaundice. Neuro oriented x3, CN's II-XII intact bilaterally, moves all extremities and no focal motor deficits Sensorium / Orientation: awake, alert, oriented to person, oriented to place andoriented to time Speech: speech normal Psych affect normal Results Medical Records Data Attestation: I reviewed the patient's medical records Lab / Micro Data Attestation: I reviewed the patient's lab results. 08/21/24 01:05 08/21/24 01:05 Labs: Laboratory Results - last 24 hr 08/21/24 01:05: WBC 7.6, RBC 3.87 L, Hgb 12.7 L, Hct 37.4 L, MCV 96.6 H, MCH 32.8 H, MCHC 34.0, RDW Std Deviation 51.8 H, RDW Coeff of Debbie 14.6, Plt Count 262, MPV 8.6, Immature Gran % (Auto) 0.800, Neut % (Auto) 66.5, Lymph % (Auto) 22.9, Tyrrell % (Auto) 7.2, Eos % (Auto) 2.1, Baso % (Auto) 0.5, Absolute Neuts (auto) 5.1, Absolute Lymphs (auto) 1.75, Nucleated RBC % 0.3, Sodium 135, Potassium 4.4, Chloride 100, Carbon Dioxide 22.2, Anion Gap 13, BUN 25 H, Creatinine 1.53 H, Estim Creat Clear Calc 60.98, Est GFR (MDRD) Non-Af 53 L, BUN/Creatinine Ratio 16.3, Glucose 94, Calcium 9.1, Total Bilirubin 0.35, AST 20, ALT 8, Alkaline Phosphatase 87, Total Protein 7.5, Albumin 4.3, Globulin 3.3, Albumin/Globulin Ratio 1.3, Ethyl Alcohol < 10.1 08/21/24 01:15: Urine Opiates Screen NEGATIVE, U Buprenorphine Qual NEGATIVE, UrOxycodone Screen NEGATIVE, Urine Methadone Screen NEGATIVE, Urine Fentanyl Screen NEGATIVE, Ur Barbiturates Screen NEGATIVE, Ur Phencyclidine Scrn NEGATIVE, Ur Amphetamines Screen NEGATIVE, U Benzodiazepines Scrn PRESUMPTIVE POSITIVE, Urine Cocaine Screen NEGATIVE, U Cannabinoids Screen NEGATIVE Assessment & Plan Assessment/Plan (1) Alcohol withdrawal: QUALIFIERS: Complication of substance-induced condition: uncomplicated Qualified Code(s): F10.930 - Alcohol use, unspecified with withdrawal, uncomplicated (2) Alcohol dependence: QUALIFIERS: Complication of substance-induced condition: uncomplicated Substance use status: in withdrawal Qualified Code(s): F10.230 - Alcohol dependence with withdrawal, uncomplicated (3) Cirrhosis: QUALIFIERS: Hepatic cirrhosis type: alcoholic cirrhosis Ascites presence: with ascites Qualified Code(s): K70.31 - Alcoholic cirrhosis of liverwith ascites (4) Bipolar disorder: QUALIFIERS: Active/Remission status: remission status unspecified Qualified Code(s): F31.9 - Bipolar disorder, unspecified (5) Essential (primary) hypertension: (6) Obesity (BMI 30.0-34.9): (7) Tobacco dependence: PLAN: Plan 1. Acute EtOH Withdrawal in setting of Chronic EtOH Abuse; with suspected new Cirrhosis - Admit to general medical floor for treatment under the EtOH detoxification program primarily consisting of phenobarbital taper. EtOH cessation will be strongly encouraged. Give ondansetron ODT as needed for nausea and vomiting. Give ibuprofen as needed for pain or fever. Check PT/INR to evaluate liver synthetic function. Check abdominal ultrasound to confirm suspicion of cirrhosis and quantify amount of ascites. We will consult case management see this patient on rounds in a.m. to help set him up with a RAMP program with help appreciated in advance. Finally, we will consult gastroenterology disease patient on rounds in the a.m. for further recommendations regarding his new cirrhosis with help appreciated in advance. 2. Bipolar disorder; on escitalopram, fluoxetine, bupropion, alprazolam nightlyand as needed hydroxyzine 3 times daily complicating #1 - Maintain home regimen. 3. Essential hypertension; on amlodipine and lisinopril compounding #1 & #2 - Continue home regimen as previous plus give as needed IV hydralazine for systolic blood pressure greater than 160 mmHg. 4. Obesity; with a BMI of 32.6 this admission plus MONICA adding to the burden of disease outlined in #1 - #3 - Weight loss will be recommended. Check TSH. Thiscomplicates his case and may hamper recovery 5. History of tobacco abuse; with subsequent COPD - Tobacco Cessation will be strongly encouraged with Nicotine patch offered to control cravings. 6. History of admission here from July 12, 2018 to July 14, 2018 for treatment of acute alcohol withdrawal with patient subsequently transition to [facility] in [place], [place] for long-term rehabilitation - Noted. 7. Hypothyroidism; on levothyroxine - Resume levothyroxine as before and check TSH. 8. History of RA - Stable with no evidence of acute flare. 9. History of renal calculi - Noted with no evidence of recurrence at this time. 10. RLS - Stable. 11. History of umbilical hernia; s/p repair - Noted. 12. DVT prophylaxis - Lovenox 40 mg q daily. Total time: Approximately (but not less than) 75 minutes. Charges/Coding Visit Charges Inpatient E&M: 14855 Init Hosp L3 08/21/24 0652 <Electronically signed by Julito Jones DO> Cosigner Signature (if applicable): CC: Dr. Iris Potter MD; Dr. Julito Jones DO~ Signed [facility] Work Phone: 1(384) 480-516304-08-2025 Progress note [facility] Medical Records Department [address] [place] [address] Progress Note - Hospitalist 08/21/24826 MR#: [id number] Acct: [id number] Name: CARROLL BUTTS Rep #:[id number] : 1970 54 From: Eveline Bradford DO PCP: Dr. Iris Potter MD Status:ADM IN Location: [facility] IY241-1 Reason for Visit Reason for Visit: Acute alcohol withdrawal Subjective Subjective Mr. Butts is a 54-year-old white male who presents emergency department at [facility] early on the morning of 08/22/2023 with a chief complaint of alcohol withdrawal. On presentation he admitted to drinking 1/5 ofvodka daily plus multiple screwdrivers. He was admitted here from July 12 through July 14, 2018 and transitioned to [facility] in [facility] for long-term rehabilitation. Clearly, since then he has relapsed. Patient reported he took his also alcohol drink on the morning of 08/20/2024 and had a gradual onset of tremors with heightened anxiety so he decided he wanted to comein for evaluation and treatment. He also complained of increasing abdominal distention that was new and had no previous diagnosis of cirrhosis. Vital signson presentation showed atemperature of 98, heart rate 81, blood pressure 136/90and pulse ox was 97% room air. CBC on presentation showed mild anemia with a hemoglobin of 12.7. This is macrocytic in nature. Platelet count was normal. Coags are pending. Chemistry panel showed elevated serum creatinine 1.53 but was otherwiseunremarkable. Liver functions were normal. Liver functions were normal. Toxicology was presumptive positive for benzodiazepines and alcohol level was less than 10. Ultrasound of the abdomen was ordered and pending due to patient's complaint of abdominal swelling. Objective Data Objective Data Vital Signs: Vital Signs Temp Pulse Resp BP Pulse Ox O2 Del Method 98.2 F 68 18 123/69 H 94 Room Air 08/21/24 04:27 08/21/24 04:27 08/21/24 04:27 08/21/24 04:27 08/21/24 04:27 08/21/24 04:48 Oxygen Delivery Method Room Air Weight: 96.1 kg Body Mass Index (BMI) 32.2 Intake & Output: Intake and Output for Last 24 Hours 08/19/24 08/20/24 08/21/24 23:59 23:59 23:59 Intake Total 200 / 200 Balance 200 / 200 Lab / Micro Data 08/21/24 01:05 08/21/24 01:05 Labs: Laboratory Results - last 24 hr 08/21/24 01:05: WBC 7.6, RBC 3.87 L, Hgb 12.7 L, Hct 37.4 L, MCV 96.6 H, MCH 32.8 H, MCHC 34.0, RDWStd Deviation 51.8 H, RDW Coeff of Debbie 14.6, Plt Count 262, MPV 8.6, Immature Gran % (Auto) 0.800, Neut % (Auto) 66.5, Lymph % (Auto) 22.9, Tyrrell % (Auto) 7.2, Eos % (Auto) 2.1, Baso % (Auto) 0.5, Absolute Neuts (auto) 5.1, Absolute Lymphs (auto) 1.75, Nucleated RBC % 0.3, Sodium 135, Potassium 4.4,Chloride 100, Carbon Dioxide 22.2, Anion Gap 13, BUN 25 H, Creatinine 1.53 H, Estim Creat Clear Calc 60.98, Est GFR (MDRD) Non-Af 53 L, BUN/Creatinine Ratio 16.3, Glucose 94, Calcium 9.1, Magnesium 2.0, Total Bilirubin 0.35, AST 20, ALT 8, Alkaline Phosphatase 87, Total Protein 7.5, Albumin 4.3, Globulin 3.3, Albumin/Globulin Ratio 1.3, Ethyl Alcohol < 10.1 08/21/24 01:15: Urine Opiates Screen NEGATIVE, U Buprenorphine Qual NEGATIVE, UrOxycodone Screen NEGATIVE, Urine Methadone Screen NEGATIVE, Urine Fentanyl Screen NEGATIVE, Ur Barbiturates Screen NEGATIVE, Ur Phencyclidine Scrn NEGATIVE, Ur Amphetamines Screen NEGATIVE, U Benzodiazepines Scrn PRESUMPTIVE POSITIVE, Urine Cocaine Screen NEGATIVE, U Cannabinoids Screen NEGATIVE Assessment & Plan Assessment/Plan (1) Alcohol withdrawal: (2) Alcohol dependence: (3) Abdominal distention, non-gaseous: PLAN: Plan Acute alcohol withdrawal -LFTs are within normal limits -Patient is drinking about 1/5 of vodka daily plus multiple mixed drinks -Phenobarbital taper as ordered -Supportive medications as needed -180 consultation pending Abdominal Swelling -Hold on GI consultation for now--> no acute need for GI and if patient is cirrhotic we will treat appropriately and make outpatient referral unless something acute changes -Ultrasound is pending -Coags are pending -LFTs are normal -Patient has mild macrocytic anemia but normal platelet count Macrocytic anemia -Suspect chronic -Hemoglobin appears to be close to baseline -Monitor as needed Elevated serum creatinine -Baseline is unknown -Will repeat in a.m. to reassess Bipolar disorder -Continue escitalopram -Continue fluoxetine -Continue Wellbutrin -Continue as needed hydroxyzine Essential hypertension -Continue home amlodipine -Continue home lisinopril -Continue as needed Xanax but would recommend using sparingly -As needed hydralazine available for systolic pressures greater than 160 Hypothyroidism -Continue home levothyroxine -TSH is just slightly elevated but suspect euthyroid sick syndrome Tobacco abuse -Patient still smoking but recommend cessation strongly -Nicotine patch available Obesity -BMI is 32.2 -Recommend weight loss -Complicates treatment, prognosis, outcomes CODE STATUS -Full code 08/21/24 0840 Cosigner Signature (if applicable): CC: ~ Signed [facility]04-08-2025 Discharge summary Author Jay Maycolaung [facility] Note Date/Time August 21, 2024 6:10 am [facility] Medical Records Department [address] [place] [address] Emergency Department Summary 08/21/24 MR#: [id number] Acct: [id number] Name: CARROLL BUTTS Nayely Rep #:[id number] : 1970 54 From: Jay Crocker DO PCP: Dr. Iris Potter MD Status:ADM IN Location: [place] [address] HPI History of Present Illness Chief Complaint: Substance Abuse Informant: patient and spouse/S.O. Narrative Narrative: Patient is a 54-year-old male with past medical history of hypertension as well as bipolar disorder. He also reports a longstanding history of alcohol abuse/use. 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 He states he has been in rehab beforebut the most recent placement was in 2016. He states that his last drink was at8 AM on August 20. He denies any known history of cirrhosis. However this time he states he wishes to try and get sober once again and therefore comes in for evaluation. He admits alcohol use but states he does not use any other illicit substance. He also denies any progression to delirium tremens/seizures with his previous times in rehab [facility] Medical History (Updated 08/21/24 @ 06:[address] Jay Crocker, ) Umbilical hernia Restless legs High cholesterol Substance abuse Alcohol abuse Bipolar disorder Anxiety Depression Hypothyroidism Diabetes Rheumatoid arthritis Kidney stones Smoker Sleep apnea COPD (chronic obstructive pulmonary disease) Irregular heart beat Chest pain Hypertension Home Medications ?Medication ?Instructions ?Recorded ?Last Taken ?Type alprazolam 0.5 mg tablet 0.5 mg PO QHS anxiety Unknown History amlodipine 10 mg tablet 10 mg PO DAILY bp 08/21/24 U nknown History bupropion HCl 150 mg 24 hr tablet, 150 mg PO DAILY dep ression 08/21/24 Unknown History extended release escitalopram oxalate 20 mg tablet 20 mg PO DAILY mood 08/21/24 Unknown History fluoxetine 20 mg capsule 20 mg PO DAILY mood 08/21/24 Unknown History hydroxyzine HCl 25 mg tablet 25 mg PO TID PRN PRN anxi ety 08/21/24 Unknown History levothyroxine 50 mcg tablet 50 mcg PO DAILY thyroid Unknown History lisinopril 10 mg tablet 10 mg PO DAILY bp 08/21/24 U nknown History Allergy/AdvReac Type Severity Reaction Status Date / Time No Known Allergies Allergy Verified 08/21/24 00:07 Social History (System 08/08/18 @ 14:59 by Yoselyn Winchester) Smoking Status: Heavy Smoker (>10/day) ROS ROS ED Constitutional Constitutional ED: Denies chills or fever(s) Eyes Eyes: Denies blurry vision or change in vision ENT ENT ED: Denies sore throat Cardiovascular Cardiovascular: Denies chest pain, palpitations or racing heartbeat Respiratory/Chest Respiratory/Chest: Denies cough or dyspnea Gastrointestinal Gastrointestinal: Denies abdominal pain, diarrhea, nausea or vomiting Genitourinary Genitourinary ED: Denies dysuria Musculoskeletal Musculoskeletal: Denies myalgias Integumentary Denies rash Neurologic Neurologic: Denies headache(s) Psychiatric Psychiatric: Denies suicidal ideation or suicidal thoughts Hematologic/Lymphatic Hematologic/Lymphatic: Denies easy bleeding or easy bruising EXAM Physical Exam Const Vital Signs: 08/21/24 00:05 08/21/24 02:05 08/21/24 03:37 Temperature 98 F 98 F Temperature Source Oral Pulse Rate 81 89 78 Respiratory Rate 16 16 16 Blood Pressure 136/90 H 145/70 H 133/73 H Blood Pressure Mean 105 95 93 Pulse Ox 97 98 95 Oxygen Delivery Method Room Air Room Air Positive well nourished, well developed and obese General Appearance ED: well developed Nutritional Appearance: obese HEENT HEENT Narrative: Normocephalic atraumatic Eyes PERRL and EOMs intact bilaterally Eyes Narrative: Faint scleral icterus is noted Neck supple and no JVD Resp normal respiratory effort and clear to auscultation bilaterally Cardio regular rate and regular rhythm GI non-tender and no masses GI Narrative: Abdomen is soft with slight distention. There is no pain with palpation. Bowelsounds are normal active. There is faint fluid wave noted concerning for abdominal ascites. No peritoneal signs. No rigidity. No pulsatile mass Auscultation: normoactive bowel sounds Palpation: soft Extremity Extremity Narrative: There is +1 pitting edema to the bilateral lower extremities that is equal and symmetric Negative Homans' sign bilaterally Neuro oriented x3, CN's II-XII intact bilaterally and no sensory deficits noted Neuro Narrative: Patient does have faint tremors of bilateral hands Sensorium / Orientation: alert Motor Exam: strength 5/5 throughout Psych mental status grossly normal Psych Narrative: No homicidal or suicidal ideation Skin no rashes or lesions noted General Skin Exam: Negative for jaundice MDM MDM MDM Narrative Medical decision making narrative: Patient arrived to the ER with stable vitals. He reported approximate 24 hours from his last drink. At this time with the large amount of alcohol he ingested over a prolonged period there is high likelihood for progression to delirium tremens/seizure disorder if he continues without alcohol for another 24 to 48 hours. Secondary to this he was given 130 mg of IV phenobarbital to prevent this. In order to ensure he does not have acute kidney injury severe electrolyte abnormality or acute blood loss anemia from the chronic alcohol use basic blood work was obtained. Labs revealed no clinically significant findings. At this time his CIWA score is low but as he is high likelihood to progress to a critical value if left untreated I do not feel that outpatient therapy is his safest option. Therefore the case was discussed with the hospitalist who agrees to accept the patient for continued care History & Record Review Discussion w/independent historian: Patient and Significant other Lab Data Attestation: I reviewed the patient's lab results. Labs: Laboratory Results - last 24 hr 08/21/24 08/21/24 01:05 01:15 WBC 7.6 RBC 3.87 L Hgb 12.7 L Hct 37.4 L MCV 96.6 H MCH 32.8 H MCHC 34.0 RDW Std Deviation 51.8 H RDW Coeff of Debbie 14.6 Plt Count 262 MPV 8.6 Immature Gran % (Auto) 0.800 Neut % (Auto) 66.5 Lymph % (Auto) 22.9 Tyrrell % (Auto) 7.2 Eos % (Auto) 2.1 Baso % (Auto) 0.5 Absolute Neuts (auto) 5.1 Absolute Lymphs (auto) 1.75 Nucleated RBC % 0.3 Sodium 135 Potassium 4.4 Chloride 100 Carbon Dioxide 22.2 Anion Gap 13 BUN 25 H Creatinine 1.53 H Estim Creat Clear Calc 60.98 Est GFR (MDRD) Non-Af 53 L BUN/Creatinine Ratio 16.3 Glucose 94 Calcium 9.1 Magnesium 2.0 Total Bilirubin 0.35 AST 20 ALT 8 Alkaline Phosphatase 87 Total Protein 7.5 Albumin 4.3 Globulin 3.3 Albumin/Globulin Ratio 1.3 Urine Opiates Screen NEGATIVE U Buprenorphine Qual NEGATIVE Ur Oxycodone Screen NEGATIVE Urine Methadone Screen NEGATIVE Urine Fentanyl Screen NEGATIVE Ur Barbiturates Screen NEGATIVE Ur Phencyclidine Scrn NEGATIVE Ur Amphetamines Screen NEGATIVE U Benzodiazepines Scrn PRESUMPTIVE POSITIVE Urine Cocaine Screen NEGATIVE U Cannabinoids Screen NEGATIVE Ethyl Alcohol < 10.1 Management Discussion w/another healthcare provider: Hospitalist Discharge Plan Dx/Rx/DC Orders Clinical Impression: Alcohol withdrawal, Essential (primary) hypertension, Alcohol dependence, Desire for detoxification, Bipolar disorder Disposition Disposition: Acute Care Hospital [facility] Discharge Date/Time: 08/21/24 04:02 What to do if you have Problems For any increased pain, shortness of breath, bleeding, nausea or vomiting, chestpain, or any unexpected problems, contact your Primary Care Provider. Call [facility] ([phone]) or report to the closest Emergency Room. Call 911 if necessary. 08/21/24 0610 <Electronically signed by Jay Crocker DO> Cosigner Signature (if applicable): CC: Dr. Iris Potter MD ~ Signed [facility] Work Phone: 1([phone]) 221-756104-08-2025 History and physical note [facility] Medical Records Department [address] [place] [id number] H&P Exam - Hospitalist 08/21/24 0325 MR#: [id number] Acct: [id number] Name: CARROLL BUTTS Rep #:[id number] : 1970 54 From: Julito Akers DO PCP: Dr. Iris Potter MD Status:ADM IN Location: [facility] [id number] HPI - General General Date of Admission: 08/21/24 Date of Service: 08/21/24 Chief Complaint: EtOH Withdrawal. HPI Narrative CARROLL BUTTS, is a 54 M with a past medical history of essential hypertension; on amlodipine and lisinopril, hypothyroidism; on levothyroxine, obesity; with a BMI of 32.6 this admission, MONICA, chronic alcohol abuse; with patient admitting to drinking 1/5 of vodka daily plus multiple 'screwdrivers', history of tobacco abuse;with subsequent COPD, history of RA, history of umbilical hernia; s/p repair, history of renal calculi, RLS, bipolar disorder; on escitalopram, fluoxetine, bupropion, alprazolam nightly and as needed hydroxyzine 3 times daily and history of admission here from July 12, 2018 to July 14, 2018 for treatment of acute alcohol withdrawal with patient subsequently transition to [facility] in [place], [place] for long- termrehabilitation who presents to [facility] ER complaining of alcohol withdrawal. Mr. Butts reports his symptoms began approximately shortly after he took his last alcoholic drink on the morning of August 20, 2024 with a gradual-onset of tremors and heightened anxiety so he decided to come in for further evaluation and treatment. He also admits to increasing abdominal distention that is new with patient denying history of cirrhosis or similar previous episodes. His accompanied him at the bedside and helped augment the history. There was no report of fever, chills, nausea, vomiting, diarrhea, abdominal pain, chest pain or headache. In the ER he was noted to have a MADHU less than 10 mg/dL and he was diagnosed with Acute EtOH Withdrawal in the setting of Chronic EtOH Abuse complicated by suspected new-onset Cirrhosis and he was then admitted to the general medical floor for ongoing care for stay thatis expected to extend beyond 2 midnights. [facility] Medical History (Updated 08/21/24 @ 04:[address] Julito Jones, ) Umbilical hernia Restless legs High cholesterol Substance abuse Alcohol abuse Bipolar disorder Anxiety Depression Hypothyroidism Diabetes Rheumatoid arthritis Kidney stones Smoker Sleep apnea COPD (chronic obstructive pulmonary disease) Irregular heart beat Chest pain Hypertension Home Medications ?Medication ?Instructions ?Recorded ?Last Taken ?Type alprazolam 0.5 mg tablet 0.5 mg PO QHS anxiety Unknown History amlodipine 10 mg tablet 10 mg PO DAILY bp 08/21/24 U nknown History bupropion HCl 150 mg 24 hr tablet, 150 mg PO DAILY dep ression 08/21/24 Unknown History extended release escitalopram oxalate 20 mg tablet 20 mg PO DAILY mood 08/21/24 Unknown History fluoxetine 20 mg capsule 20 mg PO DAILY mood 08/21/24 Unknown History hydroxyzine HCl 25 mg tablet 25 mg PO TID PRN PRN anxi ety 08/21/24 Unknown History levothyroxine 50 mcg tablet 50 mcg PO DAILY thyroid Unknown History lisinopril 10 mg tablet 10 mg PO DAILY bp 08/21/24 U nknown History Allergy/AdvReac Type Severity Reaction Status Date / Time No Known Allergies Allergy Verified 08/21/24 00:07 Social History (System 08/08/18 @ 14:59 by Yoselyn Winchester) Smoking Status: Heavy Smoker (>10/day) ROS ROS Narrative Review of Systems: Constitutional: Patient denies fever or chills. Eyes: Patient denies changes in vision or discharge from eyes. ENT: Patient denies runny nose, sore throat or ear pain. Resp: Patient denies shortness of breath or cough. CV: Patient denies chest pain, palpitations or heart racing. GI: Patient admits to increasing abdominal distention but he denies pain, nausea, vomiting, constipation or diarrhea. : Patient denies dysuria or hematuria. MSK: Patient denies arthralgias or myalgias. Skin: Patient denies rash, abscess, wounds or jaundice. Psych: Patient admits to heightened anxiety but he denies SI or HI. Neuro: Patient admits to tremors in his upper extremities but he denies headache, paresthesias or focal neurologic deficits. Allergy: Patient denies lip swelling, tongue swelling or urticaria. Hematology: Patient denies easy bleeding or easy bruisability. Endocrinology: Patient denies polyuria, polydipsia, polyphagia or heat/cold intolerance. 14 point ROS otherwise negative except for positives noted above in HPI. Vital Signs Vital Signs Vital Signs: 08/21/24 00:05 Temperature 98 F Temperature Source Oral Pulse Rate 81 Respiratory Rate 16 Blood Pressure 136/90 H Blood Pressure Mean 105 Pulse Ox 97 Oxygen Delivery Method Room Air Weight Weight: 214 lb 9.6 oz Body Mass Index (BMI) 32.6 Physical Exam Const alert, oriented x3 and no apparent distress Constitutional Narrative: Obese and tremulous. General Appearance: cooperative HEENT normocephalic, head/scalp atraumatic, hearing grossly normal bilaterally and moist oral mucous membranes Eyes PERRL and EOMs intact bilaterally Neck no lymphadenopathy and supple Resp normal respiratory effort, no retractions, no use of accessory muscles and clearto auscultation bilaterally Cardio regular rate and regular rhythm GI normal to inspection, nondistended, normoactive bowel sounds, soft to palpation,non-tender and non-distended Extremity normal to inspection, full ROM and no clubbing, cyanosis or edema Skin Skin Narrative: Patient has no evidence of rash, abscess, wounds or jaundice. Neuro oriented x3, CN's II-XII intact bilaterally, moves all extremities and no focal motor deficits Sensorium / Orientation: awake, alert, oriented to person, oriented to place andoriented to time Speech: speech normal Psych affect normal Results Medical Records Data Attestation: I reviewed the patient's medical records Lab / Micro Data Attestation: I reviewed the patient's lab results. 08/21/24 01:05 08/21/24 01:05 Labs: Laboratory Results - last 24 hr 08/21/24 01:05: WBC 7.6, RBC 3.87 L, Hgb 12.7 L, Hct 37.4 L, MCV 96.6 H, MCH 32.8 H, MCHC 34.0, RDWStd Deviation 51.8 H, RDW Coeff of Debbie 14.6, Plt Count 262, MPV 8.6, Immature Gran % (Auto) 0.800, Neut % (Auto) 66.5, Lymph % (Auto) 22.9, Tyrrell % (Auto) 7.2, Eos % (Auto) 2.1, Baso % (Auto) 0.5, Absolute Neuts (auto) 5.1, Absolute Lymphs (auto) 1.75, Nucleated RBC % 0.3, Sodium 135, Potassium 4.4,Chloride 100, Carbon Dioxide 22.2, Anion Gap 13, BUN 25 H, Creatinine 1.53 H, Estim Creat Clear Calc 60.98, Est GFR (MDRD) Non-Af 53 L, BUN/Creatinine Ratio 16.3, Glucose 94, Calcium 9.1, Total Bilirubin 0.35, AST 20, ALT 8, Alkaline Phosphatase 87, Total Protein 7.5, Albumin 4.3, Globulin 3.3, Albumin/Globulin Ratio 1.3, Ethyl Alcohol < 10.1 08/21/24 01:15: Urine Opiates Screen NEGATIVE, U Buprenorphine Qual NEGATIVE, UrOxycodone Screen NEGATIVE, Urine Methadone Screen NEGATIVE, Urine Fentanyl Screen NEGATIVE, Ur Barbiturates Screen NEGATIVE, Ur Phencyclidine Scrn NEGATIVE, Ur Amphetamines Screen NEGATIVE, U Benzodiazepines Scrn PRESUMPTIVE POSITIVE, Urine Cocaine Screen NEGATIVE, U Cannabinoids Screen NEGATIVE Assessment & Plan Assessment/Plan (1) Alcohol withdrawal: QUALIFIERS: Complication of substance-induced condition: uncomplicated Qualified Code(s): F10.930 -Alcohol use, unspecified with withdrawal, uncomplicated (2) Alcohol dependence: QUALIFIERS: Complication of substance-induced condition: uncomplicated Substance use status: in withdrawal Qualified Code(s): F10.230 - Alcohol dependence with withdrawal, uncomplicated (3) Cirrhosis: QUALIFIERS: Hepatic cirrhosis type: alcoholic cirrhosis Ascites presence: with ascites Qualified Code(s): K70.31 - Alcoholic cirrhosis of liverwith ascites (4) Bipolar disorder: QUALIFIERS: Active/Remission status: remission status unspecified Qualified Code(s): F31.9 - Bipolar disorder, unspecified (5) Essential (primary) hypertension: (6) Obesity (BMI 30.0-34.9): (7) Tobacco dependence: PLAN: Plan 1. Acute EtOH Withdrawal in setting of Chronic EtOH Abuse; with suspected new Cirrhosis - Admit to general medical floor for treatment under the EtOH detoxification program primarily consisting of phenobarbital taper. EtOH cessation will be strongly encouraged. Give ondansetron ODT as needed for nausea and vomiting. Give ibuprofen as needed for pain or fever. Check PT/INR to evaluate liver synthetic function. Check abdominal ultrasound to confirm suspicion of cirrhosis and quantify amount of ascites. We will consult case management see this patient on rounds in a.m. to help set him up with a RAMP program with help appreciated in advance. Finally, we will consult gastroenterology disease patient on rounds in the a.m. for further recommendations regarding his new cirrhosis with help appreciated in advance. 2. Bipolar disorder; on escitalopram, fluoxetine, bupropion, alprazolam nightlyand as needed hydroxyzine 3 times daily complicating #1 - Maintain home regimen. 3. Essential hypertension; on amlodipine and lisinopril compounding #1 & #2 - Continue home regimen as previous plus give as needed IV hydralazine for systolic blood pressure greater than 160 mmHg. 4. Obesity; with a BMI of 32.6 this admission plus MONICA adding to the burden of disease outlined in #1 - #3 - Weight loss will be recommended. Check TSH. Thiscomplicates his case and may hamper recovery 5. History of tobacco abuse; with subsequent COPD - Tobacco Cessation will be strongly encouraged with Nicotine patch offered to control cravings. 6. History of admission here from July 12, 2018 to July 14, 2018 for treatment of acute alcoholwithdrawal with patient subsequently transition to [facility] in [place], [place] for long-term rehabilitation - Noted. 7. Hypothyroidism; on levothyroxine - Resume levothyroxine as before and check TSH. 8. History of RA - Stable with no evidence of acute flare. 9. History of renal calculi - Noted with no evidence of recurrence at this time. 10. RLS - Stable. 11. History of umbilical hernia; s/p repair - Noted. 12. DVT prophylaxis - Lovenox 40 mg q daily. Total time: Approximately (but not less than) 75 minutes. Charges/Coding Visit Charges Inpatient E&M: 00650 Init Hosp L3 08/21/24 0652 Cosigner Signature (if applicable): CC: Dr. Iris Potter MD; Dr. Julito Jones DO~ Signed [facility]04-08-2025 Discharge summary [facility] Medical Records Department [address] [place] [address] Emergency Department Summary 08/21/24 MR#: [id number] Acct: [id number] Name: CARROLL BUTTS Rep #:[id number] : 1970 54 From: Jay Crocker DO PCP: Dr. Iris Potter MD Status:ADM IN Location: [address] History of Present Illness Chief Complaint: Substance Abuse Informant: patient and spouse/S.O. Narrative Narrative: Patient is a 54-year-old male with past medical history of hypertension as well as bipolar disorder. He also reports a longstanding history of alcohol abuse/use. 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 He states he has been in rehab beforebut the most recent placement was in 2016. He states that his last drink was at8 AM on August 20. He denies any known history of cirrhosis. However this time he states he wishes to try and get sober once again and therefore comes in for evaluation. He admits alcohol use but states he does not use any other illicit substance. He also denies any progression to delirium tremens/seizures with his previous times in rehab [facility] Medical History (Updated 08/21/24 @ 06:[address] Jay Crocker DO) Umbilical hernia Restless legs High cholesterol Substance abuse Alcohol abuse Bipolar disorder Anxiety Depression Hypothyroidism Diabetes Rheumatoid arthritis Kidney stones Smoker Sleep apnea COPD (chronic obstructive pulmonary disease) Irregular heart beat Chest pain Hypertension Home Medications ?Medication ?Instructions ?Recorded ?Last Taken ?Type alprazolam 0.5 mg tablet 0.5 mg PO QHS anxiety Unknown History amlodipine 10 mg tablet 10 mg PO DAILY bp 08/21/24 U nknown History bupropion HCl 150 mg 24 hr tablet, 150 mg PO DAILY dep ression 08/21/24 Unknown History extended release escitalopram oxalate 20 mg tablet 20 mg PO DAILY mood 08/21/24 Unknown History fluoxetine 20 mg capsule 20 mg PO DAILY mood 08/21/24 Unknown History hydroxyzine HCl 25 mg tablet 25 mg PO TID PRN PRN anxi ety 08/21/24 Unknown History levothyroxine 50 mcg tablet 50 mcg PO DAILY thyroid Unknown History lisinopril 10 mg tablet 10 mg PO DAILY bp 08/21/24 U nknown History Allergy/AdvReac Type Severity Reaction Status Date / Time No Known Allergies Allergy Verified 08/21/24 00:07 Social History (System 08/08/18 @ 14:59 by Yoselyn Winchester) Smoking Status: Heavy Smoker (>10/day) ROS ROS ED Constitutional Constitutional ED: Denies chills or fever(s) Eyes Eyes: Denies blurry vision or change in vision ENT ENT ED: Denies sore throat Cardiovascular Cardiovascular: Denies chest pain, palpitations or racing heartbeat Respiratory/Chest Respiratory/Chest: Denies cough or dyspnea Gastrointestinal Gastrointestinal: Denies abdominal pain, diarrhea, nausea or vomiting Genitourinary Genitourinary ED: Denies dysuria Musculoskeletal Musculoskeletal: Denies myalgias Integumentary Denies rash Neurologic Neurologic: Denies headache(s) Psychiatric Psychiatric: Denies suicidal ideation or suicidal thoughts Hematologic/Lymphatic Hematologic/Lymphatic: Denies easy bleeding or easy bruising EXAM Physical Exam Const Vital Signs: 08/21/24 00:05 08/21/24 02:05 08/21/24 03:37 Temperature 98 F 98 F Temperature Source Oral Pulse Rate 81 89 78 Respiratory Rate 16 16 16 Blood Pressure 136/90 H 145/70 H 133/73 H Blood Pressure Mean 105 95 93 Pulse Ox 97 98 95 Oxygen Delivery Method Room Air Room Air Positive well nourished, well developed and obese General Appearance ED: well developed Nutritional Appearance: obese HEENT HEENT Narrative: Normocephalic atraumatic Eyes PERRL and EOMs intact bilaterally Eyes Narrative: Faint scleral icterus is noted Neck supple and no JVD Resp normal respiratory effort and clear to auscultation bilaterally Cardio regular rate and regular rhythm GI non-tender and no masses GI Narrative: Abdomen is soft with slight distention. There is no pain with palpation. Bowelsounds are normal active. There is faint fluid wave noted concerning for abdominal ascites. No peritoneal signs. No rigidity. No pulsatile mass Auscultation: normoactive bowel sounds Palpation: soft Extremity Extremity Narrative: There is +1 pitting edema to the bilateral lower extremities that is equal and symmetric Negative Homans' sign bilaterally Neuro oriented x3, CN's II-XII intact bilaterally and no sensory deficits noted Neuro Narrative: Patient does have faint tremors of bilateral hands Sensorium / Orientation: alert Motor Exam: strength 5/5 throughout Psych mental status grossly normal Psych Narrative: No homicidal or suicidal ideation Skin no rashes or lesions noted General Skin Exam: Negative for jaundice MDM MDM MDM Narrative Medical decision making narrative: Patient arrived to the ER with stable vitals. He reported approximate 24 hours from his last drink.At this time with the large amount of alcohol he ingested over a prolonged period there is high likelihood for progression to delirium tremens/seizure disorder if he continues without alcohol for another 24 to 48 hours. Secondary to this he was given 130 mg of IV phenobarbital to prevent this. In order to ensure he does not have acute kidney injury severe electrolyte abnormality or acute blood loss anemia from the chronic alcohol use basic blood work was obtained. Labs revealed no clinically significant findings. At this time his CIWA score is low but as he is high likelihood to progress to acritical value if left untreated I do not feel that outpatient therapy is his safest option. Therefore the case was discussed with the hospitalist who agrees to accept the patient for continued care History & Record Review Discussion w/independent historian: Patient and Significant other Lab Data Attestation: I reviewed the patient's lab results. Labs: Laboratory Results - last 24 hr 08/21/24 08/21/24 01:05 01:15 WBC 7.6 RBC 3.87 L Hgb 12.7 L Hct 37.4 L MCV 96.6 H MCH 32.8 H MCHC 34.0 RDW Std Deviation 51.8 H RDW Coeff of Debbie 14.6 Plt Count 262 MPV 8.6 Immature Gran % (Auto) 0.800 Neut % (Auto) 66.5 Lymph % (Auto) 22.9 Tyrrell % (Auto) 7.2 Eos % (Auto) 2.1 Baso % (Auto) 0.5 Absolute Neuts (auto) 5.1 Absolute Lymphs (auto) 1.75 Nucleated RBC % 0.3 Sodium 135 Potassium 4.4 Chloride 100 Carbon Dioxide 22.2 Anion Gap 13 BUN 25 H Creatinine 1.53 H Estim Creat Clear Calc 60.98 Est GFR (MDRD) Non-Af 53 L BUN/Creatinine Ratio 16.3 Glucose 94 Calcium 9.1 Magnesium 2.0 Total Bilirubin 0.35 AST 20 ALT 8 Alkaline Phosphatase 87 Total Protein 7.5 Albumin 4.3 Globulin 3.3 Albumin/Globulin Ratio 1.3 Urine Opiates Screen NEGATIVE U Buprenorphine Qual NEGATIVE Ur Oxycodone Screen NEGATIVE Urine Methadone Screen NEGATIVE Urine Fentanyl Screen NEGATIVE Ur Barbiturates Screen NEGATIVE Ur Phencyclidine Scrn NEGATIVE Ur Amphetamines Screen NEGATIVE U Benzodiazepines Scrn PRESUMPTIVE POSITIVE Urine Cocaine Screen NEGATIVE U Cannabinoids Screen NEGATIVE Ethyl Alcohol < 10.1 Management Discussion w/another healthcare provider: Hospitalist Discharge Plan Dx/Rx/DC Orders Clinical Impression: Alcohol withdrawal, Essential (primary) hypertension, Alcohol dependence, Desire for detoxification, Bipolar disorder Disposition Disposition: Acute Care Hospital [facility] Discharge Date/Time: 08/21/24 04:02 What to do if you have Problems For any increased pain, shortness of breath, bleeding, nausea or vomiting, chestpain, or any unexpected problems, contact your Primary Care Provider. Call [facility] ([phone]) or report tothe closest Emergency Room. Call 911 if necessary. 08/21/24 0610 Cosigner Signature (if applicable): CC: Dr. Iris Potter MD ~ Signed [facility]04-08-2025 Evaluation note* Diagnosis Onset Date Resolution Status Admit Date Abdominal distention, non-gaseous acute August 21, 2024 3:45am Alcohol withdrawal acute August 21, 2024 3:45am Bipolar disorder acute August 3:45am Desire for detoxification acute August 21, 2024 3:45am Obesity (BMI 30.0-34.9) acute A pril 2024 3:45am Alcohol dependence chronic August 21, 2024 3:45am Essential (primary) hypertension chr onic August 21, 2024 3:45am Tobacco dependence chronic August 21, 2024 3:45am Cirrhosis deleted August 21 3:45am [facility] Work Phone: Evaluation + Plan note No data available for this section [facility] Evaluation noteNo assessment information available [facility] Work Phone: Evaluation note* Diagnosis Onset Date Resolution Status Admit Date Alcohol withdrawal acute August 21, 2024 3:45am Bipolar disorder acute August 3:45am Obesity (BMI 30.0-34.9) acute A pril 2024 3:45am Alcohol dependence chronic August 21, 2024 3:45am Essential (primary) hypertension chr onic August 21, 2024 3:45am Tobacco dependence chronic August 21, 2024 3:45am [facility] Work Phone: Hospital Discharge instructions No data available for this section [facility] Progress note No data available for this section [facility] Reason for referral (narrative)No reason for referral information [facility] Work Phone: Summary Purpose Family History No Family History Records Found Relationship Condition Age at Onset Recorded Date/T akanksha Unknown Family History?- Unknown July 122018 2:20pm Advance Directives No Advanced Directives Records Found Advance Directive Response Recorded Date/ Time Living Will No August 21, 2024 12:58am Do you have a Healthcare Power of Counter Supervisor? No August 21, 2024 12:58am Advance Directive Response Recorded Date/ Time Living Will No August 21, 2024 4:38am Do you have a Healthcare Power of Counter Supervisor? No August 21, 2024 4:38am Chief Complaint and Reason for Visit Chief Complaint Admit Date INT LABS July 30, 2024 6:1 1am Chief Complaint Admit Date INT LABS July 30, 2024 6:1 1am ACUTE ETOH WITHDRAWAL August 21, 2024 3: 45am Reason for Visit Admit Date Alcohol withdrawal August 21, 2024 3:45 am Bipolar disorder August 21, 2024 3:45 am Obesity (BMI 30.0-34.9) August 21, 2024 3:45am Alcohol dependence August 21, 2024 3:45 am Essential (primary) hypertension August 212024 3:45am Tobacco dependence August 21, 2024 3:45 am Chief Complaint Admit Date INT LABS July 30, 2024 6:1 1am ACUTE ETOH WITHDRAWAL August 21, 2024 3: 45am ACUTE ETOH WITHDRAWAL August 22, 2024 7: 27am ACUTE ETOH WITHDRAWAL August 23, 2024 1 :54pm Reason for Visit Admit Date Abdominal distention, non-gaseous August 21, 2024 3:45am Alcohol withdrawal August 21, 2024 3:45 am Bipolar disorder August 21, 2024 3:45 am Desire for detoxification August 21 3:45am Obesity (BMI 30.0-34.9) August 21, 2024 3:45am Alcohol dependence August 21, 2024 3:45 am Essential (primary) hypertension August 212024 3:45am Tobacco dependence August 21, 2024 3:45 am Cirrhosis August 21, 2024 3:45 am Chief Complaint Admit Date INT LABS July 30, 2024 6:1 1am ACUTE ETOH WITHDRAWAL August 21, 2024 3: 45am ACUTE ETOH WITHDRAWAL August 22, 2024 7: 27am ACUTE ETOH WITHDRAWAL August 23, 2024 1 :54pm ACUTE ETOH WITHDRAWAL August 24, 2024 1 2:02pm Additional Source Comments (unrecognized sect ion and content) No Status Records FoundNo Status Records FoundNo Status Records FoundNo Status Records FoundNo Status Records Found INFORMATION SOURCE (unrecogn ized section and content) DATE CREATED AUTHOR 11/09/2017 [facility] DATE CREATED AUTHOR AUTHOR'S ORGANIZ ATION 08/18/2018 [facility] DATE CREATED AUTHOR AUTHOR'S ORGANIZ ATION 01/03/2019 [facility] ([place]) DATE CREATED AUTHOR AUTHOR'S ORGANIZ ATION 06/12/2024 [facility] DATE CREATED AUTHOR AUTHOR'S ORGANIZ ATION [facility]07/[address] [facility] team informatio n (unrecognized section and content) Team Status: Active Member Role Status Dates Iris Potter MD Primary Care Provider Active Team Status: Inactive Member Role Status Dates Iris Potter MD Primary Care Provider Active St art: July 30, 2024 End: July 30, 2024 Iris Potter MD Attending Provider Active Start : July 30, 2024 End: July 30, 2024 Iris Potter MD Referring Provider Active Start : July 30, 2024 End: July 30, 2024 Team Status: Active Member Role Status Dates Iris Potter MD Primary Care Provider Active St art: August 21, 2024 Dr. Jay Crocker , DO Emergency Provider Active Start: August 21, 2024 Dr. Julito Jones , DO Admit Provider Active Start: August 21, 2024 Dr. Julito Jones , DO Attending Provider Active Start: August 21, 2024 Team Status: Inactive Member Role Status Dates Iris Potter MD Primary Care Provider Active St art: August 21, 2024 End: August 24, 2024 Dr. Jay Crocker , DO Emergency Provider Active Start: August 21, 2024 End: August 24, 2024 Dr. Julito Jones , DO Admit Provider Active Start: August 21, 2024 End: August 24, 2024 Dr. Julito Jones , DO Other Provider Active Start: August 21, 2024 End: August 24, 2024 Dr. Eveline Bradford , DO Attending Provider Active S tart: August 21, 2024 End: August 24, 2024 Team Status: Active Member Role Status Dates Iris Potter MD Primary Care Provider Active St art: August 22, 2024 Dr. Jay Crocker , DO Emergency Provider Active Start: August 22, 2024 Dr. Julito Jones , DO Admit Provider Active Start: August 22, 2024 Dr. Julito Jones , DO Other Provider Active Start: August 22, 2024 Dr. Eveline Bradford , DO Attending Provider Active S tart: August 22, 2024 Dr. Eveline Bradford , DO Other Provider Active Start : August 22, 2024 Team Status: Active Member Role Status Dates Iris Potter MD Primary Care Provider Active St art: August 23, 2024 Dr. Jay Crocker , DO Emergency Provider Active Start: August 23, 2024 Dr. Julito Jones , DO Admit Provider Active Start: August 23, 2024 Dr. Julito Jones , DO Other Provider Active Start: August 23, 2024 Dr. Eveline Bradford , DO Attending Provider Active S tart: August 23, 2024 Dr. Eveline Bradford , DO Other Provider Active Start : August 23, 2024 Team Status: Active Member Role Status Dates Iris Potter MD Primary Care Provider Active St art: August 24, 2024 Dr. Jay Crocker , DO Emergency Provider Active Start: August 24, 2024 Dr. Julito Jones , DO Admit Provider Active Start: August 24, 2024 Dr. Julito Jones , DO Other Provider Active Start: August 24, 2024 Dr. Eveline Bradford , DO Attending Provider Active S tart: August 24, 2024 Dr. Eveline Brdaford , DO Other Provider Active Start : August 24, 2024 Team Status: Inactive Member Role Status Dates Iris Potter MD Primary Care Provider Active St art: August 24, 2024 End: August 24, 2024 Iris Potter MD Attending Provider Active Start : August 24, 2024 End: August 24, 2024 Iris Potter MD Referring Provider Active Start : August 24, 2024 End: August 24, 2024 Goals (unrecognized section and content) Goals may be documented in a n alternate section FOR RECORDS PERTAINING TO PATIENTS WHO ARE OR HAVE BEEN ENROLLED IN A CHEMICAL DEPENDENCY/SUBSTANCEABUSE PROGRAM, SOME INFORMATION MAY BE OMITTED. This clinical summary was aggregated from multiple sources. Caution should be exercised in using it in the provision of clinical care. This summary normalizes information from multiple sources, and as a consequence, information in this document may materially change the coding, format and clinical context of patient data. In addition, data may be omitted in some cases. CLINICAL DECISIONS SHOULD BE BASED ON THE PRIMARY CLINICAL RECORDS. [employer] provides no warranty or guarantee of the accuracy or completeness of information in this document.
[2024-11-06 00:32] VITALS: BP 94/67; PULSE 85; RESP 18; TEMP 36.8; O2SAT 92
[2024-11-06] MEDS: MELATONIN 3 MG TABLET 10 MG PO (00:40)
[2024-11-06] MEDS: Phenobarbital 32.4 MG Tablet 64.8 MG PO ×6 (00:40→20:06)
[2024-11-06] MEDS: hydrOXYzine PAM 25 MG Capsule 50 MG PO (00:40)
[2024-11-06] MEDS: Dicyclomine 10 MG Capsule 20 MG PO ×2 (00:41→12:31)
[2024-11-06 04:35] VITALS: BP 110/81; PULSE 82; RESP 18; TEMP 36.6
[2024-11-06] MEDS: 0.9% Normal Saline (1000mL) 1,000 ML 100 ML IV (04:42)
[2024-11-06] MEDS: Levothyroxine 75 MCG Tablet PO (04:42)
[2024-11-06 06:45] LABS: Anion Gap 10 (5-15); BUN 21 mg/dL (4-19); BUN/Creat Ratio 13.5 RATIO (10-20); Calcium,Total 8.4 mg/dL (7.6-11.0); Carbon Dioxide 24.1 mmol/L (21.0-32.0); Chloride 103 mmol/L (98-108); Creatinine, Serum 1.58 mg/dL (0.70-1.20); EST Glomerular Filtration Rate 51 (>60); Estimated Creatinine Clearance 58.72 ml/min (50-250); Glucose 100 mg/dL (70-99); Potassium 4.6 mmol/L (3.3-5.1); Sodium Level 137 mmol/L (133-145)
[2024-11-06 07:41] VITALS: BP 99/79; PULSE 64; RESP 18; TEMP 36.4
[2024-11-06 08:00] VITALS: BP 99/79; PULSE 64; RESP 18; TEMP 36.4; O2SAT 97
[2024-11-06] MEDS: Folic Acid 1 MG Tablet PO (08:28)
[2024-11-06] MEDS: Thiamine Hydrochloride 100 MG Tablet PO (09:12)
[2024-11-06] MEDS: Escitalopram Oxalate 20 MG Tablet PO (09:12)
[2024-11-06] MEDS: buPROPion (XL) 150 MG TABLET.XL PO (09:12)
[2024-11-06] MEDS: CARIPRAZINE HCL 1.5 MG CAPSULE PO (09:13)
--- NOTE | 2024-11-06 11:36 | PCM.PN.HOSP ---
Reason for Visit Reason for Visit: Diagnoses Alcohol use, unspecified with withdrawal, unspecified (11/05/24) Subjective Subjective Saw patient at bedside this morning. Patient was sitting back comfortably in bed and in no acute distress. Noted that his withdrawal symptoms were improved from yesterday. No other acute concerns this morning. Objective Data Objective Data Vital Signs: Vital Signs Temp Pulse Resp BP Pulse Ox O2 Del Method 97.6 F L 64 18 99/79 18 Room Air 11/06/24 08:00 11/06/24 08:00 11/06/24 08:00 11/06/24 08:00 11/06/24 08:00 11/06/24 08:00 Oxygen Delivery Method Room Air Weight: 96.2 kg Body Mass Index (BMI) 31.4 Intake & Output: Intake and Output for Last 24 Hours 11/04/24 11/05/24 11/06/24 23:59 23:59 23:59 Intake Total 935 / 935 Balance 935 / 935 Lab / Micro Data 11/05/24 18:00 11/06/24 05:11 Labs: Laboratory Results - last 24 hr 11/05/24 18:00: WBC 5.0, RBC 3.85 L, Hgb 12.5 L, Hct 37.0 L, MCV 96.1 H, MCH 32.5 H, MCHC 33.8, RDW Std Deviation 53.1 H, RDW Coeff of Debbie 15.2 H, Plt Count 275, MPV 8.6, Immature Gran % (Auto) 1.600 H, Neut % (Auto) 58.3, Lymph % (Auto) 28.4, Kimble % (Auto) 8.5, Eos % (Auto) 2.4, Baso % (Auto) 0.8, Absolute Neuts (auto) 2.9, Absolute Lymphs (auto) 1.43, Nucleated RBC % 0.6, Sodium 136, Potassium 4.9, Chloride 100, Carbon Dioxide 22.6, Anion Gap 13, BUN 21 H, Creatinine 1.55 H, Estim Creat Clear Calc 60.86, Est GFR (MDRD) Non-Af 52 L, BUN/Creatinine Ratio 13.5, Glucose 92, Calcium 8.7, Total Bilirubin 0.20, AST 14, ALT 8, Alkaline Phosphatase 90, Total Protein 6.8, Albumin 4.0, Globulin 2.8, Albumin/Globulin Ratio 1.4, Lipase 42, Ethyl Alcohol 47.9 H 11/05/24 18:48: Urine Opiates Screen NEGATIVE, U Buprenorphine Qual NEGATIVE, Ur Oxycodone Screen NEGATIVE, Urine Methadone Screen NEGATIVE, Urine Fentanyl Screen NEGATIVE, Ur Barbiturates Screen NEGATIVE, Ur Phencyclidine Scrn NEGATIVE, Ur Amphetamines Screen NEGATIVE, U Benzodiazepines Scrn PRESUMPTIVE POSITIVE, Urine Cocaine Screen NEGATIVE, U Cannabinoids Screen NEGATIVE 11/06/24 05:11: Sodium 137, Potassium 4.6, Chloride 103, Carbon Dioxide 24.1, Anion Gap 10, BUN 21 H, Creatinine 1.58 H, Estim Creat Clear Calc 58.72, Est GFR (MDRD) Non-Af 51 L, BUN/Creatinine Ratio 13.5, Glucose 100 H, Calcium 8.4 Physical Exam Const alert, oriented x3 and no apparent distress Constitutional Narrative: Middle-age male, class I obesity, sitting back comfortably in bed, conversing normally, in no acute distress. General Appearance: cooperative and comfortable HEENT normocephalic, head/scalp atraumatic, hearing grossly normal bilaterally, nasal mucous membranes and turbinates normal and moist oral mucous membranes Eyes PERRL, EOMs intact bilaterally and conjunctivae normal Neck full ROM Chest inspection of chest normal Resp normal respiratory effort, normal air movement, no use of accessory muscles and clear to auscultation bilaterally Cardio regular rate, regular rhythm, no murmurs and peripheral pulses 2+ throughout GI normal to inspection, nondistended, normoactive bowel sounds, soft to palpation, non-tender and non-distended Back/Spine normal ROM Extremity normal to inspection, full ROM and no pedal edema Skin no rashes or lesions noted Psych mental status grossly normal Assessment & Plan Assessment/Plan (1) Alcohol withdrawal: (2) Desire for detoxification: PLAN: Plan Patient is a 54-year-old male who presented [facility] ED on 11/05/2024 for alcohol detox. 1. Alcohol abuse with withdrawal and desire for detox ? Case management following. Recent hospitalization here in August for alcohol detox as well. Alcohol level 47 on admit with withdrawal symptoms noted. Treating with phenobarbital taper and other as needed medications per alcohol withdrawal order set with good improvement in symptoms. Appreciate case management assistance on discharge planning. 2. Mild FRANK ? Creatinine 1.55 on admit, baseline around 1.1-1.2. Suspect mild prerenal etiology from dehydration. Given IV fluid resuscitation on admit and encouraging p.o. intake. Monitor daily BMP and urine output. Chronic medical conditions: ? Hypertension: Continue home amlodipine. Holding home lisinopril in setting of elevated creatinine as above. ? Anxiety/depression: Continue home bupropion, escitalopram and cariprazine. ? Hypothyroidism: Continue home Synthroid. DVT prophylaxis: Lovenox CODE STATUS: Full code, verified Expected disposition: Home, 2 to 3 days Total clinical time spent by myself addressing the patient's medical issues, reviewing all the data, and collaborating with patient's care team: 25 minutes. Charges/Coding Visit Charges Inpatient E&M: 04382 Subs Hosp L1
[2024-11-06 14:51] VITALS: BP 108/80; PULSE 74; RESP 18; TEMP 36.8; O2SAT 97
[2024-11-06 19:59] VITALS: BP 93/62; PULSE 75; RESP 18; TEMP 36.8; O2SAT 96
[2024-11-07] MEDS: Phenobarbital 32.4 MG Tablet 64.8 MG PO ×7 (00:46→23:30)
[2024-11-07 03:50] VITALS: BP 112/67; PULSE 67; RESP 18; TEMP 36.6; O2SAT 95
[2024-11-07 05:53] LABS: Hematocrit 32.6 % (40-54); Hemoglobin 10.8 g/dL (13.0-16.5); Mean Corp Hgb Conc 33.1 g/dL (32-36); Mean Corpuscular Hgb 32.2 pg (27.0-32.0); Mean Corpuscular Volume 97.3 fL (80-94); Mean Platelet Vol. 8.7 fl (6.2-12.0); Platelet Count 235 K/mm3 (150-450); RBC Distribution Width SD 53.1 fl (35.1-43.9); Red Blood Count 3.35 M/mm3 (4.6-6.2); White Blood Count 4.9 K/mm3 (4.4-11.0)
[2024-11-07 06:34] LABS: Anion Gap 10 (5-15); BUN 17 mg/dL (4-19); BUN/Creat Ratio 10.8 RATIO (10-20); Calcium,Total 8.6 mg/dL (7.6-11.0); Carbon Dioxide 24.4 mmol/L (21.0-32.0); Chloride 101 mmol/L (98-108); Creatinine, Serum 1.59 mg/dL (0.70-1.20); EST Glomerular Filtration Rate 51 (>60); Estimated Creatinine Clearance 58.35 ml/min (50-250); Glucose 113 mg/dL (70-99); Potassium 4.4 mmol/L (3.3-5.1); Sodium Level 135 mmol/L (133-145)
[2024-11-07] MEDS: Levothyroxine 75 MCG Tablet PO (06:59)
[2024-11-07 07:36] VITALS: BP 124/77; PULSE 72; RESP 18; TEMP 36.6; O2SAT 96
[2024-11-07] MEDS: Folic Acid 1 MG Tablet PO (07:39)
[2024-11-07] MEDS: Thiamine Hydrochloride 100 MG Tablet PO (07:39)
[2024-11-07] MEDS: CARIPRAZINE HCL 1.5 MG CAPSULE PO (09:46)
[2024-11-07] MEDS: Escitalopram Oxalate 20 MG Tablet PO (09:46)
[2024-11-07] MEDS: buPROPion (XL) 150 MG TABLET.XL PO (09:46)
[2024-11-07] MEDS: amLODIPine 10 MG Tablet PO (09:46)
[2024-11-07] MEDS: Enoxaparin 40 MG/0.4 ML Syringe SC (09:48)
--- NOTE | 2024-11-07 11:33 | ADDICTION ---
Met with patient to complete RAMP assessments. He reports that he was to follow up at [facility] last time in detox but did not follow through. He has an appointment on Tuesday at 11am with Mar Solitario at [facility].
--- NOTE | 2024-11-07 12:10 | PCM.PN.HOSP ---
Reason for Visit Reason for Visit: Diagnoses Alcohol use, unspecified with withdrawal, unspecified (11/05/24) Subjective Subjective Saw patient at bedside this morning. Patient appeared similar this morning to yesterday, was sitting back comfortably in bed and reported good control of withdrawal symptoms. No new concerns today. Objective Data Objective Data Vital Signs: Vital Signs Temp Pulse Resp BP Pulse Ox O2 Del Method O2 Flow Rate 97.8 F 72 18 124/77 H 96 Room Air 2 11/07/24 07:36 11/07/24 07:36 11/07/24 07:36 11/07/24 07:36 11/07/24 07:36 11/07/24 07:37 11/07/24 03:50 Oxygen Flow Rate (L/min) 2 Oxygen Delivery Method Room Air Weight: 96.2 kg Body Mass Index (BMI) 31.4 Intake & Output: Intake and Output for Last 24 Hours 11/05/24 11/06/24 11/07/24 23:59 23:59 23:59 Intake Total 2781.67 / 2781.67 800 / 800 Output Total 1300 / 1300 Balance 2781.67 / 2781.67 -500 / -500 Lab / Micro Data 11/07/24 05:35 11/07/24 05:35 Labs: Laboratory Results - last 24 hr 11/07/24 05:35: WBC 4.9, RBC 3.35 L, Hgb 10.8 L, Hct 32.6 L, MCV 97.3 H, MCH 32.2 H, MCHC 33.1, RDW Std Deviation 53.1 H, RDW Coeff of Debbie 15.0 H, Plt Count 235, MPV 8.7, Sodium 135, Potassium 4.4, Chloride 101, Carbon Dioxide 24.4, Anion Gap 10, BUN 17, Creatinine 1.59 H, Estim Creat Clear Calc 58.35, Est GFR (MDRD) Non-Af 51 L, BUN/Creatinine Ratio 10.8, Glucose 113 H, Calcium 8.6 Physical Exam Const alert, oriented x3 and no apparent distress Constitutional Narrative: Middle-age male, class I obesity, sitting back comfortably in bed, conversing normally, in no acute distress. General Appearance: cooperative and comfortable HEENT normocephalic, head/scalp atraumatic, hearing grossly normal bilaterally, nasal mucous membranes and turbinates normal and moist oral mucous membranes Eyes PERRL, EOMs intact bilaterally and conjunctivae normal Neck full ROM Chest inspection of chest normal Resp normal respiratory effort, normal air movement, no use of accessory muscles and clear to auscultation bilaterally Cardio regular rate, regular rhythm, no murmurs and peripheral pulses 2+ throughout GI normal to inspection, nondistended, normoactive bowel sounds, soft to palpation, non-tender and non-distended Back/Spine normal ROM Extremity normal to inspection, full ROM and no pedal edema Skin no rashes or lesions noted Psych mental status grossly normal Assessment & Plan Assessment/Plan (1) Alcohol withdrawal: (2) Desire for detoxification: PLAN: Plan Patient is a 54-year-old male who presented [facility] ED on 11/05/2024 for alcohol detox. 1. Alcohol abuse with withdrawal and desire for detox ? Case management following. Recent hospitalization here in August for alcohol detox as well. Alcohol level 47 on admit with withdrawal symptoms noted. Treating with phenobarbital taper and other as needed medications per alcohol withdrawal order set with good improvement in symptoms. Appreciate case management assistance on discharge planning. 2. FRANK versus progression to CKD stage IIIa ? Creatinine 1.55 on admit. Baseline appears to be around 1.1-1.2 given creatinine from August. However, despite IV fluid resuscitation here creatinine has remained at 1.5-1.6. Patient has had good urine output. GFR 50-55. Suspect patient may be at a new baseline for him. No need to monitor further BMPs while inpatient, recommend follow-up BMP in 7 to 10 days for further monitoring. Chronic medical conditions: ? Hypertension: Continue home amlodipine. Blood pressure has remained normotensive to borderline low during his hospitalization with lisinopril being held; will plan to hold his lisinopril on discharge. ? Anxiety/depression: Continue home bupropion, escitalopram and cariprazine. ? Hypothyroidism: Continue home Synthroid. DVT prophylaxis: Lovenox CODE STATUS: Full code, verified Expected disposition: Home, 1 to 2 days Total clinical time spent by myself addressing the patient's medical issues, reviewing all the data, and collaborating with patient's care team: 25 minutes. Charges/Coding Visit Charges Inpatient E&M: 80551 Subs Hosp L2
--- NOTE | 2024-11-07 14:56 | NURSING ---
Mr. Cabrera's significant other called earlier for an update per [employer] head -Social Sciences Instructor. Nickie updated at this time.
[2024-11-07 16:24] VITALS: BP 118/83; PULSE 68; RESP 18; TEMP 36.9; O2SAT 96
[2024-11-07 20:34] VITALS: BP 123/82; PULSE 74; RESP 16; TEMP 36.8; O2SAT 94
[2024-11-07] MEDS: MELATONIN 3 MG TABLET 10 MG PO (23:29)
[2024-11-07 23:30] VITALS: BP 149/104; PULSE 75; RESP 16; TEMP 36.6; O2SAT 96
[2024-11-07] MEDS: hydrOXYzine PAM 25 MG Capsule 50 MG PO (23:35)
[2024-11-08 04:35] VITALS: BP 127/71; PULSE 69; RESP 16; TEMP 36.4; O2SAT 95
[2024-11-08] MEDS: Phenobarbital 32.4 MG Tablet 64.8 MG PO ×2 (04:37→09:04)
[2024-11-08] MEDS: Levothyroxine 75 MCG Tablet PO (04:38)
[2024-11-08 08:23] VITALS: BP 106/71; PULSE 66; RESP 16; TEMP 36.5; O2SAT 98
[2024-11-08] MEDS: Escitalopram Oxalate 20 MG Tablet PO (09:04)
[2024-11-08] MEDS: Enoxaparin 40 MG/0.4 ML Syringe SC (09:04)
[2024-11-08] MEDS: CARIPRAZINE HCL 1.5 MG CAPSULE PO (09:04)
[2024-11-08] MEDS: Folic Acid 1 MG Tablet PO (09:04)
[2024-11-08] MEDS: Thiamine Hydrochloride 100 MG Tablet PO (09:04)
[2024-11-08] MEDS: buPROPion (XL) 150 MG TABLET.XL PO (09:04)
[2024-11-08] MEDS: amLODIPine 10 MG Tablet PO (09:04)
--- NOTE | 2024-11-08 11:41 | DCINST_ITS ---
Discharge Instructions Diet Discharge Diet: No restrictions DC O2, CPAP, BIPAP needs Home O2 Discharge instructions: No Dressing / Incision Discharge Activity: Return to Normal Activity Weight Bearing Status: Weight bearing as tolerated Dressing / Incision Call your doctor if you observe: Fever of 101 or Higher, Coldness, Increased Pain, Numbness or Tingling, Change in Color, Inability to urinate, Inability to have a bowel movement, Shortness of breath, Dizziness, Fainting spells, Swelling in the ankles, Chest pain, Prolonged hiccupping, Increased palpitations (irregular heartbeat) and Calf discomfort Follow Up Care When: IN 2 WEEKS Test Results: Test results from this visit will be discussed in further detail at your follow- up appointment, if applicable. Discharge Plan Admission Admit Date/Time: 11/05/24 18:50 Attending Provider: Justin Sandra Primary Care Provider: Iris Potter Consulting Providers: Bev Garcia; Alo Marin Discharge Orders/Prescriptions Prescriptions: New folic acid 1 mg Tablet 1 mg PO DAILY@0800 30 Days Qty: 30 2RF thiamine HCl (vitamin B1) 100 mg Tablet 100 mg PO DAILYCM 30 Days Qty: 30 2RF Continued amlodipine 10 mg tablet 10 mg PO DAILY hydroxyzine HCl 25 mg tablet 25 mg PO TID PRN PRN (Reason: anxiety) escitalopram oxalate 20 mg tablet 20 mg PO DAILY Patient Comments: states pt is taking 30mg bupropion HCl 150 mg tablet extended release 24 hr 150 mg PO DAILY lisinopril 10 mg tablet 10 mg PO DAILY levothyroxine 75 mcg tablet 75 mcg PO DAILY lorazepam 1 mg tablet 1 mg PO BID Vraylar 1.5 mg capsule 1.5 mg PO DAILY Referrals / Follow Up: Iris Potter MD [Primary Care Provider] - Disposition Disposition (needs filled in before D/C Order can be placed): Home, Self Care
--- NOTE | 2024-11-08 12:44 | PCM.DC.SUM ---
Providers Date of Admission: 11/05/24 Date of Discharge: 11/08/24 Primary Care Physician: Iris Potter MD Reason For Visit: ETOH DETOX Diagnosis Discharge Diagnosis (1) Alcohol withdrawal: Status: Acute Code(s): F10.939 - Alcohol use, unspecified with withdrawal, unspecified (2) Desire for detoxification: Status: Resolved Plan: Patient is a 54-year-old male who presented [facility] ED on 11/05/2024 for alcohol detox. 1. Alcohol abuse with withdrawal and desire for detox ? Case management following. Recent hospitalization here in August for alcohol detox as well. Alcohol level 47 on admit with withdrawal symptoms noted. Treating with phenobarbital taper and other as needed medications per alcohol withdrawal order set with good improvement in symptoms. Appreciate case management assistance on. Patient also to go home. Discharge planning. 11/08: Alcohol withdrawal symptoms have resolved. CIWA score 0 2. Gradual progression to CKD stage IIIa ? Creatinine 1.55 on admit. Baseline appears to be around 1.1-1.2 given creatinine from August. However, despite IV fluid resuscitation here creatinine has remained at 1.5-1.6. Patient has had good urine output. GFR 50-55. Suspect patient may be at a new baseline for him. No need to monitor further BMPs while inpatient, recommend follow-up BMP in 7 to 10 days for further monitoring. 11/08:Creatinine 1.59 on 11/07. At baseline. CKD stage III Chronic medical conditions: ? Hypertension: Continue home amlodipine. Blood pressure has remained normotensive to borderline low during his hospitalization with lisinopril being held; will plan to hold his lisinopril on discharge. ? Anxiety/depression: Continue home bupropion, escitalopram and cariprazine. ? Hypothyroidism: Continue home Synthroid. DVT prophylaxis: Lovenox CODE STATUS: Full code, verified Discharge medication reconciliation done. Discharge follow-up instructions completed. Discharge process discussed with the patient and all questions were answered to patient's satisfaction. Follow with PCP in 1 to 2 weeks Total time spent, exact 35 minutes on discharge meds reconciliation, examination, coordination of care with nurses and ancillary staff, review of imaging and blood test and discussion with the patient on follow-up instructions. Medications at Discharge Home Medications amlodipine 10 mg tablet 10 mg PO DAILY bp 08/21/24 bupropion HCl 150 mg 24 hr tablet, extended release 150 mg PO DAILY depression 08/21/24 escitalopram oxalate 20 mg tablet 20 mg PO DAILY mood 08/21/24 hydroxyzine HCl 25 mg tablet 25 mg PO TID PRN PRN anxiety 08/21/24 lisinopril 10 mg tablet 10 mg PO DAILY bp 08/21/24 cariprazine 1.5 mg capsule (Vraylar) 1.5 mg PO DAILY 11/05/24 levothyroxine 75 mcg tablet 75 mcg PO DAILY 11/05/24 lorazepam 1 mg tablet 1 mg PO BID 11/05/24 folic acid 1 mg tablet 1 mg PO DAILY@0800 30 days #30 tabs 11/08/24 thiamine HCl (vitamin B1) 100 mg tablet 100 mg PO DAILYCM 30 days #30 tabs 11/08/24 Physical Exam Narrative Seen and examined patient is doing well. Alcohol withdrawal symptoms have resolved. Patient is stated that he was drinking 1 bottle of whiskey for last 3 weeks. He relapsed 3 weeks ago and before that he was sober for 2 months. Physical exam General: Alert, Oriented x3, Cooperative HEENT: Atraumatic, PERRLA, EOMI, Normocephalic. Oral: No Gingival or Mucosal Lesions/ Ulcerations Neck: Supple, No JVD, Negative Carotid Bruits Chest wall/Lungs: Air entry diminished in bilateral lung bases. No crepitation/rhonchi Cardiovascular: Regular rate and rhythm, Normal S1,S2, No M/G/R Abdomen: Bowel Sounds Present, Soft, Non Tender, Non-Distended : No dysuria. No renal angle tenderness. No suprapubic tenderness. Extremities: No edema, Capillary Refill Less than 3 Seconds Skin: No rashes, No breakdown Musculoskeletal: No Tenderness to Palpation of Joints or Extremities Neurological: Cranial nerves II-XII grossly intact, DTR 2+/4. No acute focal neurological deficit. Psych/Mental Status: Normal Affect, Appropriate. Weight / BMI Weight Weight: 212 lb 1.355 oz Body Mass Index (BMI) 31.4 ABG / Lab / Microbiology Data 11/07/24 05:35 11/07/24 05:35 D/C Instructions Discharge Diet: No restrictions Weight Bearing Status: Weight bearing as tolerated Call your doctor if you observe: Fever of 101 or Higher, Coldness, Increased Pain, Numbness or Tingling, Change in Color, Inability to urinate, Inability to have a bowel movement, Shortness of breath, Dizziness, Fainting spells, Swelling in the ankles, Chest pain, Prolonged hiccupping, Increased palpitations (irregular heartbeat) and Calf discomfort DC O2, CPAP, BIPAP Needs Home O2 Discharge instructions: No When: IN 2 WEEKS Meaningful Use Info Meaningful Use Meaningful Use Diagnoses (Choose all that apply): None applicable Ischemic Stroke Statin Dosing Therapy Reference: STATIN DOSE THERAPY REFERENCE: * Patients > 75 years receive moderate or high dose statin therapy. * Patients 75 years or YOUNGER should receive HIGH intensity statin dose unless contraindicated. You will be required to document reason for non-treatment if statin daily dose does not meet guidelines. HIGH DOSE STATIN THERAPY DAILY Atorvastatin > than or = to 40 mg Rosuvastatin > than or = to 20 mg Amlodipine + Atorvastatin > than or = to 2.5/40 mg Ezetimibe + Simvastatin 10/80 mg Simvastatin 80mg Discharge Plan Admission Admit Date/Time: 11/05/24 18:50 Attending Provider: Justin Sandra Primary Care Provider: Iris Potter Consulting Providers: Bev Garcia; Alo Marin Discharge Orders/Prescriptions Prescriptions: New folic acid 1 mg Tablet 1 mg PO DAILY@0800 30 Days Qty: 30 2RF thiamine HCl (vitamin B1) 100 mg Tablet 100 mg PO DAILYCM 30 Days Qty: 30 2RF Continued amlodipine 10 mg tablet 10 mg PO DAILY hydroxyzine HCl 25 mg tablet 25 mg PO TID PRN PRN (Reason: anxiety) escitalopram oxalate 20 mg tablet 20 mg PO DAILY Patient Comments: states pt is taking 30mg bupropion HCl 150 mg tablet extended release 24 hr 150 mg PO DAILY lisinopril 10 mg tablet 10 mg PO DAILY levothyroxine 75 mcg tablet 75 mcg PO DAILY lorazepam 1 mg tablet 1 mg PO BID Vraylar 1.5 mg capsule 1.5 mg PO DAILY Referrals / Follow Up: Iris Potter MD [Primary Care Provider] - Disposition Disposition (needs filled in before D/C Order can be placed): Home, Self Care Charges/Coding Visit Charges Inpatient E&M: 37137 Disch Hosp >30min
== END 2024-11-08 13:09 | disposition home or self-care (01) | DRG 775 ==
LOC: ED 18:43 → MS3 11-06 07:05
PROVIDERS: Hospitalist; Admitting Provider Internal Medicine; Emergency Provider Emergency Medicine; PCP Family Medicine; Visit Provider Internal Medicine
DX: F10.139 Alcohol abuse with withdrawal, unspecified (principal); F31.9 Bipolar disorder, unspecified; J44.9 Chronic obstructive pulmonary disease, unspecified; N18.31 Chronic kidney disease, stage 3a; E03.9 Hypothyroidism, unspecified; I12.9 Hypertensive chronic kidney disease with stage 1 through stage 4 chronic kidney disease, or unspecified chronic kidney disease; E66.811 Obesity, class 1; E78.00 Pure hypercholesterolemia, unspecified; F41.9 Anxiety disorder, unspecified; F17.200 Nicotine dependence, unspecified, uncomplicated; Z68.31 Body mass index [BMI] 31.0-31.9, adult; Y90.2 Blood alcohol level of 40-59 mg/100 ml; Z79.890 Hormone replacement therapy; Z79.899 Other long term (current) drug therapy
CPT/HCPCS: 36415; 80048; 80053; 80307; 82077; 83690; 85025; 85027; 96360; 96361; 96372; 99221; 99284; A4216; G0378

== ENCOUNTER 2025-02-21 09:34 | Inpatient (IN) | payer SELFPAY ==
[2025-02-21] VITALS (7 sets, daily range): BP systolic 106–149; BP diastolic 78–99; PULSE 64–101; RESP 14–18; TEMP 36.6–37.5; O2SAT 94–99; BMI 31.0; BMI 32.1
--- NOTE | 2025-02-21 09:42 | EDS_ITS ---
HPI History of Present Illness Chief Complaint: Substance Abuse Informant: patient Onset/Context/Timing Onset: Today Timing: Continuous Worsened by: Nothing Relieved by: Nothing Associated Symptoms Associated Symptoms: Positive for diarrhea*; Negative for vomiting*, fever*, rash*, seizure, tremor, palpatations, change in mental status, suicidal ideation or homicidal ideation Narrative Narrative: Patient presents requesting detox from alcohol. Patient states he drinks 1/5 of bourbon per day. Patient states his last drink was 8 AM today. Patient states he has been drinking for the past month. Patient states he went through detox approximately 3 months ago and stayed sober for approximately 2 months. Patient admits to some diarrhea. Patient denies any nausea or vomiting. Patient denies any seizures or tremors. Patient denies any suicidal or homicidal ideations. [facility] Medical History Obesity (BMI 30.0-34.9) Bipolar disorder Alcohol dependence Tobacco dependence Alcohol dependence Essential (primary) hypertension Umbilical hernia Restless legs High cholesterol Substance abuse Alcohol abuse Bipolar disorder Anxiety Depression Hypothyroidism Diabetes Rheumatoid arthritis Kidney stones Smoker Sleep apnea COPD (chronic obstructive pulmonary disease) Irregular heart beat Chest pain Hypertension Home Medications ?Medication ?Instructions ?Recorded ?Last Taken ?Type amlodipine 10 mg tablet 10 mg PO DAILY bp 08/21/24 0 11/05/24 History bupropion HCl 150 mg 24 hr tablet, 150 mg PO DAILY dep ression 08/21/24 11/05/24 History extended release escitalopram oxalate 20 mg tablet 20 mg PO DAILY mood 08/21/24 11/05/24 History hydroxyzine HCl 25 mg tablet 25 mg PO TID PRN PRN anxi ety 08/21/24 11/05/24 History lisinopril 10 mg tablet 10 mg PO DAILY bp 08/21/24 0 11/05/24 History cariprazine 1.5 mg capsule 1.5 mg PO DAILY 11/05/24 History (Vraylar) levothyroxine 75 mcg tablet 75 mcg PO DAILY 11/05/24 0 11/05/24 History lorazepam 1 mg tablet 1 mg PO BID 11/05/24 5 History folic acid 1 mg tablet 1 mg PO DAILY@0800 30 days # 30 tabs 11/08/24 Unknown Rx thiamine HCl (vitamin B1) 100 mg 100 mg PO DAILYCM 30 days #30 tabs 11/08/24 Unknown Rx tablet Allergy/AdvReac Type Severity Reaction Status Date / Time No Known Allergies Allergy Verified 02/21/25 09:34 Surgical History no surgical history no surgical history Social History Smoking Status: Heavy Smoker (>10/day) alcohol intake: current alcohol intake frequency: 3 or more drinks per day Alcohol type: hard liquor ROS ROS ED Constitutional Constitutional ED: Denies chills or fever(s) Eyes Eyes: Denies blurry vision or change in vision ENT ENT ED: Reports rhinorrhea and sore throat Cardiovascular Cardiovascular: Denies chest pain or palpitations Respiratory/Chest Respiratory/Chest: Denies cough or dyspnea Gastrointestinal Gastrointestinal: Reports diarrhea; Denies nausea or vomiting Genitourinary Genitourinary ED: Denies dysuria or hematuria Musculoskeletal Musculoskeletal: Denies back pain or neck pain Integumentary Denies abscess or rash Neurologic Neurologic: Denies headache(s) or weakness Psychiatric Psychiatric: Denies suicidal ideation or suicidal thoughts Allergic/Immunologic Allergic/Immunologic ED: Denies mouth swelling or urticaria EXAM Physical Exam Const Vital Signs: 02/21/25 09:35 02/21/25 09:36 02/21/25 10:34 Temperature 98.7 F 98.7 F Temperature Source Oral Oral Pulse Rate 101 H 98 94 Respiratory Rate 18 18 18 Blood Pressure 147/90 H 147/90 H Blood Pressure Mean 109 109 Blood Pressure Source Monitor Blood Pressure Position Supine Blood Pressure Location Left Arm Pulse Ox 98 99 98 Oxygen Delivery Method Room Air Room Air Room Air 02/21/25 11:00 Temperature 98.6 F Temperature Source Oral Pulse Rate 64 Respiratory Rate 18 Blood Pressure 149/78 H Blood Pressure Mean 101 Blood Pressure Source Blood Pressure Position Blood Pressure Location Pulse Ox 98 Oxygen Delivery Method Room Air Positive well nourished and well developed General Appearance ED: well developed and NAD HEENT Reports moist mucous membranes Neck supple and no JVD Resp normal respiratory effort and clear to auscultation bilaterally Cardio regular rate and regular rhythm GI soft to palpation, non-tender and non-distended Neuro oriented x3, CN's II-XII intact bilaterally and no sensory deficits noted Wallace Coma Scale: document GCS findings Spontaneous Obeys Commands Oriented 15 Sensorium / Orientation: alert Speech: speech normal Motor Exam: strength 5/5 throughout Psych mental status grossly normal and thought process normal MDM MDM MDM Narrative Medical decision making narrative: Medical screening labs will be obtained. CBC will be obtained to assess for leukocytosis and anemia. Comprehensive metabolic profile will be obtained to assess for hepatic function, renal function, and electrolyte abnormality. Serum alcohol level will be obtained to assess for alcohol intoxication. Urine drug screen will be obtained to assess for substance abuse. History & Record Review Additional record(s) reviewed:: Prior inpatient record, Prior ED visit and Prior labs Lab Data Attestation: I reviewed the patient's lab results. Lab results narrative: CBC was reviewed and was within normal limits. Comprehensive metabolic profile was reviewed. Creatinine was slightly elevated at 1.52. This was unchanged compared to previous results. The remainder was within normal limits. Serum alcohol level was reviewed and was less than 10.1. Urine drug screen was reviewed and was positive for benzodiazepines. Labs: Laboratory Results - last 24 hr 02/21/25 02/21/25 10:09 10:36 WBC 8.4 RBC 4.44 L Hgb 13.6 Hct 41.2 MCV 92.8 MCH 30.6 MCHC 33.0 RDW Std Deviation 50.2 H RDW Coeff of Debbie 14.6 Plt Count 339 MPV 8.9 Immature Gran % (Auto) 0.900 Neut % (Auto) 68.1 Lymph % (Auto) 20.8 [place] % (Auto) 8.3 Eos % (Auto) 1.4 Baso % (Auto) 0.5 Absolute Neuts (auto) 5.7 Absolute Lymphs (auto) 1.75 Nucleated RBC % 0 Sodium 136 Potassium 4.4 Chloride 99 Carbon Dioxide 24.5 Anion Gap 12 BUN 17 Creatinine 1.52 H Estim Creat Clear Calc 61.80 Est GFR (MDRD) Non-Af 53 L BUN/Creatinine Ratio 11.4 Glucose 111 H Calcium 9.5 Total Bilirubin 0.22 AST 19 ALT 7 Alkaline Phosphatase 109 Total Protein 8.1 Albumin 4.4 Globulin 3.7 Albumin/Globulin Ratio 1.2 Urine Opiates Screen NEGATIVE U Buprenorphine Qual NEGATIVE Ur Oxycodone Screen NEGATIVE Urine Methadone Screen NEGATIVE Urine Fentanyl Screen NEGATIVE Ur Barbiturates Screen NEGATIVE Ur Phencyclidine Scrn NEGATIVE Ur Amphetamines Screen NEGATIVE U Benzodiazepines Scrn PRESUMPTIVE POSITIVE Urine Cocaine Screen NEGATIVE U Cannabinoids Screen NEGATIVE Ethyl Alcohol < 10.1 Management Discussion w/another healthcare provider: Hospitalist (Dr. Garcia) Treatment and Re-Evaluation Narrative: Patient was given a nicotine patch. Patient is agreeable with admission. Case was discussed with the hospitalist. She will admit the patient to her service. Patient understood and was agreeable with the plan. All questions were answered. Discharge Plan Dx/Rx/DC Orders Clinical Impression: Alcohol withdrawal, Tobacco dependence, Essential (primary) hypertension, Desire for detoxification Disposition Disposition: Acute Care Hospital [facility]
[2025-02-21 10:18] LABS: Hematocrit 41.2 % (40-54); Hemoglobin 13.6 g/dL (13.0-16.5); Immature Granulocytes Count 0.080 X10^3/uL (0.0-0.0); Mean Corp Hgb Conc 33.0 g/dL (32-36); Mean Corpuscular Volume 92.8 fL (80-94); Mean Platelet Vol. 8.9 fl (6.2-12.0); NRBC Flagged by Analyzer 0 % (0-5); Platelet Count 339 K/mm3 (150-450); RBC Distribution Width CV 14.6 % (11.6-14.6); RBC Distribution Width SD 50.2 fl (35.1-43.9); Red Blood Count 4.44 M/mm3 (4.6-6.2); White Blood Count 8.4 K/mm3 (4.4-11.0)
[2025-02-21] MEDS: Nicotine (PBKC) 21 MG Patch TD (10:20)
[2025-02-21 10:51] LABS: AST(SGOT) 19 U/L (<=37); Alanine Aminotransfer ALT/SGPT 7 U/L (<=46); Albumin, Serum 4.4 g/dL (3.5-5.0); Alkaline Phosphatase 109 U/L (40-129); Anion Gap 12 (5-15); BUN 17 mg/dL (4-19); BUN/Creat Ratio 11.4 RATIO (10-20); Calcium,Total 9.5 mg/dL (7.6-11.0); Carbon Dioxide 24.5 mmol/L (21.0-32.0); Chloride 99 mmol/L (98-108); Estimated Creatinine Clearance 61.80 ml/min (50-250); Globulin 3.7 g/dL (2.2-4.2); Glucose 111 mg/dL (70-99); Potassium 4.4 mmol/L (3.3-5.1)
[2025-02-21 10:53] LABS: Alcohol, Blood (Medical)-Serum < 10.1 mg/dL (<=10.0)
[2025-02-21 11:32] LABS: Barbiturate Urine NEGATIVE (< 200 ng/mL); Benzodiazepine Urine PRESUMPTIVE POSITIVE (< 200 ng/mL); PCP Urine NEGATIVE (< 25 ng/mL); THC Urine NEGATIVE (< 50 ng/mL)
--- NOTE | 2025-02-21 12:11 | CM.ED ---
Social Work Patient requesting detox from alcohol. Treatment navigator notified of admission to [facility]. Makayla Freeman, AUTOMATION MANAGER, ASSOCIATE PROFESSOR OF ART HISTORY
--- NOTE | 2025-02-21 12:26 | PCM.HP.STD ---
HPI - General General Date of Admission: 02/21/25 Date of Service: 02/21/25 Chief Complaint: ETOH detox HPI Narrative CARROLL BUTTS, is a 54-year-old male history of alcohol and tobacco dependence, hypertension, hypothyroidism, depression and anxiety presented to [facility] ED 02/21/2025 requesting detox from alcohol. Last went through our detox around 3 months ago but last month started drinking again due to stress from his mother's decline due to her pulmonary fibrosis. In the ED patient vitally stable and kidney function at baseline so hospitalist contacted for admission. Patient reports he has been drinking about 1/5 a day of bourbon again with his last drink around 8:00 in which he had double. Discussed that his alcohol was negative but he said that he did drink this morning. Starting to feel shaky and a little bit of abdominal cramping but no other new or acute complaints denies any illicit substance use, reports he takes Ativan at night for bedtime but this is prescribed. Also does smoke cigarettes [facility] Medical History Obesity (BMI 30.0-34.9) Bipolar disorder Alcohol dependence Tobacco dependence Alcohol dependence Essential (primary) hypertension Umbilical hernia Restless legs High cholesterol Substance abuse Alcohol abuse Bipolar disorder Anxiety Depression Hypothyroidism Diabetes Rheumatoid arthritis Kidney stones Smoker Sleep apnea COPD (chronic obstructive pulmonary disease) Irregular heart beat Chest pain Hypertension Home Medications ?Medication ?Instructions ?Recorded ?Last Taken ?Type amlodipine 10 mg tablet 10 mg PO DAILY bp 08/21/24 11/05/24 History bupropion HCl 150 mg 24 hr tablet, 150 mg PO DAILY depression 08/21/24 11/05/24 History extended release escitalopram oxalate 20 mg tablet 20 mg PO DAILY mood 08/21/24 11/05/24 History hydroxyzine HCl 25 mg tablet 25 mg PO TID PRN PRN anxiety 08/21/24 11/05/24 History lisinopril 10 mg tablet 10 mg PO DAILY bp 08/21/24 11/05/24 History cariprazine 1.5 mg capsule 1.5 mg PO DAILY 11/05/24 11/05/24 History (Nestorlar) levothyroxine 75 mcg tablet 75 mcg PO DAILY 11/05/24 11/05/24 History lorazepam 1 mg tablet 1 mg PO BID 11/05/24 11/05/24 History folic acid 1 mg tablet 1 mg PO DAILY@0800 30 days #30 tabs 11/08/24 Unknown Rx thiamine HCl (vitamin B1) 100 mg 100 mg PO DAILYCM 30 days #30 tabs 11/08/24 Unknown Rx tablet Allergy/AdvReac Type Severity Reaction Status Date / Time No Known Allergies Allergy Verified 02/21/25 09:34 Surgical History no surgical history Social History Smoking Status: Heavy Smoker (>10/day) alcohol intake: current alcohol intake frequency: 3 or more drinks per day Alcohol type: hard liquor ROS ROS Narrative General: Denies fever/chills HENT: Denies headache, denies stuffy nose, denies sore throat EYES: Denies changes in vision Resp: Denies cough, denies shortness of breath Cardiac: Denies chest pain GI: Denies abdominal pain but starting to have some cramping, denies changes in bowel, denies nausea/vomiting : Denies changes in urination Extremity: Denies swelling MSK: Denies weakness Neuro: Denies any numbness/tingling, starting to feel little bit shaky Heme: Denies any bleeding or bruising Skin: Denies rashes Psychiatric: No complaints voiced Vital Signs Vital Signs Vital Signs: 02/21/25 09:35 02/21/25 09:36 02/21/25 10:34 Temperature 98.7 F 98.7 F Temperature Source Oral Oral Pulse Rate 101 H 98 94 Respiratory Rate 18 18 18 Blood Pressure 147/90 H 147/90 H Blood Pressure Mean 109 109 Blood Pressure Source Monitor Blood Pressure Position Supine Blood Pressure Location Left Arm Pulse Ox 98 99 98 Oxygen Delivery Method Room Air Room Air Room Air 02/21/25 11:00 02/21/25 12:00 Temperature 98.6 F 97.8 F Temperature Source Oral Pulse Rate 64 89 Respiratory Rate 18 16 Blood Pressure 149/78 H 139/78 H Blood Pressure Mean 101 98 Blood Pressure Source Blood Pressure Position Blood Pressure Location Pulse Ox 98 99 Oxygen Delivery Method Room Air Weight Weight: 95.254 kg Body Mass Index (BMI) 31.0 Physical Exam Narrative General: Alert, oriented, no apparent distress HEENT: Atraumatic, normocephalic Eyes: Anicteric, normal conjunctiva, extraocular movements grossly intact Neck: Supple Respiratory: Clear to auscultation bilaterally, normal respiratory effort Cardiovascular: Regular rate and rhythm GI: Protuberant but nontender Extremities: No edema Musculoskeletal: Moving all extremities Neuro: No overt focal neurological deficits Skin: No rashes appreciated Psych: Cooperative Results Lab / Micro Data 02/21/25 10:09 02/21/25 10:09 Labs: Laboratory Results - last 24 hr 02/21/25 10:09: WBC 8.4, RBC 4.44 L, Hgb 13.6, Hct 41.2, MCV 92.8, MCH 30.6, MCHC 33.0, RDW Std Deviation 50.2 H, RDW Coeff of Debbie 14.6, Plt Count 339, MPV 8.9, Immature Gran % (Auto) 0.900, Neut % (Auto) 68.1, Lymph % (Auto) 20.8, [place] % (Auto) 8.3, Eos % (Auto) 1.4, Baso % (Auto) 0.5, Absolute Neuts (auto) 5.7, Absolute Lymphs (auto) 1.75, Nucleated RBC % 0, Sodium 136, Potassium 4.4, Chloride 99, Carbon Dioxide 24.5, Anion Gap 12, BUN 17, Creatinine 1.52 H, Estim Creat Clear Calc 61.80, Est GFR (MDRD) Non-Af 53 L, BUN/Creatinine Ratio 11.4, Glucose 111 H, Calcium 9.5, Total Bilirubin 0.22, AST 19, ALT 7, Alkaline Phosphatase 109, Total Protein 8.1, Albumin 4.4, Globulin 3.7, Albumin/Globulin Ratio 1.2, Ethyl Alcohol < 10.1 02/21/25 10:36: Urine Opiates Screen NEGATIVE, U Buprenorphine Qual NEGATIVE, Ur Oxycodone Screen NEGATIVE, Urine Methadone Screen NEGATIVE, Urine Fentanyl Screen NEGATIVE, Ur Barbiturates Screen NEGATIVE, Ur Phencyclidine Scrn NEGATIVE, Ur Amphetamines Screen NEGATIVE, U Benzodiazepines Scrn PRESUMPTIVE POSITIVE, Urine Cocaine Screen NEGATIVE, U Cannabinoids Screen NEGATIVE Assessment & Plan Assessment/Plan (1) Alcohol withdrawal: (2) Desire for detoxification: PLAN: Plan #Alcohol use disorder - We will begin CIWA every 4 for 24 hours, then every 6 for 24 hours, then every 12 until discharge -Will begin phenobarbital taper -Gabapentin 300 mg every 8 as needed -Will start Bentyl and hydroxyzine as needed as well as loperamide as needed -Trazodone 100 mg p.o. nightly as needed sleep -Begin thiamine and folic acid supplementation -Zofran as needed for nausea -Case management consult to assist with discharge planning -EtOH negative -UDS positive for benzodiazepines #Hypertension - Will hold home antihypertensives to allow room for supportive medications for detox, add back as tolerated #Hypothyroidism -Continue Synthroid #Depression/anxiety -Continue home Wellbutrin and Lexapro - Presently holding the lorazepam given patient on phenobarb taper - Holding Vraylar as it is nonformulary and has possible interaction with phenobarbital however if patient brings in from home or strong desire to continue while inpatient can consider alternate agents #Tobacco use -Advise cessation -Nicotine replacement available if desired # CKD stage III a -Appears to be at baseline -Avoid nephrotoxic agents #DVT ppx: Low risk, ambulatory Bev Garcia MD Charges/Coding Visit Charges Inpatient E&M: 17858 Init Hosp L2
[2025-02-21] MEDS: 0.9% Saline Lock 10 ML Syringe IV (14:04)
--- NOTE | 2025-02-21 18:28 | NURSING ---
spoke w/pts sig other, she will bring pts vaylar in tomorrow when she comes in town
[2025-02-21] MEDS: MELATONIN 10 MG TABLET PO (23:35)
[2025-02-22] VITALS (7 sets, daily range): BP systolic 117–135; BP diastolic 77–94; PULSE 79–80; RESP 16; TEMP 36.6–37.9; O2SAT 93–96
[2025-02-22] MEDS: Thiamine Hydrochloride 100 MG Tablet PO (10:01)
[2025-02-22] MEDS: Nicotine (PBKC) 21 MG Patch TD (10:02)
[2025-02-22] MEDS: CARIPRAZINE HCL 1.5 MG CAPSULE PO (11:07)
--- NOTE | 2025-02-22 11:58 | ADDICTION ---
This director underwriter sales met with PT to conduct ASAM, MSE, AUDIT assessments and to plan for d/c. PT A+Ox4 and participated actively. All assessments completed. PT plans to f/u with [facility] for follow-up outpatient treatment services. TW spoke with his clinician and correctional officer captain prior to his admission for coordination of care. Pt was screened and assessed for the Vivitrol shot. He meets criteria and would like it administered before discharge. He will have follow up injections at [facility]. Pt reports he does not have a need for transportation post discharge.
--- NOTE | 2025-02-22 13:08 | CASEMGMT ---
Social Work- [facility] met with pt to complete HCPA. Pt is over-income for ENA. Pt reports receiving $2400/month SSD. Pt has PCP and states no other needs at this time. FRANK Paulino
--- NOTE | 2025-02-22 15:51 | NURSING ---
Patient has temp of 99.1 and then 100.2 and also reports a cough with yellow/green sputum. States cough is chronic due to smoking. Dr. Garcia made aware and order for labs, covid swab and resp panel, sputum culture and CXR. Patient refused CXR since he feels he is not sick but agreed to other tests. Explained purpose of checking the CXR and continued to state he didn't want it.
[2025-02-22 15:53] LABS: Hematocrit 34.4 % (40-54); Hemoglobin 11.3 g/dL (13.0-16.5); Immature Granulocytes Count 0.030 X10^3/uL (0.0-0.0); Mean Corp Hgb Conc 32.8 g/dL (32-36); Mean Corpuscular Volume 93.5 fL (80-94); Mean Platelet Vol. 9.1 fl (6.2-12.0); NRBC Flagged by Analyzer 0 % (0-5); Platelet Count 270 K/mm3 (150-450); RBC Distribution Width CV 14.9 % (11.6-14.6); RBC Distribution Width SD 51.0 fl (35.1-43.9); Red Blood Count 3.68 M/mm3 (4.6-6.2); White Blood Count 6.0 K/mm3 (4.4-11.0)
[2025-02-22 16:12] LABS: Anion Gap 10 (5-15); BUN 19 mg/dL (4-19); BUN/Creat Ratio 11.6 RATIO (10-20); Calcium,Total 8.4 mg/dL (7.6-11.0); Carbon Dioxide 24.3 mmol/L (21.0-32.0); Chloride 100 mmol/L (98-108); Estimated Creatinine Clearance 59.31 ml/min (50-250); Glucose 133 mg/dL (70-99); Potassium 4.1 mmol/L (3.3-5.1)
--- NOTE | 2025-02-22 16:35 | PN.HOSP_ITS ---
Reason for Visit Chief Complaint: ETOH detox Subjective Subjective Patient voiced no complaints to me whatsoever, reports he is little bit tired but feeling better. Objective Data Objective Data Vital Signs: Vital Signs Temp Pulse Resp BP Pulse Ox O2 Del Method 98.3 F 80 16 135/86 H 95 Room Air 02/22/25 15:20 02/22/25 13:23 02/22/25 13:23 02/22/25 13:23 02/22/25 13:23 02/22/25 15:30 Oxygen Delivery Method Room Air Weight: 98.571 kg Body Mass Index (BMI) 32.1 Intake & Output: Intake and Output for Last 24 Hours 02/20/25 02/21/25 02/22/25 23:59 23:59 23:59 Intake Total 200 / 200 200 / 200 Balance 200 / 200 200 / 200 Lab / Micro Data 02/22/25 15:32 02/22/25 15:32 Labs: Laboratory Results - last 24 hr 02/22/25 15:32: WBC 6.0, RBC 3.68 L, Hgb 11.3 L, Hct 34.4 L, MCV 93.5, MCH 30.7, MCHC 32.8, RDW Std Deviation 51.0 H, RDW Coeff of Debbie 14.9 H, Plt Count 270, MPV 9.1, Immature Gran % (Auto) 0.500, Neut % (Auto) 65.0, Lymph % (Auto) 24.9, [place] % (Auto) 8.0, Eos % (Auto) 1.3, Baso % (Auto) 0.3, Absolute Neuts (auto) 3.9, Absolute Lymphs (auto) 1.49, Nucleated RBC % 0, Sodium 134, Potassium 4.1, Chloride 100, Carbon Dioxide 24.3, Anion Gap 10, BUN 19, Creatinine 1.61 H, Estim Creat Clear Calc 59.31, Est GFR (MDRD) Non-Af 50 L, BUN/Creatinine Ratio 11.6, Glucose 133 H, Calcium 8.4 Micro: Microbiology 02/22/25 15:20 Mucosa - Nasopharyngeal Coronavirus COVID-19 PCR - Final Physical Exam Narrative General: Alert, oriented, no apparent distress HEENT: Atraumatic, normocephalic Eyes: extraocular movements grossly intact Neck: Supple Respiratory: normal respiratory effort Cardiovascular: no edema appreciated GI: nondistended Extremities: Moving all extremities Neuro: No overt focal neurological deficits Psych: Cooperative Assessment & Plan Assessment/Plan (1) Alcohol withdrawal: (2) Desire for detoxification: PLAN: Plan #Alcohol use disorder - We will begin CIWA every 4 for 24 hours, then every 6 for 24 hours, then every 12 until discharge -Will begin phenobarbital taper -Gabapentin 300 mg every 8 as needed -Will start Bentyl and hydroxyzine as needed as well as loperamide as needed -Trazodone 100 mg p.o. nightly as needed sleep -Begin thiamine and folic acid supplementation -Zofran as needed for nausea -Case management consult to assist with discharge planning -EtOH negative -UDS positive for benzodiazepines -02/22: Tolerating taper well, continue current management, would like Vivitrol prior to DC #Hypertension - Will hold home antihypertensives to allow room for supportive medications for detox, add back as tolerated -02/22: BP as low as 117/77, continue to hold #Depression/anxiety -Continue home Wellbutrin and Lexapro - Presently holding the lorazepam given patient on phenobarb taper - Holding Vraylar as it is nonformulary and has possible interaction with phenobarbital however if patient brings in from home or strong desire to continue while inpatient can consider alternate agents -02/22: Home Vraylar carotid stenosis continue # Cough -02/22: Patient noted to have a temp of 100.2, not technically febrile but slightly higher than usual, he then endorsed a cough with green sputum. Chest x-ray ordered with labs and viral swabs, when patient went down for PA and lateral views he refused x-ray and said he had no cough or symptoms. When he got back up to the room temp was 98.3 and he reported the cough was chronic. He was agreeable to labs and viral swabs. No elevated white count no left shift, viral swabs pending. Can likely monitor but given lack of acute complaints with no white count and no change in his chronic cough do not think he needs empirically covered with antibiotics, no other infectious signs or symptoms either. If patient spikes temperature over 100.4 or develops any localizing complaints can consider cultures and other investigations/revisit chest x-ray Chronic medical problems and/or problems not being actively addressed during today's encounter: #Tobacco use -Advise cessation -Nicotine replacement available if desired # CKD stage III a -Appears to be at baseline -Avoid nephrotoxic agents #Hypothyroidism -Continue Synthroid #DVT ppx: Low risk, ambulatory Bev Garcia MD Charges/Coding Visit Charges Inpatient E&M: 19218 Subs Hosp L2
[2025-02-22] MEDS: MELATONIN 10 MG TABLET PO (21:49)
[2025-02-23 02:16] VITALS: BP 104/75; PULSE 66; RESP 16; TEMP 36.1; O2SAT 94
[2025-02-23 07:53] VITALS: BP 129/79; PULSE 77; RESP 14; TEMP 36.7; O2SAT 96
[2025-02-23] MEDS: Thiamine Hydrochloride 100 MG Tablet PO (07:54)
[2025-02-23] MEDS: CARIPRAZINE HCL 1.5 MG CAPSULE PO (09:29)
[2025-02-23] MEDS: Nicotine (PBKC) 21 MG Patch TD (09:29)
--- NOTE | 2025-02-23 09:34 | PN.HOSP_ITS ---
Subjective Subjective CIWA score of 0 Objective Data Objective Data Vital Signs: Vital Signs Temp Pulse Resp BP Pulse Ox O2 Del Method 98.1 F 77 14 129/79 H 96 Room Air 02/23/25 07:53 02/23/25 07:53 02/23/25 07:53 02/23/25 07:53 02/23/25 07:53 02/23/25 07:53 Oxygen Delivery Method Room Air Weight: 217 lb 5 oz Body Mass Index (BMI) 32.1 Intake & Output: Intake and Output for Last 24 Hours 02/22/25 02/23/25 02/24/25 03:59 03:59 03:59 Intake Total 200 / 200 1000 / 1000 Balance 200 / 200 1000 / 1000 Lab / Micro Data 02/22/25 15:32 02/22/25 15:32 Labs: Laboratory Results - last 24 hr 02/22/25 15:32: WBC 6.0, RBC 3.68 L, Hgb 11.3 L, Hct 34.4 L, MCV 93.5, MCH 30.7, MCHC 32.8, RDW Std Deviation 51.0 H, RDW Coeff of Debbie 14.9 H, Plt Count 270, MPV 9.1, Immature Gran % (Auto) 0.500, Neut % (Auto) 65.0, Lymph % (Auto) 24.9, [place] % (Auto) 8.0, Eos % (Auto) 1.3, Baso % (Auto) 0.3, Absolute Neuts (auto) 3.9, Absolute Lymphs (auto) 1.49, Nucleated RBC % 0, Sodium 134, Potassium 4.1, Chloride 100, Carbon Dioxide 24.3, Anion Gap 10, BUN 19, Creatinine 1.61 H, Estim Creat Clear Calc 59.31, Est GFR (MDRD) Non-Af 50 L, BUN/Creatinine Ratio 11.6, Glucose 133 H, Calcium 8.4 Micro: Microbiology 02/22/25 15:20 Mucosa - Nasopharyngeal Respiratory Panel (PCR) - Final 02/22/25 15:20 Mucosa - Nasopharyngeal Coronavirus COVID-19 PCR - Final Physical Exam Narrative General: Alert, Oriented x3, Cooperative, No apparent distress HEENT: Atraumatic, PERRLA, EOMI, Normocephalic Oral: Moist Mucosa Neck: Supple, No JVD Lungs: Clear to auscultation, Normal air movement, No rhonchi, No wheeze, No rales Cardiovascular: Regular rate, Regular Rhythm, Normal S1, Normal S2, No murmurs Abdomen: Soft, Non Tender, Non-Distended, No Hepato-splenomegaly Extremities: No edema, Capillary Refill Less than 3 Seconds Skin: No rashes, No breakdown Musculoskeletal: No Tenderness to Palpation of Joints or Extremities Neurological: No focal neurological deficits, moves all extremities, sensation intact Psych/Mental Status: Normal Affect, Appropriate Assessment & Plan Assessment/Plan (1) Alcohol withdrawal: (2) Desire for detoxification: PLAN: Plan 1. Alcohol withdrawal/anxiety/depression/tobacco abuse ? Continue with the alcohol withdrawal protocol ? Would like Vivitrol prior to discharge ? Plan for discharge to home ? Will meet with 180 for discharge planning ? Discussed tobacco cessation ? Can resume his home medications 2. Essential HTN/CKD 3 ? Blood pressure stable ? Can hold his lisinopril for now and can restart on discharge ? Renal function appears to be at baseline 3. Hypothyroidism ? Stable ? Continue with Synthroid DVT: Ambulation Charges/Coding Visit Charges Inpatient E&M: 02792 Subs Hosp L2
[2025-02-23 15:00] VITALS: BP 126/92; PULSE 74; RESP 15; TEMP 36.7; O2SAT 92
--- NOTE | 2025-02-23 16:50 | ADDICTION ---
This worker attempted to meet with PT twice today, but he did not respond to rousing.
--- NOTE | 2025-02-23 17:54 | ADDICTION ---
This worker met with PT. PT reports he is doing well and intends to follow up with counseling services with [facility]. No needs/concerns noted.
[2025-02-23] MEDS: MELATONIN 10 MG TABLET PO (21:29)
[2025-02-23 21:33] VITALS: BP 127/90; PULSE 67; RESP 16; TEMP 36.9; O2SAT 99
[2025-02-24 04:28] VITALS: BP 111/71; PULSE 65; RESP 16; TEMP 36.3; O2SAT 96
--- NOTE | 2025-02-24 09:04 | DCINST_ITS ---
Discharge Instructions DC O2, CPAP, BIPAP needs Home O2 Discharge instructions: No Dressing / Incision Discharge Activity: Return to Normal Activity Dressing / Incision Call your doctor if you observe: Fever of 101 or Higher, Shortness of breath, Dizziness, Fainting spells, Swelling in the ankles, Chest pain and Increased palpitations (irregular heartbeat) Follow Up Care Test Results: Test results from this visit will be discussed in further detail at your follow- up appointment, if applicable. Discharge Plan Admission Admit Date/Time: 02/21/25 12:26 Attending Provider: Tom Crowell Primary Care Provider: Iris Potter Consulting Providers: Bev Garcia Discharge Orders/Prescriptions Prescriptions: Continued escitalopram oxalate 20 mg tablet 20 mg PO DAILY Patient Comments: states pt is taking 30mg lisinopril 10 mg tablet 10 mg PO DAILY lorazepam [Ativan] 0.5 mg tablet 0.5 mg PO DAILY Patient Comments: takes in am. 0.5 mg in am and 1mg at hs levothyroxine 75 mcg tablet 75 mcg PO DAILY lorazepam 1 mg tablet 1 mg PO .COMPLEX Rx Instructions: 1 mg orally pt takes 1 mg at hs; Vraylar 1.5 mg capsule 1.5 mg PO DAILY folic acid 1 mg Tablet 1 mg PO DAILY@0800 30 Days Qty: 30 2RF thiamine HCl (vitamin B1) 100 mg Tablet 100 mg PO DAILYCM 30 Days Qty: 30 2RF Referrals / Follow Up: Iris Potter MD [Primary Care Provider, Family Practice] - Within 1 Week Disposition Disposition (needs filled in before D/C Order can be placed): Home, Self Care
[2025-02-24 09:20] VITALS: BP 106/86; PULSE 64; RESP 16; TEMP 36.9; O2SAT 98
[2025-02-24] MEDS: Thiamine Hydrochloride 100 MG Tablet PO (09:21)
[2025-02-24] MEDS: Nicotine (PBKC) 21 MG Patch TD (09:21)
[2025-02-24] MEDS: CARIPRAZINE HCL 1.5 MG CAPSULE PO (09:22)
[2025-02-24] MEDS: Naltrexone Microspheres 380 MG SYRINGE IM (10:58)
[2025-02-24] MEDS: Vivitrol ID Card 1 EACH MC (10:59)
[2025-02-24] MEDS: Vivitrol Administration Needles 1 EACH MC (10:59)
--- NOTE | 2025-02-24 13:43 | DS.PCM_ITS ---
Providers Date of Admission: 02/21/25 Primary Care Physician: Iris Potter MD Reason For Visit: ETOH DETOX Diagnosis Discharge Diagnosis (1) Alcohol withdrawal: Status: Resolved Code(s): F10.939 - Alcohol use, unspecified with withdrawal, unspecified (2) Desire for detoxification: Status: Resolved Medications at Discharge Home Medications escitalopram oxalate 20 mg tablet 20 mg PO DAILY mood 08/21/24 lisinopril 10 mg tablet 10 mg PO DAILY bp 08/21/24 cariprazine 1.5 mg capsule (Vraylar) 1.5 mg PO DAILY anxiety 11/05/24 levothyroxine 75 mcg tablet 75 mcg PO DAILY thyroid 11/05/24 lorazepam 1 mg tablet 1 mg PO .COMPLEX sleep 11/05/24 folic acid 1 mg tablet 1 mg PO DAILY@0800 supplement 30 days #30 tabs 11/08/24 thiamine HCl (vitamin B1) 100 mg tablet 100 mg PO DAILYCM supplement 30 days #30 tabs 11/08/24 lorazepam 0.5 mg tablet (Ativan) 0.5 mg PO DAILY anxiety 02/21/25 Hospital Course Operations None Procedures None Summary of Care Provided Minutes Spent on Discharge: 34 Hospital Course: Per HPI: CARROLL BUTTS, is a 54-year-old male history of alcohol and tobacco dependence, hypertension, hypothyroidism, depression and anxiety presented to [facility] ED 02/21/2025 requesting detox from alcohol. Last went through our detox around 3 months ago but last month started drinking again due to stress from his mother's decline due to her pulmonary fibrosis. In the ED patient vitally stable and kidney function at baseline so hospitalist contacted for admission. Patient reports he has been drinking about 1/5 a day of bourbon again with his last drink around 8:00 in which he had double. Discussed that his alcohol was negative but he said that he did drink this morning. Starting to feel shaky and a little bit of abdominal cramping but no other new or acute complaints denies any illicit substance use, reports he takes Ativan at night for bedtime but this is prescribed. Also does smoke cigarettes Hospital Course: 1. Alcohol withdrawal/anxiety/depression/tobacco abuse?54-year-old male presented to the hospital requesting detox from alcohol. He was started on alcohol withdrawal protocol which he tolerated very well. He met with 180 who recommended outpatient follow-up. Prior to discharge he was given a dose of IV Vivitrol. I discussed with him the plan for discharge today and he expressed understanding of the risks and benefits of going home and would like to go home today. He will continue with his home medications of escitalopram, lorazepam, Vraylar on discharge. 2. Essential hypertension, hypothyroidism, CKD 3 are all chronic medical conditions which complicate his care. His home medications were continued where appropriate. Physical Exam Narrative General: Alert, Oriented x3, Cooperative, No apparent distress HEENT: Atraumatic, PERRLA, EOMI, Normocephalic Oral: Moist Mucosa Neck: Supple, No JVD Lungs: Clear to auscultation, Normal air movement, No rhonchi, No wheeze, No rales Cardiovascular: Regular rate, Regular Rhythm, Normal S1, Normal S2, No murmurs Abdomen: Soft, Non Tender, Non-Distended, No Hepato-splenomegaly Extremities: No edema, Capillary Refill Less than 3 Seconds Skin: No rashes, No breakdown Musculoskeletal: No Tenderness to Palpation of Joints or Extremities Neurological: No focal neurological deficits, moves all extremities, sensation intact Psych/Mental Status: Normal Affect, Appropriate Weight / BMI Weight Weight: 217 lb 5 oz Body Mass Index (BMI) 32.1 ABG / Lab / Microbiology Data 02/22/25 15:32 02/22/25 15:32 Microbiology: Microbiology 02/22/25 15:20 Mucosa - Nasopharyngeal Respiratory Panel (PCR) - Final 02/22/25 15:20 Mucosa - Nasopharyngeal Coronavirus COVID-19 PCR - Final D/C Instructions Call your doctor if you observe: Fever of 101 or Higher, Shortness of breath, Dizziness, Fainting spells, Swelling in the ankles, Chest pain and Increased palpitations (irregular heartbeat) DC O2, CPAP, BIPAP Needs Home O2 Discharge instructions: No Meaningful Use Info Meaningful Use Meaningful Use Diagnoses (Choose all that apply): None applicable Discharge Plan Admission Admit Date/Time: 02/21/25 12:26 Attending Provider: Tom Crowell Primary Care Provider: Iris Potter Consulting Providers: Bev Garcia Discharge Orders/Prescriptions Prescriptions: Continued escitalopram oxalate 20 mg tablet 20 mg PO DAILY Patient Comments: states pt is taking 30mg lisinopril 10 mg tablet 10 mg PO DAILY lorazepam [Ativan] 0.5 mg tablet 0.5 mg PO DAILY Patient Comments: takes in am. 0.5 mg in am and 1mg at hs levothyroxine 75 mcg tablet 75 mcg PO DAILY lorazepam 1 mg tablet 1 mg PO .COMPLEX Rx Instructions: 1 mg orally pt takes 1 mg at hs; Vraylar 1.5 mg capsule 1.5 mg PO DAILY folic acid 1 mg Tablet 1 mg PO DAILY@0800 30 Days Qty: 30 2RF thiamine HCl (vitamin B1) 100 mg Tablet 100 mg PO DAILYCM 30 Days Qty: 30 2RF Referrals / Follow Up: Iris Potter MD [Primary Care Provider, Family Practice] - Within 1 Week Disposition Disposition (needs filled in before D/C Order can be placed): Home, Self Care Charges/Coding Visit Charges Inpatient E&M: 69263 Disch Hosp >30min
== END 2025-02-24 11:20 | disposition home or self-care (01) | DRG 897 ==
LOC: ED 12:00 → MS3 12:31
PROVIDERS: Admitting Provider Internal Medicine; Emergency Provider Emergency Medicine; PCP Family Medicine; Visit Provider Family Medicine
DX: F10.239 Alcohol dependence with withdrawal, unspecified (principal); F31.9 Bipolar disorder, unspecified; E03.9 Hypothyroidism, unspecified; J44.9 Chronic obstructive pulmonary disease, unspecified; N18.31 Chronic kidney disease, stage 3a; E11.22 Type 2 diabetes mellitus with diabetic chronic kidney disease; I12.9 Hypertensive chronic kidney disease with stage 1 through stage 4 chronic kidney disease, or unspecified chronic kidney disease; F41.9 Anxiety disorder, unspecified; F17.210 Nicotine dependence, cigarettes, uncomplicated; Z79.899 Other long term (current) drug therapy; Y90.0 Blood alcohol level of less than 20 mg/100 ml
CPT/HCPCS: 36415; 80048; 80053; 80307; 82077; 85025; 87633; 87635; 94668; 97802; 99284; A4216